=== PATIENT | male | born 1960 | race Caucasian/White ===

== ENCOUNTER 2017-04-25 16:30 | Inpatient (IN) | payer OTHER ==
[~2017-04-25] VITALS: Ht 175.3 cm; Wt 167.5 kg
[~2017-04-25 16:30] MED LIST: AMOXICILLIN500 M2 PO; ATORVASTATIN CA40 MG PO; AUGMENTIN 875 M1 TAB PO; BUPROPION HCL150 MG PO; CEFTIN 250 #201 PAC PO; Diamox PO; FLOMAX(MONOGRA0.4 MG PO; FUROSEMIDE80 M1 PO; FUROSEMIDE80 MG PO; JANUVIA 50MG50 MG PO; K-DUR 20MEQ TA20 MEQ PO; K-DUR20 MEQ PO; KEFLEX500 M1 PO; LASIX40 MG PO; LEVEMIR 10100 UNITS/ SC; LISINOPRIL20 MG PO; NOVOLOG100 U/ML SC; PERCOCET 5-3251 EACH PO; PREDNISONE 20MG20 MG PO; PRINIVIL10 MG PO; PROAIR HFA0.09 MG/Ac INH; SPIRIVA 18 MCG18 MCG INH; VITAMIN D250000 UNIT PO
[2017-04-25 17:01] LABS: ABSOLUTE BASOPHIL COUNT 0.1 /CUMM (0.0-0.2); ABSOLUTE EOSINOPHIL COUNT 0.1 /CUMM (0.0-0.7); ABSOLUTE GRANULOCYTE CT 5.3 /CUMM (1.4-6.5); ABSOLUTE LYMPH COUNT 1.8 /CUMM (1.2-3.4); ABSOLUTE MONOCYTE COUNT 0.7 /CUMM (0.10-0.60); BASOPHIL % 0.8 % (0.0-2.0); EOSINOPHIL % 1.6 % (0-5); GRANULOCYTE % 67.1 % (42.2-75.2); HEMATOCRIT 50.6 % (42-52); MEAN CORPUSCULAR HGB 30.4 PG (27.0-31.0); MEAN CORPUSCULAR HGB CONC 32.3 G/DL (33.0-37.0); MEAN CORPUSCULAR VOLUME 94.3 FL (80.0-94.0); MEAN PLATELET VOLUME 6.7 FL (7.4-10.4); PLATELET COUNT 220 /CUMM (130-400); RBC DISTRIBUTION WIDTH 16.8 % (11.5-14.5); RED BLOOD CELL CT 5.37 /CUMM (4.70-6.10)
--- NOTE | 2017-04-25 17:20 | ED GENERAL ADULT ---
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: patient Exam Limitations: not alert/orientated, poor historian Vital Signs & Intake/Output Vital Signs & Intake/Output Vital Signs Date Time Temp Pulse Resp B/P B/P Pulse O2 O2 Flow FiO2 Mean Ox Delivery Rate 04/25 1839 97.8 74 28 112/59 90 BIPAP 40% 04/25 1736 90 93 04/25 1701 92 Nasal 4.0L Cannula 04/25 1656 22 92 Nasal 4.0L Cannula 04/25 1650 92 Nasal 4.0L Cannula 04/25 1646 98.1 88 22 116/59 85 Room Air Allergies Coded Allergies: NO KNOWN ALLERGIES (05/18/14) Reconcile Medications Furosemide 80 MG TABLET 1 TAB PO TID FLUID OVERLOAD (Reported) Triage Note: RECEIVED 57 YO MALE BOUGHT DIRECTLY TO ROOM # 11 FOR TRIAGE AND EVALUATION. PT PRESENTED TO [facility] DESK WITH AN O2 SAT OF 85%. PT REPORTS WORSENING DIFFICULTY BREATHING STARTED LAST WEEK WITH PRODUCTIVE COUGH. PT WITH PMH OF COPD, + SMOKER, NOT ON O2 AT HOME. O2 SATS 85% ON ROOM AIR UPON ARRIVAL TO ROOM # 11. PT'S LEGS CHRONICALLY EDEMATOUS. PT EVALUATED BY DR MARIN. RESP THERAPIST IN TO EVALUATE PT AND ADMINISTER MED NEB TX ORDERED. Triage Nurses Notes Reviewed? yes Onset: Abrupt Duration: hour(s): Timing: recent history HPI: 04/25/17 8 PM 57-year-old male presents to the emergency department for difficulty breathing and cough. He has a severe history of hypercarbic respiratory failure and COPD. He is on CPAP. Known to the respiratory staff. He now presents with several days of cough and difficulty breathing. He denies chest pain. On presentation his O2 sat was in the 80s. 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 Albuterol and Atrovent nebulizer treatments were given. Respiratory therapy was called and the patient was placed on BiPAP. Past History Travel History Traveled to [place] past 21 day No Medical History Any Pertinent Medical History? 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 No Review of Systems Review of Systems Constitutional: Denies: fever. EENTM: Reports: no symptoms. Respiratory: Reports: cough, short of breath. Cardiovascular: Denies: chest pain. GI: Denies: abdominal pain. Genitourinary: Reports: no symptoms. Musculoskeletal: Reports: no symptoms. Skin: Reports: rash (stasis dermatitis). Neurological/Psychological: Reports: anxiety. Hematologic/Endocrine: Denies: bruising, bleeding. Physical Exam Physical Exam General Appearance: awake, anxious, severe distress Head: atraumatic, normal appearance Eyes: Bilateral: normal appearance, PERRL, EOMI. Ears, Nose, Throat: normal ENT inspection Neck: supple Respiratory: decreased breath sounds Cardiovascular: tachycardia Peripheral Pulses: 4+ radial (R), 4+ radial (L) Gastrointestinal: soft, non-tender Back: decreased range of motion Extremities: pedal edema, swelling Neurologic/Psych: no motor/sensory deficits, awake, oriented x 3 Skin: rash (stasis dermatitis) Core Measures ACS in differential dx? No CVA/TIA Diagnosis: No Sepsis Present: No Sepsis Focused Exam Completed? No Progress Differential Diagnoses I considered the following diagnoses in my evaluation of the patient: Plan of Care: Orders Procedure Date/time Status Nothing by Mouth 04/26 B Active Patient Data 04/25 1954 Active ED Holding Orders 04/25 1942 Active Admit to inpatient 04/25 1942 Active Vital Signs 04/25 1942 Active Code Status 04/25 1942 Active Intake & Output 04/25 1840 Active ARTERIAL BLOOD GAS (GEN) 04/25 1830 Complete Add-on Test (ER Only) 04/25 171 Active BIPAP 04/25 1710 Complete TROPONIN LEVEL 04/25 1653 Complete PROTHROMBIN TIME 04/25 1653 Complete D-DIMER 04/25 1653 Complete COMPREHENSIVE METABOLIC PANEL 04/25 1653 Complete CBC WITHOUT DIFFERENTIAL 04/25 1653 Complete B-TYPE NATRIURETIC PEP (BNP) 04/25 1653 Complete EKG 04/25 163 Active ARTERIAL BLOOD GAS (GEN) 04/25 1630 Complete Current Medications Sig/Teo Start time Last Medication Dose Stop Time Status Admin Ceftriaxone Sodium 1,000 MG ONCE ONE 04/25 2014 UNVr (Rocephin) 04/26 2015 Laboratory Tests 04/25/17 1830: pH 7.36, pCO2 62 *H, pO2 62 L, HCO3 34 H, ABG O2 Sat (Measured) 82.0 L, P-50 (Temp Corrected) N, Carboxyhemoglobin 10.0 *H, O2 Concentration % 40%, Temperature 98.1, Respiration Rate 28, O2 Delivery Method BIPAP, Vent Mode ST, Expiratory Pressure 8, Inspiratory Pressure 24, Phlebotomy Draw Site RIGHT RADIAL 04/25/17 1700: pH 7.34 L, pCO2 63 *H, pO2 66 L, HCO3 33 H, ABG O2 Sat (Measured) 82.0 L, P- 50 (Temp Corrected) N, Carboxyhemoglobin 10.9 *H, O2 Concentration % 4L, Temperature 98.1, O2 Delivery Method NC, Phlebotomy Draw Site RIGHT RADIAL 04/25/17 1654: Anion Gap 7, Estimated GFR > 60, BUN/Creatinine Ratio 24.3, Glucose 166 H, Calcium 8.4, Total Bilirubin 0.6, AST 19, ALT 38, Alkaline Phosphatase 83, Troponin I < 0.01, Nta-G-Ekxdysppssz Pept 158 H, Total Protein 6.7, Albumin 3.4 L, Globulin 3.3, Albumin/Globulin Ratio 1.0 L, PT 11.8, INR 1.08, D-Dimer High Sensitivty < 200, CBC w Diff NO MAN DIFF REQ, RBC 5.37, MCV 94.3 H, MCH 30.4, MCHC 32.3 L, RDW 16.8 H, MPV 6.7 L, Gran % 67.1, Lymphocytes % 22.2, Monocytes % 8.3, Eosinophils % 1.6, Basophils % 0.8, Absolute Granulocytes 5.3, Absolute Lymphocytes 1.8, Absolute Monocytes 0.7 H, Absolute Eosinophils 0.1, Absolute Basophils 0.1 CXR Impression: pulmonary vascular congestion- interpreted by the radiologist Initial ED EKG: NSR, PACs Prior EKG: unchanged Departure Departure Disposition: STILL A PATIENT Condition: Stable Clinical Impression Primary Impression: Hypercapnic respiratory failure Secondary Impressions: Congestive heart failure, COPD (chronic obstructive pulmonary disease) Referrals: Corey PALM,Orion Rankin (PCP/Family) Departure Forms: Customer Survey General Discharge Information Comments 04/25/17 The patient was admitted to the ICU for further care. I spoke with the respiratory therapist, a third blood gas will be obtained to assess response to BiPAP adjustment. IV Lasix was given initially as the chest x-ray was read as pulmonary vascular congestion. He was treated with albuterol and Atrovent, IV steroids, IV antibiotics, BiPAP. Admission Note Spoke With: Percy Camacho MD Documentation of Exam: Documentation of any treatments & extenuating circumstances including Concerns Regarding Discharge (functional status, medication knowledge or non-compliance, living conditions, etc.) that warrant an admission rather than observation: [The patient needs cardiac monitoring and continuous pulse oximetry, serial troponins , nebulizer treatments every 4 hours, IV steroids, consider pulmonary consult, oxygen, BiPAP] Critical Care Note Critical Care Note Critical Care Time: 30-74 min
[2017-04-25 17:37] LABS: PT 11.8 SEC (9.4-12.5)
--- NOTE | 2017-04-25 18:10 | RADIOLOGY REPORT ---
EXAMINATION: XR PORTABLE CHEST CLINICAL INFORMATION: Shortness of breath COMPARISON: 07/03/2015 TECHNIQUE: Portable frontal view of the chest was obtained. FINDINGS: Lung bases are clipped on this study. Recommend repeat filming. There does appear to be vascular congestion. No convincing evidence for overt failure. Extremely limited from body habitus. IMPRESSION: Incomplete exam. Lung bases are clipped. Findings otherwise suggest vascular congestion.
--- NOTE | 2017-04-25 20:42 | History & Physical ---
Clarence Plascencia MD 04/25/172041: General Information and HPI History of Present Illness: 57-year-old man with past medical history of chronic hypercarbic respiratory failure, TAN noncompliant with CPAP, cor pulmonale, COPD, PR, diabetes, hypothyroidism, gastric bypass hypertension, hyperlipidemia, chronic lymphedema seen for evaluation of shortness of breath and cough. Patient was previously admitted to [facility] from 07/03/15-07/08/15 for evaluation of a left lower extremity wound for which she was admitted with left lower extremity cellulitis and sepsis. Upon arrival patient was found to be saturating 85% in triage for which he was placed on supplemental oxygen and given a breathing treatment. He reported several day cough with difficulty breathing to the ED provider. Upon my arrival to the ED patient was somnolent and lethargic and not answering questions as he was on BiPAP. Subjective complaints and review of systems are unobtainable. Collateral information was obtained from patient's girlfriend Dorothy . She reports that patient developed shortness of breath with cough on Monday that had been waxing/waning since that time. This morning his shortness of breath was particularly bad for which she said the patient said he was going to the hospital. He did not endorse any other complaints. Allergies/Medications Allergies: Coded Allergies: NO KNOWN ALLERGIES (05/18/14) Home Med list Furosemide 80 MG TABLET 1 TAB PO TID FLUID OVERLOAD (Reported) Past History Travel History Traveled to [place] past 21 day No Medical History Neurological: NONE EENT: TUBES IN EARS CHILD Cardiovascular: chronic venous insuff, hypertension, myocardial infarction, HYPERLIPIDEMIA HIGH CHOLESTEROL right heart failure diastolic heart failure cor pulmonale Respiratory: COPD, obstructive sleep apnea Gastrointestinal: NONE Hepatic: NONE Musculoskeletal: MULTIPLE BROKEN BONES IN PAST NECK DISCECTOMY Psychiatric: NONE Endocrine: diabetes, hypothyroidism Blood Disorders: NONE Cancer(s): NONE, liver cancer 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 Exam & Diagnostic Data Last 24 Hrs of Vital Signs/I&O Vital Signs Date Time Temp Pulse Resp B/P B/P Pulse O2 O2 Flow FiO2 Mean Ox Delivery Rate 04/25 2213 88 BIPAP 40% 04/25 2213 97.6 78 33 108/00 88 BIPAP 40% 04/25 2156 75 30 123/70 87 BIPAP 40% 04/25 2054 98.3 74 20 122/66 93 BIPAP 40% 04/25 1839 97.8 74 28 112/59 90 BIPAP 40% 04/25 1736 90 93 04/25 1701 92 Nasal 4.0L Cannula 04/25 1656 22 92 Nasal 4.0L Cannula 04/25 1650 92 Nasal 4.0L Cannula 04/25 1646 98.1 88 22 116/59 85 Room Air Physical Exam General Appearance Somnolent, lethargic, minimally responsive Skin No Rashes, No Breakdown, No Significant Lesion Skin Temp/Moisture Exam: Warm/Dry Sepsis Skin Exam (color): Normal for Ethnicity HEENT Atraumatic, PERRLA, EOMI, Mucous Membr. moist/pink Neck Supple, No JVD Cardiovascular Regular Rate, Normal S1, Normal S2, No Murmurs Lungs Clear to Auscultation, Diminished airflow in all lung garcia with scattered rhonchi anteriorly, no wheezing or crackles Abdomen Normal Bowel Sounds, Soft, No Tenderness, No Hepatospenomegaly, No Masses Neurological Somnolent, AAOx0, follows simple commands Extremities No Clubbing, No Cyanosis, No Edema, Normal Pulses, No Tenderness/ Swelling, 4+ bilateral lower extremity swelling with severe scaling, no open wounds Vascular Normal Pulses, Pulses Symmetrical Sepsis Peripheral Pulse Location: Dorsalis Pedis Last 24 Hrs of Labs/Donato: Laboratory Tests 04/25/17 2100: Urine Opiates Screen < 100, Methadone Screen < 40, Barbiturate Screen < 60, Ur Phencyclidine Scrn < 6.00, Amphetamines Screen < 100, U Benzodiazepines Scrn < 85, Urine Cocaine Screen < 50, Urine Cannabis Screen < 5.00, Urine Color YEL, Urine Clarity CLEAR, Urine pH 6.0, Ur Specific [place] 1.020, Urine Protein NEG, Urine Ketones NEG, Urine Nitrite NEG, Urine Bilirubin NEG, Urine Urobilinogen 0.2, Ur Leukocyte Esterase NEG, Ur Microscopic EXAM NOT REQUIRED, Urine Hemoglobin NEG, Urine Glucose NEG 04/25/17 2020: pH 7.36, pCO2 62 *H, pO2 61 L, HCO3 34 H, ABG O2 Sat (Measured) 82.0 L, P-50 (Temp Corrected) N, Carboxyhemoglobin 9.0 *H, O2 Concentration % 40%, Temperature 98.1, Respiration Rate 30, O2 Delivery Method BIPAP, Vent Mode ST, Expiratory Pressure 8, Inspiratory Pressure 26, Phlebotomy Draw Site RIGHT RADIAL 04/25/17 1830: pH 7.36, pCO2 62 *H, pO2 62 L, HCO3 34 H, ABG O2 Sat (Measured) 82.0 L, P-50 (Temp Corrected) N, Carboxyhemoglobin 10.0 *H, O2 Concentration % 40%, Temperature 98.1, Respiration Rate 28, O2 Delivery Method BIPAP, Vent Mode ST, Expiratory Pressure 8, Inspiratory Pressure 24, Phlebotomy Draw Site RIGHT RADIAL 04/25/17 1700: pH 7.34 L, pCO2 63 *H, pO2 66 L, HCO3 33 H, ABG O2 Sat (Measured) 82.0 L, P- 50 (Temp Corrected) N, Carboxyhemoglobin 10.9 *H, O2 Concentration % 4L, Temperature 98.1, O2 Delivery Method NC, Phlebotomy Draw Site RIGHT RADIAL 04/25/17 1654: Anion Gap 7, Estimated GFR > 60, BUN/Creatinine Ratio 24.3, Glucose 166 H, Calcium 8.4, Total Bilirubin 0.6, AST 19, ALT 38, Alkaline Phosphatase 83, Troponin I < 0.01, Zvr-R-Gjhozkojxei Pept 158 H, Total Protein 6.7, Albumin 3.4 L, Globulin 3.3, Albumin/Globulin Ratio 1.0 L, PT 11.8, INR 1.08, D-Dimer High Sensitivty < 200, CBC w Diff NO MAN DIFF REQ, RBC 5.37, MCV 94.3 H, MCH 30.4, MCHC 32.3 L, RDW 16.8 H, MPV 6.7 L, Gran % 67.1, Lymphocytes % 22.2, Monocytes % 8.3, Eosinophils % 1.6, Basophils % 0.8, Absolute Granulocytes 5.3, Absolute Lymphocytes 1.8, Absolute Monocytes 0.7 H, Absolute Eosinophils 0.1, Absolute Basophils 0.1 Microbiology 04/26 2219 UPPER RESP: Surveillance Culture - RECD 04/26 2219 GI: Surveillance Culture - RECD 04/25 2104 LOWER RESP: Respiratory Culture - ORD 04/25 2104 LOWER RESP: Gram Stain - ORD 04/25 2099 URINE ROUT: Urine Culture - RECD Assessment/Plan Assessment: 57-year-old man with multiple medical problems seen for evaluation of worsening shortness of breath and cough. ED course -Vitals: MAXIMUM TEMPERATURE 98.1, HR 74-90, RR 22-28, SBP 112-116, O2 85% on room air -CBC: WBC 8.0, hemoglobin 16.3, hematocrit 50.6, platelet 220 -BMP: Sodium 135, potassium 3.8, chloride 89, CO2 39, urea 17, creatinine 0.7, anion gap 7, glucose 166 -LFT: AST 19 ALT 38, ALP 83, total bilirubin 0.6 -Miscellaneous: Kristopher 3.4, troponin I <0.01, d-dimer <200 are 1.08, BNP 158 -EKG 04/25/17 1651: NSR with poor r-wave progression -Chest x-ray: Incomplete exam, lung bases are clipped, findings otherwise suggest vascular congestion -ABG: PH 7.34, PCO2 63, PO2 66, HC03 33 -Urine toxicology: Negative -Urinalysis: Unremarkable Given patient's hypoxia and hypercarbia with a history of chronic respiratory failure and subjective shortness of breath patient clinically appears to have an acute hypercarbic/hypoxic respiratory failure with a COPD exacerbation. He is maintained on BiPAP and is minimally arousable. He is started on intravenous steroids/antibiotics and scheduled nebulizer treatments. He is to be seen by his drier Dr. Talbot in the morning. Problem List -Acute Hypoxic/Hypercarbic on chronic respiratory failure -COPD exacerbation -TAN noncompliant with CPAP -Cor pulmonale -Myocardial infarction -Eve-qhmjlqe-tvyqayknw Diabetes mellitus -Hypothyroidism -History of gastric bypass -Hypertension -Hyperlipidemia -Chronic lymphedema -Morbid obesity Plan -ICU Admission -TRC -Albuterol/Ipratropium Nebs Q6H -BiPAP: 26/8, 40%FiO2, Rate 30 -Morrell catheter -Ins & Outs -Elevate head of head -Solumedrol 40 mg IV Q6H -Azithromycin 500 mg IV Daily -PO lasix converted to IV, 80 mg PO -> 40 mg IV BID -Sputum culture -Pain control with acetaminophen -NPO for somnolence -DVT PPx with lovenox -FULL CODE As Ranked By This Provider Problem List: 1. COPD (chronic obstructive pulmonary disease) Core Measures/Misc (10/23) Acute Coronary Syndrome ACS Diagnosis: No Congestive Heart Failure Congestive Heart Failure Diagnosis No Cerebrovascular Accident CVA/TIA Diagnosis: No VTE (View Protocol) VTE Risk Factors Age>40 No Mechanical VTE Prophylaxis d/t N/A MechProphylax Ordered No VTE Pharm Prophylaxis d/t NA PharmProphylax ordered Sepsis (View protocol) Sepsis Present: No Doug PALM, [facility] 04/25/17 6758: Attending MD Review Statement Attending Statement Attending MD Statement: examined this patient, discuss w/resident/PA/CUPOLA OPERATOR INSULATION, agreed w/resident/PA/CUPOLA OPERATOR INSULATION, reviewed images, amended to note Attending Assessment/Plan: 57 yo morbidly obese M with h/o chronic respiratory failure, cor pulmonale ( right than left heart dysfunction), diastolic heart failure, chronic hypercarbia , TAN not compliant with CPAP, COPD, continues to smoke 1-2 PPD, HTN, DM, s/p gastric bypass sleeve surgery (2014), chronic lymphedema with previous recurrent cellulitis, presented to the ER for evaluation of worsening dyspnea and productive cough. On ER arrival, patient c/o chest tightness, his O2 sats were 85% on RA and he was placed on oxygen via NC and then transitioned to Bipap. Patient does not provide any history, he was lethargic at the time of evaluation and would only open his eyes to verbal commands. When asked if he has any chest pain or abdominal pain, he said no. History is very limited. As per records, patient was on oxygen at home, unclear if he still uses it. The only medication listed on his claim history is lasix 80 mg TID unknown if he is compliant with this. Vitals: afebrile, HR 70-80's, BP 122/66, sats 95% RA --> 92% on 4L --> 87 90% on Bipap 40%. Exam: Morbidly obese male, lethargic, minimal responsiveness to verbal stimuli, unable to assess orientation, currently on Bipap. Pupils equal and RTL, MMM, Chest b/l diminished air entry, with rhonchi++, mild wheezing, Heart S1S2 regular, Abd soft, distended, obese, LE: b/l lymphedema and chronic venous stasis skin changes. Pulses feeble but palpable. Unable to assess neuro exam. Labs: no leukocytosis, D-dimer <200, Na 135, bicarb 39, glucose 166, trop neg. ProBNP 158. AB.34/63/66/33 --> 7.36/62/62/34. UA and Utox negative. CXR: Pulmonary vascular congestion. EKG: sinus rhythm, PAC's, no acute changes. Echo (2014): EF 70%, moderate LVH, mild prolapse of posterior mitral valve leaflet. Assessment and plan: 1. Acute on chronic hypercarbic and hypoxemic respiratory failure 2. COPD exacerbation from possible acute bronchitis, no evidence of pneumonia 3. Acute on chronic diastolic heart failure 4. Severe cor pulmonale from TAN 5. Significant smoking history with carboxyhemoglobinemia 6. Severe lymphedema - Admit to ICU - Vitals Q1 hourly - Fall, aspiration precautions - Maintain on Bipap, check ABG at midnight and AM - Bipap settings adjusted with minimal to no change in ABG, clinically patient is more arousable and responds to verbal commands. Keep O2 sats ~ 88-90%. Low threshold to intubate. - TRC nebs, sputum culture if he is able to expectorate - IV solumedrol 40 Q6 - IV azithro for 5 days - Pulm consult Dr. Talbot - Strict I/O's, daily weights, morrell placement - IV lasix 40 BID - Serial EKG and troponin - Repeat Echo and obtain Cardio consult (Dr. Browne) - Obtain more collateral information in AM - NPO - Check TSH, free T4, Mag - GI ppx IV protonix DVT ppx Lovenox. Full code. TTS > 55 mins
--- NOTE | 2017-04-25 21:55 | Admission Certification ---
Admission Certification Certification Statement - As attending physician, I certify that at the time of - admission, based on clinical presentation, severity of - symptoms, need for further diagnostic testing and - therapeutic interventions, and risk of adverse outcomes - without in-hospital treatment, in my clinical assessment, - this patient requires an acute hospital stay for a minimum - of two nights or longer. I have also considered psychsocial - factors such as support system, advanced age, financial - issues, cognitive issues, and failed out-patient treatments, - past re-admission history, safety of patient, and lack of - compliance as applicable. Specific rationale supporting this admission is: Acute on chronic hypercarbic and hypoxemic respiratory failure, requiring ICU level of care.
[2017-04-25 22:14] VITALS: BP 108/00
[2017-04-26] VITALS: BP 110/68
[2017-04-26 03:09] LABS: ABSOLUTE BASOPHIL COUNT 0 /CUMM (0.0-0.2); ABSOLUTE EOSINOPHIL COUNT 0 /CUMM (0.0-0.7); ABSOLUTE LYMPH COUNT 0.5 /CUMM (1.2-3.4); PLATELET COUNT 177 /CUMM (130-400)
[2017-04-26 03:52] LABS: ABSOLUTE GRANULOCYTE CT 7.2 /CUMM (1.4-6.5); ABSOLUTE MONOCYTE COUNT 0 /CUMM (0.10-0.60); BASOPHIL % 0 % (0.0-2.0); EOSINOPHIL % 0 % (0-5); GRANULOCYTE % 92.6 % (42.2-75.2); HEMATOCRIT 52.2 % (42-52); MEAN CORPUSCULAR HGB 30.1 PG (27.0-31.0); MEAN CORPUSCULAR VOLUME 94.4 FL (80.0-94.0); MEAN PLATELET VOLUME 7.4 FL (7.4-10.4); RBC DISTRIBUTION WIDTH 15.9 % (11.5-14.5); RED BLOOD CELL CT 5.53 /CUMM (4.70-6.10); WHITE BLOOD CELL COUNT 7.8 /CUMM (4.8-10.8)
--- NOTE | 2017-04-26 07:17 | Cons- CRCU ---
General Information and HPI Consulting Request Date of Consult: 04/26/17 Requested By: Hospitalist Dr Percy Camacho Reason for Consult: Acute on chronic hypoxic hypercarbic respiratory failure Source of Information: patient, friend (Dorothy) Exam Limitations: no limitations History of Present Illness: 57-year-old man with past medical history of chronic hypercarbic respiratory failure, TAN noncompliant with CPAP, cor pulmonale, COPD, [place], diabetes, hypothyroidism, gastric bypass hypertension, hyperlipidemia, chronic lymphedema seen for evaluation of shortness of breath and cough. Patient was previously admitted to [facility] from 07/03/15-07/08/15 for evaluation of a left lower extremity wound for which she was admitted with left lower extremity cellulitis and sepsis. Upon arrival patient was found to be saturating 85% in triage for which he was placed on supplemental oxygen and given a breathing treatment. He reported several day cough with difficulty breathing to the ED provider. Upon my arrival to the ED patient was somnolent and lethargic and not answering questions as he was on BiPAP. Subjective complaints and review of systems are unobtainable. Collateral information was obtained from patient's girlfriend Dorothy . She reports that patient developed shortness of breath with cough on Monday that had been waxing/waning since that time. This morning his shortness of breath was particularly bad for which she said the patient said he was going to the hospital. He did not endorse any other complaints. Allergies/Medications Allergies: Coded Allergies: NO KNOWN ALLERGIES (05/18/14) Home Med List: Furosemide 80 MG TABLET 1 TAB PO TID FLUID OVERLOAD (Reported) Current Medications: Current Medications Sig/Teo Start time Last Medication Dose Route Stop Time Status Admin Acetaminophen 1,000 MG Q6P PRN 04/25 2099 AC IV Albuterol Sulfate 3 ML TID 04/26 1600 AC 04/26 INH 1337 Albuterol Sulfate 3 ML Q6 PRN 04/25 2114 DC INH Azithromycin 500 MG 2100 04/26 2099 AC Dextrose/Water 250 ML IV Azithromycin 500 MG DAILY 04/25 2100 DC Dextrose/Water 250 ML IV Azithromycin 500 MG ONCE ONE 04/25 2044 DC 04/25 Dextrose/Water 250 ML IV 04/25 Ceftriaxone Sodium 1,000 MG ONCE ONE 04/25 2014 CAN IV 04/26 2015 Enoxaparin Sodium 40 MG DAILY 04/26 1000 AC 04/26 SC 0949 Furosemide 40 MG BID 04/26 1000 AC 04/26 IV 0949 Furosemide 40 MG TID 04/25 2200 DC IV Insulin Aspart 0 TIDAC 04/26 1700 AC 04/26 SC 1633 Insulin Human Regular 0 Q6 04/26 1200 DC 04/26 SC 1203 Ipratropium [place] 2.5 ML TID 04/26 1600 AC 04/26 INH 1337 Ipratropium [place] 2.5 ML Q6 04/25 2359 DC INH Methylprednisolone 40 MG DAILY 04/27 1000 AC IV Methylprednisolone 40 MG Q6 04/25 2359 DC 04/26 IV 0526 Methylprednisolone 0 .STK-MED ONE 04/25 2002 DC .ROUTE Ondansetron HCl 4 MG Q6P PRN 04/26 1545 AC IV Review of Systems Review of Systems Constitutional: Reports: no symptoms. EENTM: Reports: no symptoms. Cardiovascular: Reports: no symptoms. Respiratory: Reports: see HPI, cough, short of breath. GI: Reports: no symptoms. Genitourinary: Reports: no symptoms. Musculoskeletal: Reports: no symptoms. Skin: Reports: no symptoms. Neurological/Psychological: Reports: no symptoms. Hematologic/Endocrine: Reports: no symptoms. 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 Home Services at Home: None Smoking Status: Current Everyday Smoker Functional Ability ADLs Independent: dressing, eating, toileting, bathing. Ambulation: independent IADLs Independent: shopping, housework, finances, food prep, telephone, transportation , medication admin. Exam & Diagnostic Data Last 24 Hrs of Vital Signs/I&O Vital Signs Date Time Temp Pulse Resp B/P B/P Pulse O2 O2 Flow FiO2 Mean Ox Delivery Rate 04/26 1659 91 Nasal 6.0L Cannula 04/26 1600 97.3 74 20 104/60 90 Nasal 5.0L Cannula 04/26 1600 91 Nasal 5.0L Cannula 04/26 1404 Nasal 5.0L Cannula 04/26 1200 96 BIPAP 55% 04/26 1148 68 93 04/26 0821 70 92 04/26 0800 97.8 68 30 110/60 93 BIPAP 55% 04/26 0800 91 BIPAP 55% 04/26 0614 67 87 04/26 0400 86 BIPAP 55% 04/26 0211 67 88 04/26 0015 68 90 04/26 0000 89 BIPAP 45% 04/26 0000 97.8 66 30 110/68 89 BIPAP 45% 04/25 2214 88 BIPAP 40% 04/25 2214 97.6 78 33 108/00 88 BIPAP 40% 04/25 2156 75 30 123/70 87 BIPAP 40% 04/25 2054 98.3 74 20 122/66 93 BIPAP 40% Intake & Output 04/26 1600 04/26 0800 04/26 0000 Intake Total 30 24 250 Output Total 650 240 200 Balance -620 -216 50 Intake, IV 30 24 250 Intake, Oral 0 0 Number 0 0 Bowel Movements Output, Urine 650 240 200 Patient 169.218 kg 171.3 kg Weight Weight Bed scale Bed scale Measurement Method Physical Exam General Appearance: alert, awake, morbidly obese, using BiPAP Other Physical Findings: Full examination was performed after the patient was off BiPAP: Skin Rough, DRY SKIN, No Rashes, No Breakdown, No Significant Lesion HEENT Atraumatic, PERRLA, EOMI, Mucous Membr. moist/pink Neck Supple, No JVD Cardiovascular Regular Rate, Normal S1, Normal S2, No Murmurs Lungs Clear to Auscultation, no wheezing or crackles Abdomen Normal Bowel Sounds, Soft, No Tenderness Neurological grossly intact Extremities No Clubbing, No Cyanosis, Normal Pulses, No Tenderness/Swelling, 4+ bilateral lower extremity swelling with severe scaling, no open wounds Vascular Normal Pulses, Pulses Symmetrical Last 48 Hrs of Labs/Donato: Laboratory Tests 03/21/18 1815: Anion Gap 9, Estimated GFR > 60, Glucose 181 H, Calcium 8.4, Phosphorus 3.8, Magnesium 1.9, Total Bilirubin 0.6, AST 18, ALT 35, Albumin 3.5 04/26/17 0625: pH 7.38, pCO2 59 H, pO2 60 L, HCO3 34 H, ABG O2 Sat (Measured) 90.0 L, P-50 (Temp Corrected) N, Carboxyhemoglobin 4.3, O2 Concentration % .55, Respiration Rate 30, O2 Delivery Method BIPAP, Vent Mode ST, Expiratory Pressure 8, Inspiratory Pressure 28, Phlebotomy Draw Site LEFT RADIAL 04/26/17 0530: Ferritin 46.9, Vitamin B12 479, Folate 12.6, TSH 0.949, Free T4 1.12 04/26/17 0500: Troponin I Cancelled 04/26/17 0230: Anion Gap 10, Estimated GFR > 60, Glucose 206 H, Hemoglobin A1c 8.1 H, Calcium 8.3 L, Phosphorus 4.3, Magnesium 2.0, Total Bilirubin 0.6, AST 22, ALT 44, Troponin I < 0.01, Albumin 3.6, CBC w Diff MAN DIFF ORDERED, RBC 5.53, MCV 94.4 H, MCH 30.1, MCHC 32.0 L, RDW 15.9 H, MPV 7.4, Gran % 92.6 H, Lymphocytes % 6.9 L, Monocytes % 0.5 L, Eosinophils % 0, Basophils % 0, Absolute Granulocytes 7.2 H, Segmented Neutrophils 82 H, Band Neutrophils 4, Absolute Lymphocytes 0.5 L, Lymphocytes 10 L, Monocytes 4, Absolute Monocytes 0 L, Absolute Eosinophils 0, Absolute Basophils 0, Platelet Estimate ADEQUATE, Polychromasia 1+, Anisocytosis 1+, Stomatocytes 1+, Elliptocytes FEW 04/26/17 0100: pH 7.34 L, pCO2 67 *H, pO2 58 L, HCO3 35 H, ABG O2 Sat (Measured) 89.0 L, P- 50 (Temp Corrected) N, Carboxyhemoglobin 7.1 *H, O2 Concentration % .50, Respiration Rate 30, O2 Delivery Method BIPAP, Vent Mode ST, Expiratory Pressure 8, Inspiratory Pressure 28, Phlebotomy Draw Site LEFT RADIAL 04/25/17 2100: Urine Opiates Screen < 100, Methadone Screen < 40, Barbiturate Screen < 60, Ur Phencyclidine Scrn < 6.00, Amphetamines Screen < 100, U Benzodiazepines Scrn < 85, Urine Cocaine Screen < 50, Urine Cannabis Screen < 5.00, Urine Color YEL, Urine Clarity CLEAR, Urine pH 6.0, Ur Specific [place] 1.020, Urine Protein NEG, Urine Ketones NEG, Urine Nitrite NEG, Urine Bilirubin NEG, Urine Urobilinogen 0.2, Ur Leukocyte Esterase NEG, Ur Microscopic EXAM NOT REQUIRED, Urine Hemoglobin NEG, Urine Glucose NEG 04/25/17 2020: pH 7.36, pCO2 62 *H, pO2 61 L, HCO3 34 H, ABG O2 Sat (Measured) 82.0 L, P-50 (Temp Corrected) N, Carboxyhemoglobin 9.0 *H, O2 Concentration % 40%, Temperature 98.1, Respiration Rate 30, O2 Delivery Method BIPAP, Vent Mode ST, Expiratory Pressure 8, Inspiratory Pressure 26, Phlebotomy Draw Site RIGHT RADIAL 04/25/17 1830: pH 7.36, pCO2 62 *H, pO2 62 L, HCO3 34 H, ABG O2 Sat (Measured) 82.0 L, P-50 (Temp Corrected) N, Carboxyhemoglobin 10.0 *H, O2 Concentration % 40%, Temperature 98.1, Respiration Rate 28, O2 Delivery Method BIPAP, Vent Mode ST, Expiratory Pressure 8, Inspiratory Pressure 24, Phlebotomy Draw Site RIGHT RADIAL 04/25/17 1700: pH 7.34 L, pCO2 63 *H, pO2 66 L, HCO3 33 H, ABG O2 Sat (Measured) 82.0 L, P- 50 (Temp Corrected) N, Carboxyhemoglobin 10.9 *H, O2 Concentration % 4L, Temperature 98.1, O2 Delivery Method NC, Phlebotomy Draw Site RIGHT [facility] 04/25/17 1654: Anion Gap 7, Estimated GFR > 60, BUN/Creatinine Ratio 24.3, Glucose 166 H, Calcium 8.4, Total Bilirubin 0.6, AST 19, ALT 38, Alkaline Phosphatase 83, Troponin I < 0.01, Ewg-M-Gpulqcudodn Pept 158 H, Total Protein 6.7, Albumin 3.4 L, Globulin 3.3, Albumin/Globulin Ratio 1.0 L, PT 11.8, INR 1.08, D-Dimer High Sensitivty < 200, CBC w Diff NO MAN DIFF REQ, RBC 5.37, MCV 94.3 H, MCH 30.4, MCHC 32.3 L, RDW 16.8 H, MPV 6.7 L, Gran % 67.1, Lymphocytes % 22.2, Monocytes % 8.3, Eosinophils % 1.6, Basophils % 0.8, Absolute Granulocytes 5.3, Absolute Lymphocytes 1.8, Absolute Monocytes 0.7 H, Absolute Eosinophils 0.1, Absolute Basophils 0.1 Assessment/Plan CRCU Impression/Plan: 57-year-old male with past history of COPD, obstructive sleep apnea noncompliant with CPAP, cor pulmonale, WI, hypertension, hyperlipidemia, diabetes, hypothyroidism, gastric bypass surgery, chronic lymphedema presented to the emergency department with shortness of breath and cough. He is being treated in the ICU for the following issues: #Acute on chronic hypoxic hypercarbic respiratory failure, secondary to COPD exacerbation, acute bronchitis Patient's clinical picture, lab values, and a fairly benign chest x-ray is suggestive of acute bronchitis that exacerbated his COPD and landed up in acute respiratory failure as shown by the ABG. He received BiPAP treatments until this morning, and later during the day was saturating well on nasal cannula. Lower extremity Dopplers were negative for DVT. * Will continue management in ICU * Continue azithromycin * Continue steroid, change frequency to daily * Continue TRC/nebs * Continue IV Lasix 40 mg BID * Follow Sputum culture * Shane Talbot MD consulting, will follow recommendations #Diabetes mellitus Patient's previous as be A1c levels consistently so that he wasn't diabetic range although the patient had not accepted the diagnosis yet according to the discussions with the patient himself and his PCP Orion Nicole MD. we had a conversation about the condition, and he agreed to continue diabetes care at least for this admission and would further follow-up with his PCP. * Diabetic diet, insulin sliding scale/low-dose as he is Insulin naive, and regular accuchecks. #Cardiology recs: Followed troponin x2, EKG to rule out ACS, and following diuresis. Echo results pending. #Patient's TFT is normal and I also checked with his PCP and his pharmacy that he does not take any Levothyroxine, nor had any hypothyroidism anytime in the past. #Diet: Initially NPO, was given CC2 diet, after bedside swallow screening by me #DVT ppx:SQ Lovenox #Code status: Full code Consult Acknowledgment - Thank you for your consult request.
[2017-04-26 08:00] VITALS: BP 110/60
--- NOTE | 2017-04-26 09:27 | PN- CRCU ---
Subjective HPI/Critical Care Issues: 57-year-old man with past medical history of chronic hypercarbic respiratory failure, TAN noncompliant with CPAP, cor pulmonale, COPD, [place], diabetes, hypothyroidism, gastric bypass hypertension, hyperlipidemia, chronic lymphedema seen for evaluation of shortness of breath and cough. Patient was previously admitted to [facility] from 07/03/15-07/08/15 for evaluation of a left lower extremity wound for which she was admitted with left lower extremity cellulitis and sepsis. Per history patient developed shortness of breath with cough on Monday that had been waxing/waning since that time. Since then he came in to the ER yesterday and was promptly put on bipap. Since then he has stablilized This am on bipap and was awake and alert and did say that he is slightly better No other history could be obtained due to patients condition Objective Current Medications: Current Medications Sig/Teo Start time Last Medication Dose Route Stop Time Status Admin Acetaminophen 1,000 MG Q6P PRN 04/25 2099 AC IV Albuterol Sulfate 3 ML Q6 PRN 04/25 2114 AC INH Albuterol Sulfate 3 ML ONCE ONE 04/25 1944 DC 04/25 INH 04/25 1945 165 Azithromycin 500 MG DAILY 04/25 2100 AC Dextrose/Water 250 ML IV Azithromycin 500 MG ONCE ONE 04/25 2044 DC 04/25 Dextrose/Water 250 ML IV 04/26 2143 213 Ceftriaxone Sodium 1,000 MG ONCE ONE 04/25 2014 CAN IV 04/26 2015 Enoxaparin Sodium 40 MG DAILY 04/26 1000 AC SC Furosemide 40 MG BID 04/26 1000 AC IV Furosemide 40 MG TID 04/250 DC IV Furosemide 0 .STK-MED ONE 04/25 1933 DC IV Furosemide 40 MG ONCE ONE 04/25 1914 DC 04/25 IV PUSH 04/26 1915 193 Ipratropium [place] 2.5 ML Q6 04/25 2358 AC INH Ipratropium [place] 2.5 ML ONCE ONE 04/25 1944 DC 04/25 INH 04/25 1945 165 Methylprednisolone 40 MG Q6 04/25 235 AC 04/26 IV 0526 Methylprednisolone 0 .STK-MED ONE 04/25 2002 DC .ROUTE Methylprednisolone 125 MG ONCE ONE 04/25 1944 DC 04/25 IV 04/25 Vital Signs & I&O Last 24 Hrs of Vitals and I&O: Vital Signs Date Time Temp Pulse Resp B/P B/P Pulse O2 O2 Flow FiO2 Mean Ox Delivery Rate 04/26 0821 70 92 04/26 0800 97.8 68 30 110/60 93 BIPAP 55% 04/26 0614 67 87 04/26 0400 86 BIPAP 55% 04/26 0211 67 88 04/26 0015 68 90 04/26 0000 89 BIPAP 45% 04/26 0000 97.8 66 30 110/68 89 BIPAP 45% 04/25 2214 88 BIPAP 40% 04/25 2214 97.6 78 33 108/00 88 BIPAP 40% 04/25 2156 75 30 123/70 87 BIPAP 40% 04/25 2054 98.3 74 20 122/66 93 BIPAP 40% 04/25 1839 97.8 74 28 112/59 90 BIPAP 40% 04/25 1736 90 93 04/25 1701 92 Nasal 4.0L Cannula 04/25 1656 22 92 Nasal 4.0L Cannula 04/25 1650 92 Nasal 4.0L Cannula 04/25 1646 98.1 88 22 116/59 85 Room Air Intake & Output 04/26 1600 04/26 0800 04/26 0000 Intake Total 24 250 Output Total 240 200 Balance -216 50 Intake, IV 24 250 Intake, Oral 0 Number 0 Bowel Movements Output, Urine 240 200 Patient 373 lb 378 lb Weight Weight Bed scale Bed scale Measurement Method Laboratory Tests 04/26 04/26 04/26 0625 0530 0500 Blood Gas pH (7.35 - 7.45 PH) 7.38 pCO2 (35 - 45 TORR) 59 H pO2 (80 - 100 TORR) 60 L HCO3 (21 - 28 MEQ/L) 34 H ABG O2 Sat (Measured) (>96.0 %) 90.0 L P-50 (Temp Corrected) N Carboxyhemoglobin (1.5 - 5.0 %) 4.3 O2 Concentration % .55 Respiration Rate (BPM) 30 O2 Delivery Method BIPAP Vent Mode ST Expiratory Pressure (CM H2O P) 8 Inspiratory Pressure (CM H2O P) 28 Chemistry Troponin I Cancelled TSH (0.270 - 4.200 uIU/mL) 0.949 Free T4 (0.64 - 1.79 ng/dL) 1.12 Miscellaneous Phlebotomy Draw Site LEFT RADIAL 04/26 04/26 0230 0100 Blood Gas pH (7.35 - 7.45 PH) 7.34 L pCO2 (35 - 45 TORR) 67 *H pO2 (80 - 100 TORR) 58 L HCO3 (21 - 28 MEQ/L) 35 H ABG O2 Sat (Measured) (>96.0 %) 89.0 L P-50 (Temp Corrected) N Carboxyhemoglobin (1.5 - 5.0 %) 7.1 *H O2 Concentration % .50 Respiration Rate (BPM) 30 O2 Delivery Method BIPAP Vent Mode ST Expiratory Pressure (CM H2O P) 8 Inspiratory Pressure (CM H2O P) 28 Chemistry Sodium (137 - 145 mmol/L) 136 L Potassium (3.5 - 5.1 mmol/L) 5.0 Chloride (98 - 107 mmol/L) 90 L Carbon Dioxide (22 - 30 mmol/L) 36 H Anion Gap (5 - 16) 10 BUN (9 - 20 mg/dL) 18 Creatinine (0.7 - 1.2 mg/dL) 0.7 Estimated GFR (>60 ml/min) > 60 Glucose (65 - 99 mg/dL) 206 H Calcium (8.4 - 10.2 mg/dL) 8.3 L Phosphorus (2.5 - 4.5 mg/dL) 4.3 Magnesium (1.6 - 2.3 mg/dL) 2.0 Total Bilirubin (0.2 - 1.3 mg/dL) 0.6 AST (17 - 59 U/L) 22 ALT (21 - 72 U/L) 44 Troponin I (<0.11 ng/ml) < 0.01 Albumin (3.5 - 5.0 g/dL) 3.6 Hematology CBC w Diff MAN DIFF ORDERED WBC (4.8 - 10.8 /CUMM) 7.8 RBC (4.70 - 6.10 /CUMM) 5.53 Hgb (14.0 - 18.0 G/DL) 16.7 Hct (42 - 52 %) 52.2 H MCV (80.0 - 94.0 FL) 94.4 H MCH (27.0 - 31.0 PG) 30.1 MCHC (33.0 - 37.0 G/DL) 32.0 L RDW (11.5 - 14.5 %) 15.9 H Plt Count (130 - 400 /CUMM) 177 MPV (7.4 - 10.4 FL) 7.4 Gran % (42.2 - 75.2 %) 92.6 H Lymphocytes % (20.5 - 51.1 %) 6.9 L Monocytes % (1.7 - 9.3 %) 0.5 L Eosinophils % (0 - 5 %) 0 Basophils % (0.0 - 2.0 %) 0 Absolute Granulocytes (1.4 - 6.5 /CUMM) 7.2 H Segmented Neutrophils (42.2 - 75.2 %) 82 H Band Neutrophils (0.0 - 5.0 %) 4 Absolute Lymphocytes (1.2 - 3.4 /CUMM) 0.5 L Lymphocytes (20.5 - 51.1 %) 10 L Monocytes (1.7 - 9.3 %) 4 Absolute Monocytes (0.10 - 0.60 /CUMM) 0 L Absolute Eosinophils (0.0 - 0.7 /CUMM) 0 Absolute Basophils (0.0 - 0.2 /CUMM) 0 Platelet Estimate (ADEQUATE) ADEQUATE Polychromasia 1+ Anisocytosis 1+ Stomatocytes 1+ Elliptocytes FEW Miscellaneous Phlebotomy Draw Site LEFT RADIAL 04/25 Blood Gas pH (7.35 - 7.45 PH) 7.36 pCO2 (35 - 45 TORR) 62 *H pO2 (80 - 100 TORR) 61 L HCO3 (21 - 28 MEQ/L) 34 H ABG O2 Sat (Measured) (>96.0 %) 82.0 L P-50 (Temp Corrected) N Carboxyhemoglobin (1.5 - 5.0 %) 9.0 *H O2 Concentration % 40% Temperature (97.0 - 100.0 FARH) 98.1 Respiration Rate (BPM) 30 O2 Delivery Method BIPAP Vent Mode ST Expiratory Pressure (CM H2O P) 8 Inspiratory Pressure (CM H2O P) 26 Miscellaneous Phlebotomy Draw Site RIGHT RADIAL Toxicology Urine Opiates Screen (>2000 NG/ML) < 100 Methadone Screen (>300 NG/ML) < 40 Barbiturate Screen (>200 NG/ML) < 60 Ur Phencyclidine Scrn (>25 NG/ML) < 6.00 Amphetamines Screen (>1000 NG/ML) < 100 U Benzodiazepines Scrn (>200 NG/ML) < 85 Urine Cocaine Screen (>300 NG/ML) < 50 Urine Cannabis Screen (>50 NG/ML) < 5.00 Urines Urine Color (YEL,AMB,STR) YEL Urine Clarity (CLEAR) CLEAR Urine pH (5.0 - 8.0) 6.0 Ur Specific [place] (1.001 - 1.035) 1.020 Urine Protein (NEG,<30 MG/DL) NEG Urine Ketones (NEG) NEG Urine Nitrite (NEG) NEG Urine Bilirubin (NEG) NEG Urine Urobilinogen (0.1 - 1.0 EU/dl) 0.2 Ur Leukocyte Esterase (NEG) NEG Ur Microscopic EXAM NOT REQUIRED Urine Hemoglobin (NEG) NEG Urine Glucose (N MG/DL) NEG 04/25 04/25 1830 1700 Blood Gas pH (7.35 - 7.45 PH) 7.36 7.34 L pCO2 (35 - 45 TORR) 62 *H 63 *H pO2 (80 - 100 TORR) 62 L 66 L HCO3 (21 - 28 MEQ/L) 34 H 33 H ABG O2 Sat (Measured) (>96.0 %) 82.0 L 82.0 L P-50 (Temp Corrected) N N Carboxyhemoglobin (1.5 - 5.0 %) 10.0 *H 10.9 *H O2 Concentration % 40% 4L Temperature (97.0 - 100.0 FARH) 98.1 98.1 Respiration Rate (BPM) 28 O2 Delivery Method BIPAP NC Vent Mode ST Expiratory Pressure (CM H2O P) 8 Inspiratory Pressure (CM H2O P) 24 Miscellaneous Phlebotomy Draw Site RIGHT RADIAL RIGHT RADIAL 04/25 1654 Chemistry Sodium (137 - 145 mmol/L) 135 L Potassium (3.5 - 5.1 mmol/L) 3.8 Chloride (98 - 107 mmol/L) 89 L Carbon Dioxide (22 - 30 mmol/L) 39 H Anion Gap (5 - 16) 7 BUN (9 - 20 mg/dL) 17 Creatinine (0.7 - 1.2 mg/dL) 0.7 Estimated GFR (>60 ml/min) > 60 BUN/Creatinine Ratio (7 - 25 %) 24.3 Glucose (65 - 99 mg/dL) 166 H Calcium (8.4 - 10.2 mg/dL) 8.4 Total Bilirubin (0.2 - 1.3 mg/dL) 0.6 AST (17 - 59 U/L) 19 ALT (21 - 72 U/L) 38 Alkaline Phosphatase (< 127 U/L) 83 Troponin I (<0.11 ng/ml) < 0.01 Erc-D-Jhymmobrump Pept (<125 pg/mL) 158 H Total Protein (6.3 - 8.2 g/dL) 6.7 Albumin (3.5 - 5.0 g/dL) 3.4 L Globulin (1.9 - 4.2 gm/dL) 3.3 Albumin/Globulin Ratio (1.1 - 2.2 %) 1.0 L Coagulation PT (9.4 - 12.5 SEC) 11.8 INR (0.90 - 1.17) 1.08 D-Dimer High Sensitivty (0 - 243 ng/ml) < 200 Hematology CBC w Diff NO MAN DIFF REQ WBC (4.8 - 10.8 /CUMM) 8.0 RBC (4.70 - 6.10 /CUMM) 5.37 Hgb (14.0 - 18.0 G/DL) 16.3 Hct (42 - 52 %) 50.6 MCV (80.0 - 94.0 FL) 94.3 H MCH (27.0 - 31.0 PG) 30.4 MCHC (33.0 - 37.0 G/DL) 32.3 L RDW (11.5 - 14.5 %) 16.8 H Plt Count (130 - 400 /CUMM) 220 MPV (7.4 - 10.4 FL) 6.7 L Gran % (42.2 - 75.2 %) 67.1 Lymphocytes % (20.5 - 51.1 %) 22.2 Monocytes % (1.7 - 9.3 %) 8.3 Eosinophils % (0 - 5 %) 1.6 Basophils % (0.0 - 2.0 %) 0.8 Absolute Granulocytes (1.4 - 6.5 /CUMM) 5.3 Absolute Lymphocytes (1.2 - 3.4 /CUMM) 1.8 Absolute Monocytes (0.10 - 0.60 /CUMM) 0.7 H Absolute Eosinophils (0.0 - 0.7 /CUMM) 0.1 Absolute Basophils (0.0 - 0.2 /CUMM) 0.1 Microbiology Date/Time Procedure - Status Source Growth 04/26 2219 Surveillance Culture - RECD UPPER RESP 04/26 2219 Surveillance Culture - RECD GI 04/25 2104 Respiratory Culture - COLB LOWER RESP 04/25 2104 Gram Stain - COLB LOWER RESP 04/25 2099 Urine Culture - RES URINE ROUT Impression/Plan Impression/Plan Impression/Plan: General Appearance Somnolent, on bipap and A/A/O x 3 Skin No Rashes, No Breakdown, No Significant Lesion Skin Temp/Moisture Exam: Warm/Dry Sepsis Skin Exam (color): Normal for Ethnicity HEENT Atraumatic, PERRLA, EOMI, Mucous Membr. moist/pink Neck Supple, No JVD Cardiovascular Regular Rate, Normal S1, Normal S2, No Murmurs Lungs Clear to Auscultation, Diminished airflow in all lung garcia with scattered rhonchi anteriorly, no wheezing or crackles Abdomen Normal Bowel Sounds, Soft, No Tenderness, No Hepatospenomegaly, No Masses Neurological Somnolent, AAOx0, follows simple commands Extremities No Clubbing, No Cyanosis, No Edema, Normal Pulses, No Tenderness/ Swelling, 4+ bilateral lower extremity swelling with severe scaling, no open wounds Vascular Normal Pulses, Pulses Symmetrical IMPRESSION This is a gentleman with severe morbid obesity with previous gastric sleeve surgery which had initially worked but now has put on sig weight, very severe obstructive sleep apnea with previous cor pulmonale right more than left heart dysfunction in the past, moderate COPD, significant smoking history more than [id number] smoker now smokes more than 1 packs a day, noncompliant with CPAP management, diabetes history, hypertension, hyperlipidemia, history of hypothyroidism, previous admission to this hospital for biventricular heart failure respiratory failure and cor pulmonale, chronic lymphedema of both legs, chronic dermatitis of his leg with lymphedema, previous history of recurrent cellulitis and lymphadenopathy in the groin now comes in with * Acute on chronic Hypercarbic resp failure due to noncompliance with cpap * Acute corpulmonale with rt heart failure * 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 packs a day smoker) * Sig copd with Acute bronchitis * Morbid obesity * Severe TAN and not compliant with cpap * DM and hypothryoid on meds at home * Chronic lymphedema of both lower ext REC/PLAN Cont BIpap Keep HOB up NPO for now Cont lasix Check labs this pm and keep Potassium more than 4.5 Reduce steroids to 40 mg qd Cont nebs atc Cont abx FSG and sliding scale Get home meds and resume levoxyl if he was on any Sputum culture On and off Bipap this am and needs bipap at hs Lower ext dopplers Check A1c, b12, folate, ferritin level Keep sat at 90 percent Cont lovenox Echo to assess LVF and PA pressures Pt is critically ill tts 50 mins
--- NOTE | 2017-04-26 09:38 | Cons- Cardiology ---
General Information and HPI Consulting Request Date of Consult: 04/26/17 Requested By: Doug PALM,Percy Reason for Consult: rESPIRATORY FAILURE Source of Information: old records Exam Limitations: clinical condition History of Present Illness: the patient is a 57-year-old male who is admitted to the ICU for evaluation of worsening shortness of breath and cough. His past mental history is remarkable for chronic hypercapnic respiratory failure, sleep apnea, noncompliance with CPAP, COPD, cor pulmonale, reported coronary disease and prior [place], hypothyroidism, hypertension, hyperlipidemia, etc. He also has a history of left lower extremity cellulitis. on arrival to the emergency room, the patient's oxygen saturation was 85%. He is now in the ICU, on BiPAP. No obvious cardiac symptoms have been noted at this moment. Allergies/Medications Allergies: Coded Allergies: NO KNOWN ALLERGIES (05/18/14) Home Med List: Furosemide 80 MG TABLET 1 TAB PO TID FLUID OVERLOAD (Reported) Current Medications: Current Medications Sig/Teo Start time Last Medication Dose Route Stop Time Status Admin Acetaminophen 1,000 MG Q6P PRN 04/25 2099 AC IV Albuterol Sulfate 3 ML Q6 PRN 04/25 2114 AC INH Albuterol Sulfate 3 ML ONCE ONE 04/25 1944 DC 04/25 INH 04/25 1945 165 Azithromycin 500 MG 2100 04/26 2099 AC Dextrose/Water 250 ML IV Azithromycin 500 MG DAILY 04/25 2100 DC Dextrose/Water 250 ML IV Azithromycin 500 MG ONCE ONE 04/25 2044 DC 04/25 Dextrose/Water 250 ML IV 04/25 2144 2134 Ceftriaxone Sodium 1,000 MG ONCE ONE 04/25 2014 CAN IV 04/26 2015 Enoxaparin Sodium 40 MG DAILY 04/26 1000 AC SC Furosemide 40 MG BID 04/26 1000 AC IV Furosemide 40 MG TID 04/250 DC IV Furosemide 0 .STK-MED ONE 04/25 1934 DC IV Furosemide 40 MG ONCE ONE 04/25 1914 DC 04/25 IV PUSH 04/26 1915 193 Ipratropium [place] 2.5 ML Q6 04/25 2359 AC INH Ipratropium [place] 2.5 ML ONCE ONE 04/25 1945 DC 04/25 INH 04/25 194 1650 Methylprednisolone 40 MG Q6 04/25 235 AC 04/26 IV 0526 Methylprednisolone 0 .STK-MED ONE 04/25 2002 DC .ROUTE Methylprednisolone 125 MG ONCE ONE 04/25 1944 DC 04/25 IV 04/25 Past History Travel History Traveled to [place] past 21 day No Medical History Blood Transfusion Hx: No Neurological: NONE EENT: TUBES IN EARS CHILD Cardiovascular: chronic venous insuff, hypertension, myocardial infarction, HYPERLIPIDEMIA HIGH CHOLESTEROL right heart failure diastolic heart failure cor pulmonale Respiratory: COPD, obstructive sleep apnea Gastrointestinal: NONE Hepatic: NONE Renal: NONE Musculoskeletal: MULTIPLE BROKEN BONES IN PAST NECK DISCECTOMY Psychiatric: NONE Endocrine: diabetes, hypothyroidism Blood Disorders: NONE Cancer(s): liver cancer LABORATORY TECH/Reproductive: TESTICLE INFECTION Other Medical Hx: morbid obesity Lymphedema both lower extremities Surgical History Surgical History: STATUS POST BARIATRIC SURGERY Family History Relations & Conditions If Any: FATHER Coronary artery disease FH: diabetes mellitus FATHER FHx: diabetes mellitus FHx: heart disease MOTHER FH: breast cancer FH: lung cancer Psychosocial History Where Do You Live? Home Services at Home: None Smoking Status: Current Everyday Smoker Exam & Diagnostic Data Vital Signs and I&O Vital Signs Date Time Temp Pulse Resp B/P B/P Pulse O2 O2 Flow FiO2 Mean Ox Delivery Rate 04/26 0821 70 92 04/26 0800 97.8 68 30 110/60 93 BIPAP 55% 04/26 0800 91 BIPAP 55% 04/26 0614 67 87 04/26 0400 86 BIPAP 55% 04/26 0211 67 88 04/26 0015 68 90 04/26 0000 89 BIPAP 45% 04/26 0000 97.8 66 30 110/68 89 BIPAP 45% 04/25 2213 88 BIPAP 40% 04/25 2213 97.6 78 33 108/00 88 BIPAP 40% 04/25 2156 75 30 123/70 87 BIPAP 40% 04/25 2053 98.3 74 20 122/66 93 BIPAP 40% 04/25 1839 97.8 74 28 112/59 90 BIPAP 40% 04/25 1736 90 93 04/25 1701 92 Nasal 4.0L Cannula 04/25 1656 22 92 Nasal 4.0L Cannula 04/25 1650 92 Nasal 4.0L Cannula 04/25 1646 98.1 88 22 116/59 85 Room Air Intake & Output 04/26 1600 04/26 0800 04/26 0000 04/25 1600 04/25 0800 04/25 0000 Intake Total 24 250 Output Total 240 200 Balance -216 50 Intake, IV 24 250 Intake, Oral 0 Number 0 Bowel Movements Output, Urine 240 200 Patient 373 lb 378 lb Weight Weight Bed scale Bed scale Measurement Method Physical Exam: General Appearance Somnolent, lethargic, minimally responsive, obese Skin normal HEENT Atraumatic, PERRLA, EOMI, Mucous Membr. moist/pink Neck Supple, No JVP elevation appreciated, carotids normal bilaterally Cardiovascular Regular Rate, distant S1, S2, no audible murmurs Lungs markedly decreased airflow bilaterally. Abdomen Normal Bowel Sounds, Soft, No Tenderness, No Hepatospenomegaly, No Masses Neurological Somnolent, AAOx0, follows simple commands Extremities No Clubbing, No Cyanosis, No Edema, Normal Pulses, No Tenderness/ Swelling, 4+ bilateral lower extremity swelling with severe scaling, no open wounds Vascular diminished distal lower extremity pulses bilaterally Labs/Donato Results: Laboratory Tests 04/26 04/26 04/26 0625 0530 0500 Blood Gas pH (7.35 - 7.45 PH) 7.38 pCO2 (35 - 45 TORR) 59 H pO2 (80 - 100 TORR) 60 L HCO3 (21 - 28 MEQ/L) 34 H ABG O2 Sat (Measured) (>96.0 %) 90.0 L P-50 (Temp Corrected) N Carboxyhemoglobin (1.5 - 5.0 %) 4.3 O2 Concentration % .55 Respiration Rate (BPM) 30 O2 Delivery Method BIPAP Vent Mode ST Expiratory Pressure (CM H2O P) 8 Inspiratory Pressure (CM H2O P) 28 Chemistry Troponin I Cancelled TSH (0.270 - 4.200 uIU/mL) 0.949 Free T4 (0.64 - 1.79 ng/dL) 1.12 Miscellaneous Phlebotomy Draw Site LEFT RADIAL 04/26 04/26 0230 0100 Blood Gas pH (7.35 - 7.45 PH) 7.34 L pCO2 (35 - 45 TORR) 67 *H pO2 (80 - 100 TORR) 58 L HCO3 (21 - 28 MEQ/L) 35 H ABG O2 Sat (Measured) (>96.0 %) 89.0 L P-50 (Temp Corrected) N Carboxyhemoglobin (1.5 - 5.0 %) 7.1 *H O2 Concentration % .50 Respiration Rate (BPM) 30 O2 Delivery Method BIPAP Vent Mode ST Expiratory Pressure (CM H2O P) 8 Inspiratory Pressure (CM H2O P) 28 Chemistry Sodium (137 - 145 mmol/L) 136 L Potassium (3.5 - 5.1 mmol/L) 5.0 Chloride (98 - 107 mmol/L) 90 L Carbon Dioxide (22 - 30 mmol/L) 36 H Anion Gap (5 - 16) 10 BUN (9 - 20 mg/dL) 18 Creatinine (0.7 - 1.2 mg/dL) 0.7 Estimated GFR (>60 ml/min) > 60 Glucose (65 - 99 mg/dL) 206 H Calcium (8.4 - 10.2 mg/dL) 8.3 L Phosphorus (2.5 - 4.5 mg/dL) 4.3 Magnesium (1.6 - 2.3 mg/dL) 2.0 Total Bilirubin (0.2 - 1.3 mg/dL) 0.6 AST (17 - 59 U/L) 22 ALT (21 - 72 U/L) 44 Troponin I (<0.11 ng/ml) < 0.01 Albumin (3.5 - 5.0 g/dL) 3.6 Hematology CBC w Diff MAN DIFF ORDERED WBC (4.8 - 10.8 /CUMM) 7.8 RBC (4.70 - 6.10 /CUMM) 5.53 Hgb (14.0 - 18.0 G/DL) 16.7 Hct (42 - 52 %) 52.2 H MCV (80.0 - 94.0 FL) 94.4 H MCH (27.0 - 31.0 PG) 30.1 MCHC (33.0 - 37.0 G/DL) 32.0 L RDW (11.5 - 14.5 %) 15.9 H Plt Count (130 - 400 /CUMM) 177 MPV (7.4 - 10.4 FL) 7.4 Gran % (42.2 - 75.2 %) 92.6 H Lymphocytes % (20.5 - 51.1 %) 6.9 L Monocytes % (1.7 - 9.3 %) 0.5 L Eosinophils % (0 - 5 %) 0 Basophils % (0.0 - 2.0 %) 0 Absolute Granulocytes (1.4 - 6.5 /CUMM) 7.2 H Segmented Neutrophils (42.2 - 75.2 %) 82 H Band Neutrophils (0.0 - 5.0 %) 4 Absolute Lymphocytes (1.2 - 3.4 /CUMM) 0.5 L Lymphocytes (20.5 - 51.1 %) 10 L Monocytes (1.7 - 9.3 %) 4 Absolute Monocytes (0.10 - 0.60 /CUMM) 0 L Absolute Eosinophils (0.0 - 0.7 /CUMM) 0 Absolute Basophils (0.0 - 0.2 /CUMM) 0 Platelet Estimate (ADEQUATE) ADEQUATE Polychromasia 1+ Anisocytosis 1+ Stomatocytes 1+ Elliptocytes FEW Miscellaneous Phlebotomy Draw Site LEFT RADIAL 04/25 2020 Blood Gas pH (7.35 - 7.45 PH) 7.36 pCO2 (35 - 45 TORR) 62 *H pO2 (80 - 100 TORR) 61 L HCO3 (21 - 28 MEQ/L) 34 H ABG O2 Sat (Measured) (>96.0 %) 82.0 L P-50 (Temp Corrected) N Carboxyhemoglobin (1.5 - 5.0 %) 9.0 *H O2 Concentration % 40% Temperature (97.0 - 100.0 FARH) 98.1 Respiration Rate (BPM) 30 O2 Delivery Method BIPAP Vent Mode ST Expiratory Pressure (CM H2O P) 8 Inspiratory Pressure (CM H2O P) 26 Miscellaneous Phlebotomy Draw Site RIGHT RADIAL Toxicology Urine Opiates Screen (>2000 NG/ML) < 100 Methadone Screen (>300 NG/ML) < 40 Barbiturate Screen (>200 NG/ML) < 60 Ur Phencyclidine Scrn (>25 NG/ML) < 6.00 Amphetamines Screen (>1000 NG/ML) < 100 U Benzodiazepines Scrn (>200 NG/ML) < 85 Urine Cocaine Screen (>300 NG/ML) < 50 Urine Cannabis Screen (>50 NG/ML) < 5.00 Urines Urine Color (YEL,AMB,STR) YEL Urine Clarity (CLEAR) CLEAR Urine pH (5.0 - 8.0) 6.0 Ur Specific [place] (1.001 - 1.035) 1.020 Urine Protein (NEG,<30 MG/DL) NEG Urine Ketones (NEG) NEG Urine Nitrite (NEG) NEG Urine Bilirubin (NEG) NEG Urine Urobilinogen (0.1 - 1.0 EU/dl) 0.2 Ur Leukocyte Esterase (NEG) NEG Ur Microscopic EXAM NOT REQUIRED Urine Hemoglobin (NEG) NEG Urine Glucose (N MG/DL) NEG 04/25 04/25 1830 1700 Blood Gas pH (7.35 - 7.45 PH) 7.36 7.34 L pCO2 (35 - 45 TORR) 62 *H 63 *H pO2 (80 - 100 TORR) 62 L 66 L HCO3 (21 - 28 MEQ/L) 34 H 33 H ABG O2 Sat (Measured) (>96.0 %) 82.0 L 82.0 L P-50 (Temp Corrected) N N Carboxyhemoglobin (1.5 - 5.0 %) 10.0 *H 10.9 *H O2 Concentration % 40% 4L Temperature (97.0 - 100.0 FARH) 98.1 98.1 Respiration Rate (BPM) 28 O2 Delivery Method BIPAP NC Vent Mode ST Expiratory Pressure (CM H2O P) 8 Inspiratory Pressure (CM H2O P) 24 Miscellaneous Phlebotomy Draw Site RIGHT RADIAL RIGHT RADIAL 04/25 1654 Chemistry Sodium (137 - 145 mmol/L) 135 L Potassium (3.5 - 5.1 mmol/L) 3.8 Chloride (98 - 107 mmol/L) 89 L Carbon Dioxide (22 - 30 mmol/L) 39 H Anion Gap (5 - 16) 7 BUN (9 - 20 mg/dL) 17 Creatinine (0.7 - 1.2 mg/dL) 0.7 Estimated GFR (>60 ml/min) > 60 BUN/Creatinine Ratio (7 - 25 %) 24.3 Glucose (65 - 99 mg/dL) 166 H Calcium (8.4 - 10.2 mg/dL) 8.4 Total Bilirubin (0.2 - 1.3 mg/dL) 0.6 AST (17 - 59 U/L) 19 ALT (21 - 72 U/L) 38 Alkaline Phosphatase (< 127 U/L) 83 Troponin I (<0.11 ng/ml) < 0.01 [id number] Pept (<125 pg/mL) 158 H Total Protein (6.3 - 8.2 g/dL) 6.7 Albumin (3.5 - 5.0 g/dL) 3.4 L Globulin (1.9 - 4.2 gm/dL) 3.3 Albumin/Globulin Ratio (1.1 - 2.2 %) 1.0 L Coagulation PT (9.4 - 12.5 SEC) 11.8 INR (0.90 - 1.17) 1.08 D-Dimer High Sensitivty (0 - 243 ng/ml) < 200 Hematology CBC w Diff NO MAN DIFF REQ WBC (4.8 - 10.8 /CUMM) 8.0 RBC (4.70 - 6.10 /CUMM) 5.37 Hgb (14.0 - 18.0 G/DL) 16.3 Hct (42 - 52 %) 50.6 MCV (80.0 - 94.0 FL) 94.3 H MCH (27.0 - 31.0 PG) 30.4 MCHC (33.0 - 37.0 G/DL) 32.3 L RDW (11.5 - 14.5 %) 16.8 H Plt Count (130 - 400 /CUMM) 220 MPV (7.4 - 10.4 FL) 6.7 L Gran % (42.2 - 75.2 %) 67.1 Lymphocytes % (20.5 - 51.1 %) 22.2 Monocytes % (1.7 - 9.3 %) 8.3 Eosinophils % (0 - 5 %) 1.6 Basophils % (0.0 - 2.0 %) 0.8 Absolute Granulocytes (1.4 - 6.5 /CUMM) 5.3 Absolute Lymphocytes (1.2 - 3.4 /CUMM) 1.8 Absolute Monocytes (0.10 - 0.60 /CUMM) 0.7 H Absolute Eosinophils (0.0 - 0.7 /CUMM) 0.1 Absolute Basophils (0.0 - 0.2 /CUMM) 0.1 Assessment/Plan Assessment/Plan Assessment: 1. Acute on chronic hypoxic/hypercapnic respiratory failure 2. COPD exacerbation 3. Reported history of cor pulmonale 4. History of prior myocardial infarction 5. Obstructive sleep apnea, noncompliant with CPAP 6. Hypothyroidism 7. Hypertension 8. Hyperlipidemia 9. Diabetes 10. chronic lower extremity edema/lymphedema 11. Obesity Recommendations: -Admission to ICU -Maintained on campus monitor -Check troponins 2 -ECG today and again tomorrow -Continue aggressive respiratory therapy as per pulmonary -Echocardiogram pending -continue IV antibiotics pending cultures -Continue IV Lasix with strict monitoring of intake, outputs, daily weights. -Full laboratory evaluation pending -Final plans after the above and after echocardiogram reviewed Consult Acknowledgment - Thank you for your consult request.
--- NOTE | 2017-04-26 13:10 | ULTRASOUND REPORT ---
EXAMINATION: US TRIPLEX OF LOWER EXTREMITIES, BILATERAL CLINICAL INFORMATION: Hypoxic respiratory failure COMPARISON: 05/17/2014 TECHNIQUE: Color-flow triplex imaging with spectral analysis and compression Doppler were performed on the lower extremities. FINDINGS: Respiratory variation, normal compression and augmented flow are noted throughout the lower extremities. The visualized common femoral vein, superficial femoral vein, profunda femoral vein, popliteal vein and midcalf peroneal and posterior tibial venous segments show no evidence of deep venous thrombosis. There is no Finch's cyst. IMPRESSION: Normal triplex scan without evidence of deep venous thrombosis involving the lower extremities.
--- NOTE | 2017-04-26 14:50 | RADIOLOGY REPORT ---
EXAMINATION: XR PORTABLE CHEST CLINICAL INFORMATION: Repeat radiograph. Acute on chronic hypoxic respiratory failure. Now on BiPAP. COMPARISON: 04/25/2017 TECHNIQUE: AP portable upright view of the chest FINDINGS: Cardiac silhouette is within normal limits. Pulmonary vasculature is also normal appearance, improved from prior. No focal consolidation, pneumothorax, or pleural effusion. Slight blunting of the lateral costophrenic sulci is likely due to pleural parenchymal scarring. There is degenerative spondylosis in the thoracic spine. Degenerative arthritis is present in the AC joint. IMPRESSION: No acute pulmonary findings
--- NOTE | 2017-04-26 15:37 | ECHOCARDIOGRAM REPORT ---
SHERRILL FREEMAN Age: 57 : 1960 Gender: M Exam Date: 04/26/2017 09:19 Exam Location: [facility] Ht (in): 68 Wt (lb): 377 BSA: 2.97 BP: 137 / 81 Ordering Physician: Percy Camacho MD Referring Physician: Percy Camacho MD Technologist: Khoi Reilly PETRA Room Number: Indications: HEART FAILURE Rhythm: Sinus Technical Quality: Fair, Technically difficult study FINDINGS Left Ventricle Normal size left ventricle. Left ventricular wall thickness increased. Normal left ventricular ejection fraction estimated at 60-65%. Right Ventricle Right ventricle not well visualized. Right Atrium Right atrium not well visualized. Left Atrium Left atrial size at the upper limits of normal. Mitral Valve Mitral valve thickened. Aortic Valve Diffuse thickening (sclerosis) of the aortic valve cusps without reduced excursion. No aortic stenosis. No aortic regurgitation. Tricuspid Valve Tricuspid valve not well visualized, grossly normal. Pulmonic Valve Pulmonic valve not well visualized. Pericardium Minimal pericardial effusion (normal variant). Great Vessels Normal size aortic root and proximal ascending aorta. CONCLUSIONS 1. This was a technically difficult and limited examination due to the patient's body habitus and clinical status. 2. Aortic sclerosis is present with no valvular stenosis or insufficiency 3. Mitral leaflet thickening is present with no evidence of valvular stenosis or prolapse. 4. A physiologic pericardial effusion is present which is hemodynamically insignificant 5. The left ventricular chamber size is normal mild to moderate concentric hypertrophy and a normal ejection fraction . Accurate wall motion assessment was not possible due to the quality of the images obtained. Mild diastolic dysfunction is present. 6. The right heart structures were not well assessed. The RV systolic pressure could not be assessed on this examination. 7. Dilatation of the IVC is present. Joya Del Rio M.D. (Electronically Signed) Final Date: 26 April 2017 15:36 MEASUREMENTS (Male / Female) Normal Values 2D ECHO LV Diastolic Diameter PLAX 5.3 cm 4.2 - 5.9 / 3.9 - 5.3 cm LV Systolic Diameter PLAX 3.2 cm 2.1 - 4.0 cm LV Fractional Shortening PLAX 39.6 % 25 - 46 % LV Ejection Fraction 2D Teich 69.7 % IVS Diastolic Thickness 1.6 cm LVPW Diastolic Thickness 1.4 cm LV Relative Wall Thickness 0.6 RV Internal Dim ED PLAX 2.7 cm 1.9 - 3.8 cm LVOT Diameter 2.0 cm LA Systolic Diameter LX 3.8 cm 3.0 - 4.0 / 2.7 - 3.8 cm Ascending Aorta Diameter 3.1 cm DOPPLER AV Peak Velocity 157.0 cm/s AV Peak Gradient 9.9 mmHg AV Mean Velocity 107.0 cm/s AV Mean Gradient 5.0 mmHg AV Velocity Time Integral 38.0 cm LVOT Peak Velocity 105.0 cm/s LVOT Peak Gradient 4.4 mmHg LVOT Mean Velocity 69.1 cm/s LVOT Mean Gradient 2.0 mmHg LVOT Velocity Time Integral 26.9 cm LVOT Stroke Volume 84.5 cm AV Area Cont Eq vti 2.2 cm AV Area Cont Eq pk 2.1 cm MV Peak Velocity 121.0 cm/s MV Peak Gradient 5.9 mmHg MV Mean Velocity 72.1 cm/s MV Mean Gradient 2.0 mmHg Mitral E Point Velocity 98.2 cm/s Mitral A Point Velocity 115.0 cm/s Mitral E to A Ratio 0.9 MV PHT Velocity 125.0 cm/s MV Deceleration [place] 298.0 cm/s MV Pressure Half Time 125.8 ms MV Area PHT 1.7 cm MV Deceleration Time 401.0 ms PV Peak Velocity 99.3 cm/s PV Peak Gradient 3.9 mmHg PV Mean Velocity 69.8 cm/s PV Mean Gradient 2.0 mmHg PV Velocity Time Integral 20.8 cm LV E' Lateral Velocity 8.3 cm/s Mitral E to LV E' Lateral Ratio 11.8 LV E' Septal Velocity 5.6 cm/s Mitral E to LV E' Septal Ratio 17.7
[2017-04-26 16:00] VITALS: BP 104/60; BP 114/70
[2017-04-26 22:00] VITALS: BP 102/60
[2017-04-27] VITALS: BP 100/70
[2017-04-27 05:20] LABS: ABSOLUTE BASOPHIL COUNT 0 /CUMM (0.0-0.2); ABSOLUTE EOSINOPHIL COUNT 0 /CUMM (0.0-0.7); ABSOLUTE GRANULOCYTE CT 8.8 /CUMM (1.4-6.5); ABSOLUTE LYMPH COUNT 1.6 /CUMM (1.2-3.4); ABSOLUTE MONOCYTE COUNT 0.9 /CUMM (0.10-0.60); BASOPHIL % 0.3 % (0.0-2.0); EOSINOPHIL % 0.3 % (0-5); GRANULOCYTE % 77.6 % (42.2-75.2); HEMATOCRIT 50.5 % (42-52); MEAN CORPUSCULAR HGB 29.9 PG (27.0-31.0); MEAN CORPUSCULAR HGB CONC 31.9 G/DL (33.0-37.0); MEAN CORPUSCULAR VOLUME 93.8 FL (80.0-94.0); MEAN PLATELET VOLUME 7.4 FL (7.4-10.4); PLATELET COUNT 208 /CUMM (130-400); RBC DISTRIBUTION WIDTH 16.5 % (11.5-14.5); RED BLOOD CELL CT 5.38 /CUMM (4.70-6.10); WHITE BLOOD CELL COUNT 11.3 /CUMM (4.8-10.8)
--- NOTE | 2017-04-27 07:34 | PN- Resident CRCU ---
Subjective HPI/CRCU Issues: Patient in the ICU for management of acute on chronic hypoxic hypercarbic respiratory failure, now improving. I followed up and examined the patient today. He was on BiPAP this morning, and later switched to nasal cannula, not in distress, doesn't have any complaints, and did not have any fever or chills last night. He is still coughing which is better than yesterday. VSS. Objective Vital Signs & I&O Last 8 Hrs of Vitals and I&O: Vital Signs Date Time Temp Pulse Resp B/P B/P Pulse O2 O2 Flow FiO2 Mean Ox Delivery Rate 04/27 0800 Nasal 6.0L Cannula 04/27 0800 97.4 64 20 102/68 90 Nasal 6.0L Cannula 04/27 0759 69 89 04/27 0537 67 90 04/27 0400 92 BIPAP 55% 04/27 0319 62 91 04/27 0050 63 89 04/27 0000 96.9 66 24 100/70 92 BIPAP 55% 04/26 2244 77 95 04/26 2200 97.6 91 24 102/60 90 Nasal 6.0L Cannula 04/26 2000 Nasal 6.0L Cannula 04/26 1659 91 Nasal 6.0L Cannula 04/26 1600 97.3 74 20 104/60 90 Nasal 5.0L Cannula 04/26 1600 91 Nasal 5.0L Cannula 04/26 1404 Nasal 5.0L Cannula Exam General Appearance: no apparent distress, alert, awake, comfortable, morbidly obese, on NC Other Physical Findings: Skin Rough, DRY SKIN, No Rashes, No Breakdown, No Significant Lesion HEENT Atraumatic, PERRLA, EOMI, Mucous Membr. moist/pink Neck Supple, No JVD Cardiovascular Regular Rate, Normal S1, Normal S2, No Murmurs Lungs b/l wheezing heard, no crackles Abdomen Normal Bowel Sounds, Soft, No Tenderness Neurological grossly intact Extremities No Clubbing, No Cyanosis, Normal Pulses, No Tenderness/Swelling, 4+ bilateral lower extremity swelling with severe scaling, no open wounds Vascular Normal Pulses, Pulses Symmetrical Current Medications: Current Medications Sig/Teo Start time Last Medication Dose Route Stop Time Status Admin Acetaminophen 1,000 MG Q6P PRN 04/25 2100 AC IV Albuterol Sulfate 3 ML TID 04/26 1600 AC 04/27 INH 1323 Albuterol Sulfate 3 ML Q6 PRN 04/25 2115 DC INH Azithromycin 500 MG DAILY 04/27 1115 AC 04/27 PO 1314 Azithromycin 500 MG 2100 04/26 2100 DC 04/26 Dextrose/Water 250 ML IV 2054 Enoxaparin Sodium 40 MG DAILY 04/26 1000 AC 04/27 SC 0934 Furosemide 60 MG BID 04/27 2200 AC IV Furosemide 40 MG BID 04/26 1000 DC 04/27 IV 0934 Insulin Aspart 0 TIDAC 04/26 1700 AC 04/26 SC 1633 Insulin Human Regular 0 Q6 04/26 1200 DC 04/26 SC 1203 Ipratropium [place] 2.5 ML TID 04/26 1600 AC 04/27 INH 1323 Ipratropium [place] 2.5 ML Q6 04/25 2359 DC INH Metformin HCl 500 MG 0800,1700 04/27 1700 AC PO Methylprednisolone 40 MG DAILY 04/27 1000 DC 04/27 IV 0934 Ondansetron HCl 4 MG Q6P PRN 04/26 1545 AC IV Potassium Chloride 40 MEQ BID 04/27 2200 AC PO Potassium Chloride 20 MEQ BID 04/26 2200 DC 04/27 PO 0934 Prednisone 30 MG DAILY 04/28 1000 AC PO Sitagliptin Phosphate 100 MG DAILY 04/27 1112 AC 04/27 PO 1315 Tiotropium [place] 1 PUF DAILY 04/27 1115 AC 04/27 INH 1315 Impression/Plan Impression/Problem List Impression: 57-year-old male with past history of COPD, obstructive sleep apnea noncompliant with CPAP, cor pulmonale, [place], hypertension, hyperlipidemia, diabetes, hypothyroidism, gastric bypass surgery, chronic lymphedema presented to the emergency department with shortness of breath and cough. He is being treated in the ICU for the following issues: #Acute on chronic hypoxic hypercarbic respiratory failure, secondary to COPD exacerbation, acute bronchitis Patient's clinical picture, lab values, and a fairly benign chest x-ray is suggestive of acute bronchitis that exacerbated his COPD and landed up in acute respiratory failure as shown by the ABG. He received BiPAP treatments yesterday and this morning, and is now saturating well on nasal cannula. Lower extremity Dopplers were negative for DVT. * Will continue transfer patient to telemetry floor for continous O2 monitoring * Continue azithromycin, switched to PO today D3 total * Continue steroid, changed to PO to wean in five days * Continue TRC/nebs * Increased IV Lasix 60 mg BID * Follow Sputum culture * Shane Talbot MD consulting, and following his recommendations #Diabetes mellitus Patient's previous HbA1c levels were consistently high but although the patient had not accepted the diagnosis yet, according to the discussions with the patient himself and his PCP Orion Nicole MD. We had a conversation about the condition yesterday at length, and he agreed to continue diabetes care and would further follow-up with his PCP. * Diabetic diet, insulin sliding scale/low-dose as he is Insulin naive, and regular accuchecks. * januvia and Metformin started today. #Cardiology recs: Followed troponin x2, EKG to rule out ACS, and continuing diuresis. Echo results were limited by body habitus, but showed LV 60-65%, with physiologic pericardial effusion, and mild diastolic dysfunction was noted among other findings. #Patient's TFT is normal and I also checked with his PCP and his pharmacy yesterday to confirm that he does not take any Levothyroxine, nor had any hypothyroidism anytime in the past. #Diet: Initially NPO, started CC2 diet yesterday afternoon after bedside swallow screening done by me #DVT ppx:SQ Lovenox #Code status: Full code Problem List: 1. COPD (chronic obstructive pulmonary disease) 2. Hypercapnic respiratory failure 3. Diabetes mellitus Pain Ratin Tomorrow's Labs & Rationales: CBC, BEP Plan DVT/Prophylaxis: pharmacological
[2017-04-27 08:00] VITALS: BP 102/68
--- NOTE | 2017-04-27 09:36 | PN- CRCU ---
Subjective HPI/Critical Care Issues: DOing better today Sitting and eating in bed Does say that he has to urinate all night as he takes bedtime lasix and does not use cpap No other complaints Objective Current Medications: Current Medications Sig/Teo Start time Last Medication Dose Route Stop Time Status Admin Acetaminophen 1,000 MG Q6P PRN 04/25 2100 AC IV Albuterol Sulfate 3 ML TID 04/26 1600 AC 04/27 INH 0755 Albuterol Sulfate 3 ML Q6 PRN 04/25 2115 DC INH Azithromycin 500 MG 2100 04/26 2100 AC 04/26 Dextrose/Water 250 ML IV 2054 Azithromycin 500 MG DAILY 04/25 2100 DC Dextrose/Water 250 ML IV Enoxaparin Sodium 40 MG DAILY 04/26 1000 AC 04/26 SC 0949 Furosemide 40 MG BID 04/26 1000 AC 04/26 IV 2101 Insulin Aspart 0 TIDAC 04/26 1700 AC 04/26 SC 1633 Insulin Human Regular 0 Q6 04/26 1200 DC 04/26 SC 1203 Ipratropium [place] 2.5 ML TID 04/26 1600 AC 04/27 INH 0755 Ipratropium [place] 2.5 ML Q6 04/25 2359 DC INH Methylprednisolone 40 MG DAILY 04/27 1000 AC IV Methylprednisolone 40 MG Q6 04/25 2359 DC 04/26 IV 0526 Ondansetron HCl 4 MG Q6P PRN 04/26 1545 AC IV Potassium Chloride 20 MEQ BID 04/26 2199 AC 04/26 PO 2101 Vital Signs & I&O Last 24 Hrs of Vitals and I&O: Vital Signs Date Time Temp Pulse Resp B/P B/P Pulse O2 O2 Flow FiO2 Mean Ox Delivery Rate 04/27 0800 Nasal 6.0L Cannula 04/27 0800 97.4 64 20 102/68 90 Nasal 6.0L Cannula 04/27 0759 69 89 04/27 0537 67 90 04/27 0400 92 BIPAP 55% 04/27 0319 62 91 04/27 0050 63 89 04/27 0000 96.9 66 24 100/70 92 BIPAP 55% 04/26 2244 77 95 04/26 2199 97.6 91 24 102/60 90 Nasal 6.0L Cannula 04/27 1999 Nasal 6.0L Cannula 04/26 1659 91 Nasal 6.0L Cannula 04/26 1600 97.3 74 20 104/60 90 Nasal 5.0L Cannula 04/26 1600 91 Nasal 5.0L Cannula 04/26 1404 Nasal 5.0L Cannula 04/26 1200 96 BIPAP 55% 04/26 1148 68 93 Intake & Output 04/27 0800 04/27 0000 Intake Total 100 630 Output Total 530 1050 Balance -430 -420 Intake, Oral 100 630 Output, Urine 530 1050 Patient 376 lb 378 lb Weight Laboratory Tests 04/27 04/26 04/26 0445 1815 0625 Blood Gas pH (7.35 - 7.45 PH) 7.38 pCO2 (35 - 45 TORR) 59 H pO2 (80 - 100 TORR) 60 L HCO3 (21 - 28 MEQ/L) 34 H ABG O2 Sat (Measured) (>96.0 %) 90.0 L P-50 (Temp Corrected) N Carboxyhemoglobin (1.5 - 5.0 %) 4.3 O2 Concentration % .55 Respiration Rate (BPM) 30 O2 Delivery Method BIPAP Vent Mode ST Expiratory Pressure (CM H2O P) 8 Inspiratory Pressure (CM H2O P) 28 Chemistry Sodium (137 - 145 mmol/L) 137 135 L Potassium (3.5 - 5.1 mmol/L) 4.1 4.2 Chloride (98 - 107 mmol/L) 90 L 90 L Carbon Dioxide (22 - 30 mmol/L) 39 H 37 H Anion Gap (5 - 16) 8 9 BUN (9 - 20 mg/dL) 29 H 25 H Creatinine (0.7 - 1.2 mg/dL) 0.9 1.0 Estimated GFR (>60 ml/min) > 60 > 60 Glucose (65 - 99 mg/dL) 162 H 181 H Calcium (8.4 - 10.2 mg/dL) 8.3 L 8.4 Phosphorus (2.5 - 4.5 mg/dL) 4.3 3.8 Magnesium (1.6 - 2.3 mg/dL) 2.1 1.9 Total Bilirubin (0.2 - 1.3 mg/dL) 0.8 0.6 AST (17 - 59 U/L) 17 18 ALT (21 - 72 U/L) 33 35 Albumin (3.5 - 5.0 g/dL) 3.4 L 3.5 Hematology CBC w Diff NO MAN DIFF REQ WBC (4.8 - 10.8 /CUMM) 11.3 H RBC (4.70 - 6.10 /CUMM) 5.38 Hgb (14.0 - 18.0 G/DL) 16.1 Hct (42 - 52 %) 50.5 MCV (80.0 - 94.0 FL) 93.8 MCH (27.0 - 31.0 PG) 29.9 MCHC (33.0 - 37.0 G/DL) 31.9 L RDW (11.5 - 14.5 %) 16.5 H Plt Count (130 - 400 /CUMM) 208 MPV (7.4 - 10.4 FL) 7.4 Gran % (42.2 - 75.2 %) 77.6 H Lymphocytes % (20.5 - 51.1 %) 13.8 L Monocytes % (1.7 - 9.3 %) 8.0 Eosinophils % (0 - 5 %) 0.3 Basophils % (0.0 - 2.0 %) 0.3 Absolute Granulocytes (1.4 - 6.5 /CUMM) 8.8 H Absolute Lymphocytes (1.2 - 3.4 /CUMM) 1.6 Absolute Monocytes (0.10 - 0.60 /CUMM) 0.9 H Absolute Eosinophils (0.0 - 0.7 /CUMM) 0 Absolute Basophils (0.0 - 0.2 /CUMM) 0 Miscellaneous Phlebotomy Draw Site LEFT RADIAL 04/26 04/26 04/26 0530 0500 0230 Chemistry Sodium (137 - 145 mmol/L) 136 L Potassium (3.5 - 5.1 mmol/L) 5.0 Chloride (98 - 107 mmol/L) 90 L Carbon Dioxide (22 - 30 mmol/L) 36 H Anion Gap (5 - 16) 10 BUN (9 - 20 mg/dL) 18 Creatinine (0.7 - 1.2 mg/dL) 0.7 Estimated GFR (>60 ml/min) > 60 Glucose (65 - 99 mg/dL) 206 H Hemoglobin A1c (4.2 - 5.8 %) 8.1 H Calcium (8.4 - 10.2 mg/dL) 8.3 L Phosphorus (2.5 - 4.5 mg/dL) 4.3 Magnesium (1.6 - 2.3 mg/dL) 2.0 Ferritin (17.9 - 464 ng/mL) 46.9 Total Bilirubin (0.2 - 1.3 mg/dL) 0.6 AST (17 - 59 U/L) 22 ALT (21 - 72 U/L) 44 Troponin I (<0.11 ng/ml) Cancelled < 0.01 Albumin (3.5 - 5.0 g/dL) 3.6 Vitamin B12 (239 - 931 pg/mL) 479 Folate (2.76 - 20.0 ng/mL) 12.6 TSH (0.270 - 4.200 uIU/mL) 0.949 Free T4 (0.64 - 1.79 ng/dL) 1.12 Hematology CBC w Diff MAN DIFF ORDERED WBC (4.8 - 10.8 /CUMM) 7.8 RBC (4.70 - 6.10 /CUMM) 5.53 Hgb (14.0 - 18.0 G/DL) 16.7 Hct (42 - 52 %) 52.2 H MCV (80.0 - 94.0 FL) 94.4 H MCH (27.0 - 31.0 PG) 30.1 MCHC (33.0 - 37.0 G/DL) 32.0 L RDW (11.5 - 14.5 %) 15.9 H Plt Count (130 - 400 /CUMM) 177 MPV (7.4 - 10.4 FL) 7.4 Gran % (42.2 - 75.2 %) 92.6 H Lymphocytes % (20.5 - 51.1 %) 6.9 L Monocytes % (1.7 - 9.3 %) 0.5 L Eosinophils % (0 - 5 %) 0 Basophils % (0.0 - 2.0 %) 0 Absolute Granulocytes (1.4 - 6.5 /CUMM) 7.2 H Segmented Neutrophils (42.2 - 75.2 %) 82 H Band Neutrophils (0.0 - 5.0 %) 4 Absolute Lymphocytes (1.2 - 3.4 /CUMM) 0.5 L Lymphocytes (20.5 - 51.1 %) 10 L Monocytes (1.7 - 9.3 %) 4 Absolute Monocytes (0.10 - 0.60 /CUMM) 0 L Absolute Eosinophils (0.0 - 0.7 /CUMM) 0 Absolute Basophils (0.0 - 0.2 /CUMM) 0 Platelet Estimate (ADEQUATE) ADEQUATE Polychromasia 1+ Anisocytosis 1+ Stomatocytes 1+ Elliptocytes FEW 04/26 04/25 0100 2100 Blood Gas pH (7.35 - 7.45 PH) 7.34 L pCO2 (35 - 45 TORR) 67 *H pO2 (80 - 100 TORR) 58 L HCO3 (21 - 28 MEQ/L) 35 H ABG O2 Sat (Measured) (>96.0 %) 89.0 L P-50 (Temp Corrected) N Carboxyhemoglobin (1.5 - 5.0 %) 7.1 *H O2 Concentration % .50 Respiration Rate (BPM) 30 O2 Delivery Method BIPAP Vent Mode ST Expiratory Pressure (CM H2O P) 8 Inspiratory Pressure (CM H2O P) 28 Miscellaneous Phlebotomy Draw Site LEFT RADIAL Toxicology Urine Opiates Screen (>2000 NG/ML) < 100 Methadone Screen (>300 NG/ML) < 40 Barbiturate Screen (>200 NG/ML) < 60 Ur Phencyclidine Scrn (>25 NG/ML) < 6.00 Amphetamines Screen (>1000 NG/ML) < 100 U Benzodiazepines Scrn (>200 NG/ML) < 85 Urine Cocaine Screen (>300 NG/ML) < 50 Urine Cannabis Screen (>50 NG/ML) < 5.00 Urines Urine Color (YEL,AMB,STR) YEL Urine Clarity (CLEAR) CLEAR Urine pH (5.0 - 8.0) 6.0 Ur Specific [place] (1.001 - 1.035) 1.020 Urine Protein (NEG,<30 MG/DL) NEG Urine Ketones (NEG) NEG Urine Nitrite (NEG) NEG Urine Bilirubin (NEG) NEG Urine Urobilinogen (0.1 - 1.0 EU/dl) 0.2 Ur Leukocyte Esterase (NEG) NEG Ur Microscopic EXAM NOT REQUIRED Urine Hemoglobin (NEG) NEG Urine Glucose (N MG/DL) NEG 04/25 04/25 04/25 2020 1830 1700 Blood Gas pH (7.35 - 7.45 PH) 7.36 7.36 7.34 L pCO2 (35 - 45 TORR) 62 *H 62 *H 63 *H pO2 (80 - 100 TORR) 61 L 62 L 66 L HCO3 (21 - 28 MEQ/L) 34 H 34 H 33 H ABG O2 Sat (Measured) (>96.0 %) 82.0 L 82.0 L 82.0 L P-50 (Temp Corrected) N N N Carboxyhemoglobin (1.5 - 5.0 %) 9.0 *H 10.0 *H 10.9 *H O2 Concentration % 40% 40% 4L Temperature (97.0 - 100.0 FARH) 98.1 98.1 98.1 Respiration Rate (BPM) 30 28 O2 Delivery Method BIPAP BIPAP NC Vent Mode ST ST Expiratory Pressure (CM H2O P) 8 8 Inspiratory Pressure (CM H2O P) 26 24 Miscellaneous Phlebotomy Draw Site RIGHT RADIAL RIGHT RADIAL RIGHT RADIAL 04/25 1654 Chemistry Sodium (137 - 145 mmol/L) 135 L Potassium (3.5 - 5.1 mmol/L) 3.8 Chloride (98 - 107 mmol/L) 89 L Carbon Dioxide (22 - 30 mmol/L) 39 H Anion Gap (5 - 16) 7 BUN (9 - 20 mg/dL) 17 Creatinine (0.7 - 1.2 mg/dL) 0.7 Estimated GFR (>60 ml/min) > 60 BUN/Creatinine Ratio (7 - 25 %) 24.3 Glucose (65 - 99 mg/dL) 166 H Calcium (8.4 - 10.2 mg/dL) 8.4 Total Bilirubin (0.2 - 1.3 mg/dL) 0.6 AST (17 - 59 U/L) 19 ALT (21 - 72 U/L) 38 Alkaline Phosphatase (< 127 U/L) 83 Troponin I (<0.11 ng/ml) < 0.01 Anf-F-Hospmfhtznn Pept (<125 pg/mL) 158 H Total Protein (6.3 - 8.2 g/dL) 6.7 Albumin (3.5 - 5.0 g/dL) 3.4 L Globulin (1.9 - 4.2 gm/dL) 3.3 Albumin/Globulin Ratio (1.1 - 2.2 %) 1.0 L Coagulation PT (9.4 - 12.5 SEC) 11.8 INR (0.90 - 1.17) 1.08 D-Dimer High Sensitivty (0 - 243 ng/ml) < 200 Hematology CBC w Diff NO MAN DIFF REQ WBC (4.8 - 10.8 /CUMM) 8.0 RBC (4.70 - 6.10 /CUMM) 5.37 Hgb (14.0 - 18.0 G/DL) 16.3 Hct (42 - 52 %) 50.6 MCV (80.0 - 94.0 FL) 94.3 H MCH (27.0 - 31.0 PG) 30.4 MCHC (33.0 - 37.0 G/DL) 32.3 L RDW (11.5 - 14.5 %) 16.8 H Plt Count (130 - 400 /CUMM) 220 MPV (7.4 - 10.4 FL) 6.7 L Gran % (42.2 - 75.2 %) 67.1 Lymphocytes % (20.5 - 51.1 %) 22.2 Monocytes % (1.7 - 9.3 %) 8.3 Eosinophils % (0 - 5 %) 1.6 Basophils % (0.0 - 2.0 %) 0.8 Absolute Granulocytes (1.4 - 6.5 /CUMM) 5.3 Absolute Lymphocytes (1.2 - 3.4 /CUMM) 1.8 Absolute Monocytes (0.10 - 0.60 /CUMM) 0.7 H Absolute Eosinophils (0.0 - 0.7 /CUMM) 0.1 Absolute Basophils (0.0 - 0.2 /CUMM) 0.1 Microbiology Date/Time Procedure - Status Source Growth 04/26 2219 Surveillance Culture - RECD UPPER RESP 04/26 2219 Surveillance Culture - RECD GI 04/25 2104 Respiratory Culture - CAN LOWER RESP Cancelled: SPECIMEN NOT RECEIVED IN LABORATORY 04/25 2104 Gram Stain - CAN LOWER RESP Cancelled: SPECIMEN NOT RECEIVED IN LABORATORY 04/25 2099 Urine Culture - RES URINE ROUT Impression/Plan Impression/Plan Impression/Plan: General Appearance Somnolent, on bipap and A/A/O x 3 Skin No Rashes, No Breakdown, No Significant Lesion Skin Temp/Moisture Exam: Warm/Dry Sepsis Skin Exam (color): Normal for Ethnicity HEENT Atraumatic, PERRLA, EOMI, Mucous Membr. moist/pink Neck Supple, No JVD Cardiovascular Regular Rate, Normal S1, Normal S2, No Murmurs Lungs Clear to Auscultation, Diminished airflow in all lung garcia with scattered rhonchi anteriorly, no wheezing or crackles Abdomen Normal Bowel Sounds, Soft, No Tenderness, No Hepatospenomegaly, No Masses Neurological Somnolent, AAOx0, follows simple commands Extremities No Clubbing, No Cyanosis, No Edema, Normal Pulses, No Tenderness/ Swelling, 4+ bilateral lower extremity swelling with severe scaling, no open wounds Vascular Normal Pulses, Pulses Symmetrical IMPRESSION This is a gentleman with severe morbid obesity with previous gastric sleeve surgery which had initially worked but now has put on sig weight, very severe obstructive sleep apnea with previous cor pulmonale right more than left heart dysfunction in the past, moderate COPD, significant smoking history more than [id number] smoker now smokes more than 1 packs a day, noncompliant with CPAP management, diabetes history, hypertension, hyperlipidemia, history of hypothyroidism, previous admission to this hospital for biventricular heart failure respiratory failure and cor pulmonale, chronic lymphedema of both legs, chronic dermatitis of his leg with lymphedema, previous history of recurrent cellulitis and lymphadenopathy in the groin now comes in with * Improving Acute on chronic Hypercarbic resp failure due to noncompliance with cpap * Improving Acute corpulmonale with rt heart failure * 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 packs a day smoker) * Sig copd with Acute bronchitis * Morbid obesity * Severe TAN and not compliant with cpap * DM and hypothryoid on meds at home * Chronic lymphedema of both lower ext REC/PLAN Cont Positive pressure vent at hs, change to cpap tonight and observe, cpap of 12 if chase Keep HOB up Cont lasix increase to 60 mg bid iv Potassium 40 meq po twice today and check potassium in am Change to po prednisone 30 mg in am and wean in 5 days Cont nebs atc start spiriva one puff daily Cont abx, change to po azithro FSG and sliding scale Get home meds Start metformin 500 bid Start januvia 100 daily Keep sat at 90 percent Cont lovenox Ok to the floor late today Pt counselled about his cpap use and wt loss and he understands risks and benefits of rx
[2017-04-27 15:48] VITALS: BP 102/66
--- NOTE | 2017-04-27 19:01 | PN- Cardiology ---
Subjective Subjective: Shortness of breath is improving. No chest pain. No palpitations. No diaphoresis. No lightheadedness or dizziness. No nausea or vomiting. Objective Vital Signs and I&Os Vital Signs Date Time Temp Pulse Resp B/P B/P Pulse O2 O2 Flow FiO2 Mean Ox Delivery Rate 04/27 1600 Nasal 6.0L Cannula 04/27 1548 98.4 20 20 102/66 94 Nasal 4.0L Cannula 04/27 1331 90 Nasal 6.0L Cannula 04/27 0800 Nasal 6.0L Cannula 04/27 0800 97.4 64 20 102/68 90 Nasal 6.0L Cannula 04/27 0759 69 89 04/27 0537 67 90 04/27 0400 92 BIPAP 55% 04/27 0319 62 91 04/27 0050 63 89 04/27 0000 96.9 66 24 100/70 92 BIPAP 55% 04/26 2244 77 95 04/26 2200 97.6 91 24 102/60 90 Nasal 6.0L Cannula 04/26 2000 Nasal 6.0L Cannula Intake & Output 04/27 1600 04/27 0800 04/27 0000 04/26 1600 04/26 0800 04/26 0000 Intake Total 1005 100 630 30 24 250 Output Total 9201 513 8051 650 240 200 Balance -395 -430 -420 -620 -216 50 Intake, IV 45 30 24 250 Intake, Oral 960 100 630 0 0 Number 2 0 0 Bowel Movements Output, Urine 1227 328 2496 650 240 200 Patient 376 lb 378 lb 373 lb 378 lb Weight Weight Bed scale Bed scale Measurement Method Physical Exam: Gen: NAD HEENT: normal Lungs: clear to auscultation, normal resp. effort Heart: RRR, S1, S2, no murmurs Abdomen: Soft, nontender, no masses Extremities: No clubbing, cyanosis, or edema. Neuro: Alert and oriented x 3, cranial nerves intact Current Medications: Current Medications Sig/Toe Start time Last Medication Dose Route Stop Time Status Admin Acetaminophen 1,000 MG Q6P PRN 04/25 2099 AC IV Albuterol Sulfate 3 ML TID 04/26 1600 AC 04/27 INH 1323 Azithromycin 500 MG DAILY 04/27 1115 AC 04/27 PO 1314 Azithromycin 500 MG 2100 04/26 2100 DC 04/26 Dextrose/Water 250 ML IV 2053 Enoxaparin Sodium 40 MG DAILY 04/26 1000 AC 04/27 SC 0934 Furosemide 60 MG BID 04/27 2200 AC IV Furosemide 40 MG BID 04/26 1000 DC 04/27 IV 0934 Insulin Aspart 0 TIDAC 04/26 1700 AC 04/26 SC 1633 Ipratropium [place] 2.5 ML TID 04/26 1600 AC 04/27 INH 1323 Metformin HCl 500 MG 0800,1700 04/27 1700 AC 04/27 PO 1751 Methylprednisolone 40 MG DAILY 04/27 1000 DC 04/27 IV 0934 Ondansetron HCl 4 MG Q6P PRN 04/26 1545 AC IV Potassium Chloride 40 MEQ BID 04/27 2199 AC PO Potassium Chloride 20 MEQ BID 04/26 2200 DC 04/27 PO 0934 Prednisone 30 MG DAILY 04/28 1000 AC PO Sitagliptin Phosphate 100 MG DAILY 04/27 1112 AC 04/27 PO 1315 Tiotropium [place] 1 PUF DAILY 04/27 1115 AC 04/27 INH 1315 Results Last 48 Hrs of Labs/Mics: Laboratory Tests 04/27/17 0445: Anion Gap 8, Estimated GFR > 60, Glucose 162 H, Calcium 8.3 L, Phosphorus 4.3, Magnesium 2.1, Total Bilirubin 0.8, AST 17, ALT 33, Albumin 3.4 L, CBC w Diff NO MAN DIFF REQ, RBC 5.38, MCV 93.8, MCH 29.9, MCHC 31.9 L, RDW 16.5 H, MPV 7.4, Gran % 77.6 H, Lymphocytes % 13.8 L, Monocytes % 8.0, Eosinophils % 0.3, Basophils % 0.3, Absolute Granulocytes 8.8 H, Absolute Lymphocytes 1.6, Absolute Monocytes 0.9 H, Absolute Eosinophils 0, Absolute Basophils 0 04/26/17 1815: Anion Gap 9, Estimated GFR > 60, Glucose 181 H, Calcium 8.4, Phosphorus 3.8, Magnesium 1.9, Total Bilirubin 0.6, AST 18, ALT 35, Albumin 3.5 04/26/17 0625: pH 7.38, pCO2 59 H, pO2 60 L, HCO3 34 H, ABG O2 Sat (Measured) 90.0 L, P-50 (Temp Corrected) N, Carboxyhemoglobin 4.3, O2 Concentration % .55, Respiration Rate 30, O2 Delivery Method BIPAP, Vent Mode ST, Expiratory Pressure 8, Inspiratory Pressure 28, Phlebotomy Draw Site LEFT RADIAL 04/26/17 0530: Ferritin 46.9, Vitamin B12 479, Folate 12.6, TSH 0.949, Free T4 1.12 04/26/17 0500: Troponin I Cancelled 04/26/17 0230: Anion Gap 10, Estimated GFR > 60, Glucose 206 H, Hemoglobin A1c 8.1 H, Calcium 8.3 L, Phosphorus 4.3, Magnesium 2.0, Total Bilirubin 0.6, AST 22, ALT 44, Troponin I < 0.01, Albumin 3.6, CBC w Diff MAN DIFF ORDERED, RBC 5.53, MCV 94.4 H, MCH 30.1, MCHC 32.0 L, RDW 15.9 H, MPV 7.4, Gran % 92.6 H, Lymphocytes % 6.9 L, Monocytes % 0.5 L, Eosinophils % 0, Basophils % 0, Absolute Granulocytes 7.2 H, Segmented Neutrophils 82 H, Band Neutrophils 4, Absolute Lymphocytes 0.5 L, Lymphocytes 10 L, Monocytes 4, Absolute Monocytes 0 L, Absolute Eosinophils 0, Absolute Basophils 0, Platelet Estimate ADEQUATE, Polychromasia 1+, Anisocytosis 1+, Stomatocytes 1+, Elliptocytes FEW 04/26/17 0100: pH 7.34 L, pCO2 67 *H, pO2 58 L, HCO3 35 H, ABG O2 Sat (Measured) 89.0 L, P- 50 (Temp Corrected) N, Carboxyhemoglobin 7.1 *H, O2 Concentration % .50, Respiration Rate 30, O2 Delivery Method BIPAP, Vent Mode ST, Expiratory Pressure 8, Inspiratory Pressure 28, Phlebotomy Draw Site LEFT RADIAL 04/25/17 2100: Urine Opiates Screen < 100, Methadone Screen < 40, Barbiturate Screen < 60, Ur Phencyclidine Scrn < 6.00, Amphetamines Screen < 100, U Benzodiazepines Scrn < 85, Urine Cocaine Screen < 50, Urine Cannabis Screen < 5.00, Urine Color YEL, Urine Clarity CLEAR, Urine pH 6.0, Ur Specific [place] 1.020, Urine Protein NEG, Urine Ketones NEG, Urine Nitrite NEG, Urine Bilirubin NEG, Urine Urobilinogen 0.2, Ur Leukocyte Esterase NEG, Ur Microscopic EXAM NOT REQUIRED, Urine Hemoglobin NEG, Urine Glucose NEG 04/25/17 2020: pH 7.36, pCO2 62 *H, pO2 61 L, HCO3 34 H, ABG O2 Sat (Measured) 82.0 L, P-50 (Temp Corrected) N, Carboxyhemoglobin 9.0 *H, O2 Concentration % 40%, Temperature 98.1, Respiration Rate 30, O2 Delivery Method BIPAP, Vent Mode ST, Expiratory Pressure 8, Inspiratory Pressure 26, Phlebotomy Draw Site RIGHT RADIAL Microbiology 04/26 2219 UPPER RESP: Surveillance Culture - COMP 04/26 2219 GI: Surveillance Culture - COMP 04/25 2099 URINE ROUT: Urine Culture - COMP Assessment/Plan Assessment/Plan Assessment: 1. Acute on chronic hypoxic/hypercapnic respiratory failure 2. COPD exacerbation 3. Reported history of cor pulmonale 4. History of prior myocardial infarction 5. Obstructive sleep apnea, noncompliant with CPAP 6. Hypothyroidism 7. Hypertension 8. Hyperlipidemia 9. Diabetes 10. chronic lower extremity edema/lymphedema 11. Obesity Plan: * Continue IV Lasix * Monitor input and output * Check basic metabolic profile daily Continue telemetry? Yes
[2017-04-27 22:14] VITALS: BP 126/78
[2017-04-28 05:52] VITALS: BP 104/68
[2017-04-28 08:06] LABS: ABSOLUTE BASOPHIL COUNT 0 /CUMM (0.0-0.2); ABSOLUTE EOSINOPHIL COUNT 0 /CUMM (0.0-0.7); ABSOLUTE GRANULOCYTE CT 6.6 /CUMM (1.4-6.5); ABSOLUTE LYMPH COUNT 2.2 /CUMM (1.2-3.4); ABSOLUTE MONOCYTE COUNT 0.9 /CUMM (0.10-0.60); BASOPHIL % 0.3 % (0.0-2.0); EOSINOPHIL % 0.5 % (0-5); GRANULOCYTE % 67.6 % (42.2-75.2); HEMATOCRIT 50.4 % (42-52); MEAN CORPUSCULAR HGB 30.3 PG (27.0-31.0); MEAN CORPUSCULAR HGB CONC 31.8 G/DL (33.0-37.0); MEAN CORPUSCULAR VOLUME 95.1 FL (80.0-94.0); MEAN PLATELET VOLUME 7.3 FL (7.4-10.4); PLATELET COUNT 196 /CUMM (130-400); RBC DISTRIBUTION WIDTH 16.6 % (11.5-14.5); WHITE BLOOD CELL COUNT 9.8 /CUMM (4.8-10.8)
--- NOTE | 2017-04-28 08:58 | PN- Housestaff ---
Jamari PALM,[facility] 04/28/17 0857: Subjective Follow-up For: Acute respiratory failure secondary to COPD Diabetes Tele-Events Since Last Visit: Sinus rhythm 6577 QRS 0.060.08 [place] 0.20.24 Subjective: No acute events overnight. Patient states shortness of breath is improved. States he slept CPAP without any issues. Review of Systems Constitutional: Reports: see HPI. Objective Last 24 Hrs of Vital Signs/I&O Vital Signs Date Time Temp Pulse Resp B/P B/P Pulse O2 O2 Flow FiO2 Mean Ox Delivery Rate 04/28 1506 98.1 86 20 93 04/28 0839 94 Nasal 6.0L Cannula 04/28 0804 91 Nasal 6.0L Cannula 04/28 0552 98.7 67 20 104/68 96 04/28 0348 60 89 04/28 0040 66 92 04/28 0000 CPAP 04/27 2214 98.9 69 18 126/78 95 04/27 1935 91 Nasal 6.0L Cannula Intake & Output 04/28 1600 04/28 0800 04/28 0000 Intake Total 872 457 2795 Output Total 1447 396 9430 Balance -1380 -840 -434 Intake, IV 20 16 Intake, Oral 777 866 7249 Number 1 Bowel Movements Output, Urine 0012 373 2802 Patient 377 lb Weight Physical Exam General Appearance: Alert, Oriented X3, Cooperative, No Acute Distress, currently undergoing nebulized treatment Cardiovascular: Regular Rate, Normal S1, Normal S2 Lungs: Clear to Auscultation, decreased breath sounds diffusely Abdomen: Normal Bowel Sounds, Soft, No Tenderness Extremities: 1+ lower extremity edema bilaterally. Bilateral chronic venostasis changes. Bilateral frontal lower extremity dry skin. Vascular: 2+ radial pulses Current Medications: Current Medications Sig/Teo Start time Last Medication Dose Route Stop Time Status Admin Acetaminophen 1,000 MG Q6P PRN 04/25 2100 AC IV Albuterol Sulfate 3 ML TID 04/26 1600 AC 04/28 INH 1400 Azithromycin 500 MG DAILY 04/27 1115 AC 04/28 PO 04/29 1001 0855 Enoxaparin Sodium 40 MG DAILY 04/26 1000 AC 04/28 SC 0905 Furosemide 60 MG BID 04/27 2200 AC 04/28 IV 0854 Insulin Aspart 0 TIDAC 04/26 1700 DC 04/26 SC 1633 Ipratropium [place] 2.5 ML TID 03/21 1600 DC 04/27 INH 1323 Metformin HCl 1,000 MG 0800,1700 04/28 1700 AC PO Metformin HCl 500 MG 0800,1700 04/27 1700 DC 04/28 PO 0856 Ondansetron HCl 4 MG Q6P PRN 04/26 1545 AC IV Patient Medication 1 ED ONE ONE 04/28 1530 DC Teaching ED 04/28 1531 Potassium Chloride 40 MEQ BID 04/27 2200 AC 04/28 PO 0855 Prednisone 5 MG DAILY 05/05 1000 CAN PO 05/06 1001 Prednisone 10 MG DAILY 05/03 1000 CAN PO 05/04 1001 Prednisone 10 MG DAILY 05/02 1000 AC PO 05/03 1001 Prednisone 20 MG DAILY 05/01 1000 CAN PO 05/02 1001 Prednisone 20 MG DAILY 04/30 1000 AC PO 05/01 1001 Prednisone 30 MG DAILY 04/29 1000 CAN PO 05/07 0959 Prednisone 30 MG DAILY 04/29 1000 CAN PO 04/30 1001 Prednisone 30 MG DAILY 04/29 1000 CAN PO 05/04 0959 Prednisone 30 MG DAILY 04/29 1000 AC PO 04/29 1001 Prednisone 30 MG DAILY 04/28 1000 DC 04/28 PO 0855 Sitagliptin Phosphate 100 MG DAILY 04/27 1112 AC 04/28 PO 0855 Tiotropium [place] 1 PUF DAILY 04/27 1115 AC 04/28 INH 0858 Last 24 Hrs of Lab/Donato Results Last 24 Hrs of Labs/Mics: Laboratory Tests 04/28/17 0610: Anion Gap 8, Estimated GFR > 60, BUN/Creatinine Ratio 33.3 H, CBC w Diff NO MAN DIFF REQ, RBC 5.30, MCV 95.1 H, MCH 30.3, MCHC 31.8 L, RDW 16.6 H, MPV 7.3 L , Gran % 67.6, Lymphocytes % 22.8, Monocytes % 8.8, Eosinophils % 0.5, Basophils % 0.3, Absolute Granulocytes 6.6 H, Absolute Lymphocytes 2.2, Absolute Monocytes 0.9 H, Absolute Eosinophils 0, Absolute Basophils 0 Assessment/Plan Assessment: 57-year-old male with past history of COPD, obstructive sleep apnea noncompliant with CPAP, cor pulmonale, MS, hypertension, hyperlipidemia, diabetes, hypothyroidism, gastric bypass surgery, chronic lymphedema presenting for acute on chronic hypercarbic respiratory failure secondary to COPD initially admitted to the ICU and new onset diabetes. #Acute on chronic hypoxic hypercarbic respiratory failure, secondary to COPD exacerbation, acute bronchitis Patient's clinical picture, lab values, and a fairly benign chest x-ray is suggestive of acute bronchitis that exacerbated his COPD and landed up in acute respiratory failure as shown by the ABG. He received BiPAP treatments originally ICU, and is now saturating well on nasal cannula. Lower extremity Dopplers were negative for DVT. * Continue azithromycin, switched to PO today D4 total * Continue by mouth steroid taper * Continue TRC/nebs and BiPAP * Continue IV Lasix 60 mg BID * Follow Sputum culture * Patient will be discharged with nicotine gum * Follow pulmonology and cardiology recommendations #Diabetes mellitus Patient's previous HbA1c levels were consistently high but although the patient had not accepted the diagnosis yet, according to the discussions with the patient himself and his PCP Orion Nicole MD. We had a conversation about the condition yesterday at length, and he agreed to continue diabetes care and would further follow-up with his PCP. * Hemoglobin A1c 8.3, albumin 3.4 * Diabetic diet, Encourage protein supplementation * Continue januvia and Metformin per endocrinology recommendations. * Continue to follow endocrinology recommendations #Cardiology recs: Followed troponin x2 <.01, EKG to rule out ACS, and continuing diuresis. Echo results were limited by body habitus, but showed LV 60-65%, with physiologic pericardial effusion, and mild diastolic dysfunction was noted among other findings. * Continue follow cardiology recommendations as stated above #Patient's TFT is normal and I also checked with his PCP and his pharmacy yesterday to confirm that he does not take any Levothyroxine, nor had any hypothyroidism anytime in the past. #DVT ppx:SQ Lovenox #Code status: Full code Problem List: 1. Diabetes mellitus 2. COPD (chronic obstructive pulmonary disease) Pain Ratin Pain Location: none Pain Goal: Pain 4 or less Pain Plan: Pain pathway Tomorrow's Labs & Rationales: bep daily Brianda De Leon 04/28/17 1557: Attending MD Review Statement Attending Statement Attending MD Statement: examined this patient, discuss w/resident/PA/MACHINE LEATHER TRIMMER, agreed w/resident/PA/MACHINE LEATHER TRIMMER, discussed with family, reviewed EMR data (avail), discussed with nursing, discussed with case mgmt Attending Assessment/Plan: Will get endocrine consult and pt was encouraged to cont on dm meds after discharge and was also told to be compliant with his CPAP. Pt if stable over the weekend can be dced if pulm is ok with it. He is ok to try nicotine lozenges as Nicotine replacement therapy. Will give prescription for that at time of discharge.
--- NOTE | 2017-04-28 11:22 | PN- Cardiology ---
Carlos PALM,Aaron 04/28/17 1122: Subjective Subjective: Seen and examined while seated comfortably on a recliner. He endorses no complaints of cp/palpitation or dizziness. He still has sob but he reports symptomatic improvement. Objective Vital Signs and I&Os Vital Signs Date Time Temp Pulse Resp B/P B/P Pulse O2 O2 Flow FiO2 Mean Ox Delivery Rate 04/28 1506 98.1 86 20 93 04/28 0839 94 Nasal 6.0L Cannula 04/28 0804 91 Nasal 6.0L Cannula 04/28 0552 98.7 67 20 104/68 96 04/28 0348 60 89 04/28 0040 66 92 04/28 0000 CPAP 04/27 2214 98.9 69 18 126/78 95 04/27 1935 91 Nasal 6.0L Cannula Intake & Output 04/28 1600 04/28 0800 04/28 0000 04/27 1600 04/27 0800 04/27 0000 Intake Total 898 206 8913 1005 100 630 Output Total 2970 452 5810 7161 938 2744 Balance -1380 -840 -434 -395 -430 -420 Intake, IV 20 16 45 Intake, Oral 698 904 6698 960 100 630 Number 1 2 Bowel Movements Output, Urine 2018 709 4972 4007 195 2912 Patient 171.089 kg 170.579 kg 171.458 kg Weight Physical Exam: Gen: NAD HEENT: normal Lungs: clear to auscultation, normal resp. effort Heart: RRR, S1, S2, no murmurs Abdomen: Soft, nontender, no masses Extremities: No clubbing, cyanosis, or edema. Neuro: Alert and oriented x 3, cranial nerves intact Current Medications: Current Medications Sig/Teo Start time Last Medication Dose Route Stop Time Status Admin Acetaminophen 1,000 MG Q6P PRN 04/25 2100 AC IV Albuterol Sulfate 3 ML TID 04/26 1600 AC 04/28 INH 1400 Azithromycin 500 MG DAILY 04/27 1115 AC 04/28 PO 04/29 1001 0855 Enoxaparin Sodium 40 MG DAILY 04/26 1000 AC 04/28 SC 0905 Furosemide 60 MG BID 04/27 2200 AC 04/28 IV 0854 Insulin Aspart 0 TIDAC 04/26 1700 DC 04/26 SC 1633 Ipratropium [place] 2.5 ML TID 04/26 1600 DC 04/27 INH 1323 Metformin HCl 1,000 MG 0800,1700 04/28 1700 AC PO Metformin HCl 500 MG 0800,1700 04/27 1700 DC 04/28 PO 0856 Ondansetron HCl 4 MG Q6P PRN 04/26 1545 AC IV Patient Medication 1 ED ONE ONE 04/28 1530 DC Teaching ED 04/28 1531 Potassium Chloride 40 MEQ BID 04/27 2200 AC 04/28 PO 0855 Prednisone 5 MG DAILY 05/05 1000 AC PO 05/06 1001 Prednisone 10 MG DAILY 05/03 1000 AC PO 05/04 1001 Prednisone 20 MG DAILY 05/01 1000 AC PO 05/02 1001 Prednisone 30 MG DAILY 04/29 1000 CAN PO 05/07 0959 Prednisone 30 MG DAILY 04/29 1000 AC PO 04/30 1001 Prednisone 30 MG DAILY 04/28 1000 DC 04/28 PO 0855 Sitagliptin Phosphate 100 MG DAILY 04/27 1112 AC 04/28 PO 0855 Tiotropium [place] 1 PUF DAILY 04/27 1115 AC 04/28 INH 0858 Results Last 48 Hrs of Labs/Mics: Laboratory Tests 04/28/17 0610: Anion Gap 8, Estimated GFR > 60, BUN/Creatinine Ratio 33.3 H, CBC w Diff NO MAN DIFF REQ, RBC 5.30, MCV 95.1 H, MCH 30.3, MCHC 31.8 L, RDW 16.6 H, MPV 7.3 L , Gran % 67.6, Lymphocytes % 22.8, Monocytes % 8.8, Eosinophils % 0.5, Basophils % 0.3, Absolute Granulocytes 6.6 H, Absolute Lymphocytes 2.2, Absolute Monocytes 0.9 H, Absolute Eosinophils 0, Absolute Basophils 0 04/27/17 0445: Anion Gap 8, Estimated GFR > 60, Glucose 162 H, Calcium 8.3 L, Phosphorus 4.3, Magnesium 2.1, Total Bilirubin 0.8, AST 17, ALT 33, Albumin 3.4 L, CBC w Diff NO MAN DIFF REQ, RBC 5.38, MCV 93.8, MCH 29.9, MCHC 31.9 L, RDW 16.5 H, MPV 7.4, Gran % 77.6 H, Lymphocytes % 13.8 L, Monocytes % 8.0, Eosinophils % 0.3, Basophils % 0.3, Absolute Granulocytes 8.8 H, Absolute Lymphocytes 1.6, Absolute Monocytes 0.9 H, Absolute Eosinophils 0, Absolute Basophils 0 04/26/17 1815: Anion Gap 9, Estimated GFR > 60, Glucose 181 H, Calcium 8.4, Phosphorus 3.8, Magnesium 1.9, Total Bilirubin 0.6, AST 18, ALT 35, Albumin 3.5 Assessment/Plan Assessment/Plan Assessment: 1. Acute on chronic hypoxic/hypercapnic respiratory failure 2. COPD exacerbation 3. Reported history of cor pulmonale 4. History of prior myocardial infarction 5. Obstructive sleep apnea, noncompliant with CPAP 6. Hypothyroidism 7. Hypertension 8. Hyperlipidemia 9. Diabetes 10. chronic lower extremity edema/lymphedema 11. Obesity Plan: * Patient might benefit from complex physical therapy with treatment aimed at improving lymphedema with manual lymphatic drainage, massage, and exercise. * Will defer to Pulmonology and medical team regarding diuretic use and dosing since patient does not have clinical signs of acute decompensated CHF, his edema is mostly lymphatic and nonpitting. * Monitor input and output while on diuretic theray * Discussed plan with cardiology attending, formal attending addendum/note to follow Continue telemetry? Yes Problem List: 1. Lymphedema Quang PALM,Zaid Lynne 04/28/17 2846: Assessment/Plan Assessment/Plan Attending addemdum: THe patient was seen and examined by me and discussed with the medical team and the patient/ I would continue the plan as outllined above. I believe that the patient has a significant component of lymphedema and would likely benefit from appropriate PT as outpatient.
--- NOTE | 2017-04-28 13:11 | Cons- Endocrinology ---
General Information and HPI Consulting Request Date of Consult: 04/28/17 Requested By: medical team Reason for Consult: management of uncontrolled DM type 2 Source of Information: patient, old records Exam Limitations: no limitations History of Present Illness: 57 y/o male morbid obese, was diagnosed with DM type 2 3-4 years ago and required insulin and oral medications. He lost approximately 150 pounds and then he didn't need to take any medication for diabetes. However, he has gradually gained 80 pounds back. He was admitted for COPD excerbation and respiratory failure. His HbA1c was 8.1%. Currently he is on prednisone 30 mg daily, metformin 500 mg twice aday, januvia 100 mg daily and Novolog coverage when his glucose level is > 150. His FSGs were 135, 148, 166, 159, 142 and 150. Allergies/Medications Allergies: Coded Allergies: NO KNOWN ALLERGIES (05/18/14) Home Med List: Furosemide 80 MG TABLET 1 TAB PO TID FLUID OVERLOAD (Reported) Review of Systems Review of Systems Constitutional: Reports: see HPI. Cardiovascular: Reports: peripheral edema. Denies: chest pain. Respiratory: Reports: short of breath. GI: Denies: abdominal pain, diarrhea. Genitourinary: Denies: dysuria. 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 Home Services at Home: None Smoking Status: Current Everyday Smoker Functional Ability ADLs Independent: dressing, eating, toileting, bathing. Ambulation: independent IADLs Independent: shopping, housework, finances, food prep, telephone, transportation , medication admin. Exam & Diagnostic Data Last 24 Hrs of Vital Signs/I&O Vital Signs Date Time Temp Pulse Resp B/P B/P Pulse O2 O2 Flow FiO2 Mean Ox Delivery Rate 04/28 0839 94 Nasal 6.0L Cannula 04/28 0804 91 Nasal 6.0L Cannula 04/28 0552 98.7 67 20 104/68 96 04/28 0348 60 89 04/28 0040 66 92 04/28 0000 CPAP 04/27 2214 98.9 69 18 126/78 95 04/27 1935 91 Nasal 6.0L Cannula 04/27 1600 Nasal 6.0L Cannula 04/27 1548 98.4 20 20 102/66 94 Nasal 4.0L Cannula 04/27 1331 90 Nasal 6.0L Cannula Intake & Output 04/28 1600 04/28 0800 04/28 0000 Intake Total 110 1016 Output Total 950 1450 Balance -840 -434 Intake, IV 16 Intake, Oral 110 1000 Number 1 Bowel Movements Output, Urine 950 1450 Patient 377 lb Weight Physical Exam General Appearance: no apparent distress Respiratory: wheezing (scattered) Cardiovascular: regular rate/rhythm Extremities: swelling (with chronic skin changes) Labs/Donato Results: Laboratory Tests 04/28 04/27 0610 0445 Chemistry Sodium (137 - 145 mmol/L) 139 137 Potassium (3.5 - 5.1 mmol/L) 4.0 4.1 Chloride (98 - 107 mmol/L) 91 L 90 L Carbon Dioxide (22 - 30 mmol/L) 40 H 39 H Anion Gap (5 - 16) 8 8 BUN (9 - 20 mg/dL) 30 H 29 H Creatinine (0.7 - 1.2 mg/dL) 0.9 0.9 Estimated GFR (>60 ml/min) > 60 > 60 BUN/Creatinine Ratio (7 - 25 %) 33.3 H Glucose (65 - 99 mg/dL) 162 H Calcium (8.4 - 10.2 mg/dL) 8.3 L Phosphorus (2.5 - 4.5 mg/dL) 4.3 Magnesium (1.6 - 2.3 mg/dL) 2.1 Total Bilirubin (0.2 - 1.3 mg/dL) 0.8 AST (17 - 59 U/L) 17 ALT (21 - 72 U/L) 33 Albumin (3.5 - 5.0 g/dL) 3.4 L Hematology CBC w Diff NO MAN DIFF REQ NO MAN DIFF REQ WBC (4.8 - 10.8 /CUMM) 9.8 11.3 H RBC (4.70 - 6.10 /CUMM) 5.30 5.38 Hgb (14.0 - 18.0 G/DL) 16.0 16.1 Hct (42 - 52 %) 50.4 50.5 MCV (80.0 - 94.0 FL) 95.1 H 93.8 MCH (27.0 - 31.0 PG) 30.3 29.9 MCHC (33.0 - 37.0 G/DL) 31.8 L 31.9 L RDW (11.5 - 14.5 %) 16.6 H 16.5 H Plt Count (130 - 400 /CUMM) 196 208 MPV (7.4 - 10.4 FL) 7.3 L 7.4 Gran % (42.2 - 75.2 %) 67.6 77.6 H Lymphocytes % (20.5 - 51.1 %) 22.8 13.8 L Monocytes % (1.7 - 9.3 %) 8.8 8.0 Eosinophils % (0 - 5 %) 0.5 0.3 Basophils % (0.0 - 2.0 %) 0.3 0.3 Absolute Granulocytes (1.4 - 6.5 /CUMM) 6.6 H 8.8 H Absolute Lymphocytes (1.2 - 3.4 /CUMM) 2.2 1.6 Absolute Monocytes (0.10 - 0.60 /CUMM) 0.9 H 0.9 H Absolute Eosinophils (0.0 - 0.7 /CUMM) 0 0 Absolute Basophils (0.0 - 0.2 /CUMM) 0 0 03/21 1815 Chemistry Sodium (137 - 145 mmol/L) 135 L Potassium (3.5 - 5.1 mmol/L) 4.2 Chloride (98 - 107 mmol/L) 90 L Carbon Dioxide (22 - 30 mmol/L) 37 H Anion Gap (5 - 16) 9 BUN (9 - 20 mg/dL) 25 H Creatinine (0.7 - 1.2 mg/dL) 1.0 Estimated GFR (>60 ml/min) > 60 Glucose (65 - 99 mg/dL) 181 H Calcium (8.4 - 10.2 mg/dL) 8.4 Phosphorus (2.5 - 4.5 mg/dL) 3.8 Magnesium (1.6 - 2.3 mg/dL) 1.9 Total Bilirubin (0.2 - 1.3 mg/dL) 0.6 AST (17 - 59 U/L) 18 ALT (21 - 72 U/L) 35 Albumin (3.5 - 5.0 g/dL) 3.5 Assessment/Plan Assessment/Plan 57 y/o male morbid obese, was diagnosed with DM type 2 3-4 years ago and required insulin and oral medications. He lost approximately 150 pounds and then he didn't need to take any medication for diabetes. However, he has gradually gained 80 pounds back. He was admitted for COPD excerbation and respiratory failure. His HbA1c was 8.1%. Currently he is on prednisone 30 mg daily, metformin 500 mg twice aday, januvia 100 mg daily and Novolog coverage when his glucose level is > 150. His glucose level has been stable. Plan: increase metformin to 1000 mg twice a day; continue Januvia 100 mg daily; hold off on Novolog; continue monitor FSGs; consider changing Januvia to GLP-1 analog as outpatient to control both diabetes and weight. will follow. Consult Acknowledgment - Thank you for your consult request.
[2017-04-28] MEDS ORDERED: JANUVIA100 M1 PO (17:11)
[2017-04-28] MEDS ORDERED: PREDNISONE10 M2 PO ×2 (17:11→17:25)
[2017-04-28] MEDS ORDERED: METFORMIN HCL1000 M1 PO (17:11)
[2017-04-28] MEDS ORDERED: SYMBICORT 16010.2 GM INH (17:19)
[2017-04-28] MEDS ORDERED: KLOR-CON M2020 ME1 PO (17:19)
[2017-04-28] MEDS ORDERED: SPIRIVA18 MCG INH (17:19)
--- NOTE | 2017-04-28 17:32 | Patient Discharge Instructions ---
Discharge Instructions General Discharge Information Special Instructions: Please follow up with your PCP. Please follow up with your weight analyst. Please follow up with your new pulmnologist Dr. Talbot. Please follow up with Dr. West your new rn supplemental. Please continue your medications as perscribed. Please follow up with the COPD/CHF wellness clinic here at [phone]. Acute Coronary Syndrome Inclusion Criteria At DC or during hospital stay patient has or had the following: ACS DIAGNOSIS No Discharge Core Measures Meds if any: Prescribed or Continued at Discharge Meds if any: NOT Prescribed or Continued at Discharge Congestive Heart Failure Inclusion Criteria At DC or during hospital stay patient has or had the following: CHF DIAGNOSIS No Discharge Core Measures Meds if any: Prescribed or Continued at Discharge Meds if any: NOT Prescribed or Continued at Discharge Cerebrovascular accident Inclusion Criteria At DC or during hospital stay patient has or had the following: CVA/TIA Diagnosis No Discharge Core Measures Meds if any: Prescribed or Continued at Discharge Meds if any: NOT Prescribed or Continued at Discharge Venous thromboembolism Inclusion Criteria VTE Diagnosis No VTE Type NONE VTE Confirmed by (Test) NONE Discharge Core Measures - Per Current guidelines, there needs to be overlap - treatment for the first 5 days of Warfarin therapy. - If discharged on Warfarin prior to 5 days of - overlap therapy, the patient will need to be - assessed for post discharge needs including - *Post discharge parental anticoagulation - *Warfarin and/or parental anticoagulation education - *Follow up date to check INR post discharge At least 5 days overlap therapy as Inpatient No Meds if any: Prescribed or Continued at Discharge Note: Overlap Therapy is Warfarin and Anticoagulant Meds if any: NOT Prescribed or Continued at Discharge
[2017-04-28] MEDS ORDERED: NICOTINE LOZENGE2 M1 PO (17:45)
--- NOTE | 2017-04-28 19:09 | PN- Pulmonary ---
Subjective HPI/Critical Care Issues: Doing well stable improved Objective Current Medications: Current Medications Sig/Teo Start time Last Medication Dose Route Stop Time Status Admin Acetaminophen 1,000 MG Q6P PRN 04/25 2100 AC IV Albuterol Sulfate 3 ML TID 04/26 1600 AC 04/28 INH 1400 Azithromycin 500 MG DAILY 04/27 1115 AC 04/28 PO 04/29 1001 0855 Enoxaparin Sodium 40 MG DAILY 04/26 1000 AC 04/28 SC 0905 Furosemide 60 MG BID 04/27 2200 AC 04/28 IV 0854 Insulin Aspart 0 TIDAC 04/26 1700 DC 04/26 SC 1633 Ipratropium [place] 2.5 ML TID 04/26 1600 DC 04/27 INH 1323 Metformin HCl 1,000 MG 0800,1700 04/28 1700 AC PO Metformin HCl 500 MG 0800,1700 04/27 1700 DC 04/28 PO 0856 Ondansetron HCl 4 MG Q6P PRN 04/26 1545 AC IV Patient Medication 1 ED ONE ONE 04/28 1530 DE Teaching ED 04/28 1531 Potassium Chloride 40 MEQ BID 04/27 2200 AC 04/28 PO 0855 Prednisone 5 MG DAILY 05/05 1000 CAN PO 05/06 1001 Prednisone 10 MG DAILY 05/03 1000 CAN PO 05/04 1001 Prednisone 10 MG DAILY 05/02 1000 AC PO 05/03 1001 Prednisone 20 MG DAILY 05/01 1000 CAN PO 05/02 1001 Prednisone 20 MG DAILY 04/30 1000 AC PO 05/01 1001 Prednisone 30 MG DAILY 04/29 1000 CAN PO 05/07 0959 Prednisone 30 MG DAILY 04/29 1000 CAN PO 04/30 1001 Prednisone 30 MG DAILY 04/29 1000 CAN PO 05/04 0959 Prednisone 30 MG DAILY 04/29 1000 AC PO 04/29 1001 Prednisone 30 MG DAILY 04/28 1000 DC 04/28 PO 0855 Sitagliptin Phosphate 100 MG DAILY 04/27 1112 AC 04/28 PO 0855 Tiotropium [place] 1 PUF DAILY 04/27 1115 AC 04/28 INH 0858 Vital Signs & I&O Last 24 Hrs of Vitals and I&O: Vital Signs Date Time Temp Pulse Resp B/P B/P Pulse O2 O2 Flow FiO2 Mean Ox Delivery Rate 04/28 1506 98.1 86 20 93 04/28 0839 94 Nasal 6.0L Cannula 04/28 0804 91 Nasal 6.0L Cannula 04/28 0552 98.7 67 20 104/68 96 04/28 0348 60 89 04/28 0040 66 92 04/28 0000 CPAP 04/274 98.9 69 18 126/78 95 04/27 1935 91 Nasal 6.0L Cannula Intake & Output 04/28 1600 04/28 0800 04/28 0000 Intake Total 125 789 3442 Output Total 2692 394 7119 Balance -1380 -840 -434 Intake, IV 20 16 Intake, Oral 835 712 0447 Number 1 Bowel Movements Output, Urine 8186 472 0941 Patient 377 lb Weight Laboratory Tests 04/28 04/27 0610 0445 Chemistry Sodium (137 - 145 mmol/L) 139 137 Potassium (3.5 - 5.1 mmol/L) 4.0 4.1 Chloride (98 - 107 mmol/L) 91 L 90 L Carbon Dioxide (22 - 30 mmol/L) 40 H 39 H Anion Gap (5 - 16) 8 8 BUN (9 - 20 mg/dL) 30 H 29 H Creatinine (0.7 - 1.2 mg/dL) 0.9 0.9 Estimated GFR (>60 ml/min) > 60 > 60 BUN/Creatinine Ratio (7 - 25 %) 33.3 H Glucose (65 - 99 mg/dL) 162 H Calcium (8.4 - 10.2 mg/dL) 8.3 L Phosphorus (2.5 - 4.5 mg/dL) 4.3 Magnesium (1.6 - 2.3 mg/dL) 2.1 Total Bilirubin (0.2 - 1.3 mg/dL) 0.8 AST (17 - 59 U/L) 17 ALT (21 - 72 U/L) 33 Albumin (3.5 - 5.0 g/dL) 3.4 L Hematology CBC w Diff NO MAN DIFF REQ NO MAN DIFF REQ WBC (4.8 - 10.8 /CUMM) 9.8 11.3 H RBC (4.70 - 6.10 /CUMM) 5.30 5.38 Hgb (14.0 - 18.0 G/DL) 16.0 16.1 Hct (42 - 52 %) 50.4 50.5 MCV (80.0 - 94.0 FL) 95.1 H 93.8 MCH (27.0 - 31.0 PG) 30.3 29.9 MCHC (33.0 - 37.0 G/DL) 31.8 L 31.9 L RDW (11.5 - 14.5 %) 16.6 H 16.5 H Plt Count (130 - 400 /CUMM) 196 208 MPV (7.4 - 10.4 FL) 7.3 L 7.4 Gran % (42.2 - 75.2 %) 67.6 77.6 H Lymphocytes % (20.5 - 51.1 %) 22.8 13.8 L Monocytes % (1.7 - 9.3 %) 8.8 8.0 Eosinophils % (0 - 5 %) 0.5 0.3 Basophils % (0.0 - 2.0 %) 0.3 0.3 Absolute Granulocytes (1.4 - 6.5 /CUMM) 6.6 H 8.8 H Absolute Lymphocytes (1.2 - 3.4 /CUMM) 2.2 1.6 Absolute Monocytes (0.10 - 0.60 /CUMM) 0.9 H 0.9 H Absolute Eosinophils (0.0 - 0.7 /CUMM) 0 0 Absolute Basophils (0.0 - 0.2 /CUMM) 0 0 Microbiology Date/Time Procedure - Status Source Growth 04/26 2219 Surveillance Culture - COMP UPPER RESP 04/26 2219 Surveillance Culture - COMP GI 04/25 2104 Respiratory Culture - CAN LOWER RESP Cancelled: SPECIMEN NOT RECEIVED IN LABORATORY 04/25 2104 Gram Stain - CAN LOWER RESP Cancelled: SPECIMEN NOT RECEIVED IN LABORATORY 04/25 2100 Urine Culture - COMP URINE ROUT Impression/Plan Impression/Plan Impression/Plan: General Appearancepoff cpap A/A/O x 3 Skin No Rashes, No Breakdown, No Significant Lesion Skin Temp/Moisture Exam: Warm/Dry Sepsis Skin Exam (color): Normal for Ethnicity HEENT Atraumatic, PERRLA, EOMI, Mucous Membr. moist/pink Neck Supple, No JVD Cardiovascular Regular Rate, Normal S1, Normal S2, No Murmurs Lungs Clear to Auscultation, Diminished airflow in all lung garcia with scattered rhonchi anteriorly, no wheezing or crackles Abdomen Normal Bowel Sounds, Soft, No Tenderness, No Hepatospenomegaly, No Masses Neurological Somnolent, AAOx0, follows simple commands Extremities No Clubbing, No Cyanosis, No Edema, Normal Pulses, No Tenderness/ Swelling, 4+ bilateral lower extremity swelling with severe scaling, no open wounds Vascular Normal Pulses, Pulses Symmetrical IMPRESSION This is a gentleman with severe morbid obesity with previous gastric sleeve surgery which had initially worked but now has put on sig weight, very severe obstructive sleep apnea with previous cor pulmonale right more than left heart dysfunction in the past, moderate COPD, significant smoking history more than [id number] smoker now smokes more than 1 packs a day, noncompliant with CPAP management, diabetes history, hypertension, hyperlipidemia, history of hypothyroidism, previous admission to this hospital for biventricular heart failure respiratory failure and cor pulmonale, chronic lymphedema of both legs, chronic dermatitis of his leg with lymphedema, previous history of recurrent cellulitis and lymphadenopathy in the groin now comes in with * Improving Acute on chronic Hypercarbic resp failure due to noncompliance with cpap * Improving Acute corpulmonale with rt heart failure * 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 packs a day smoker) * Sig copd with Acute bronchitis * Morbid obesity * Severe TAN and not compliant with cpap * DM and hypothryoid on meds at home * Chronic lymphedema of both lower ext REC/PLAN CPAP at 12 Keep HOB up Cont lasix per cardop Keep potassium above 4 Change to po prednisone 30 mg in am and wean in 5 days Cont nebs atc start spiriva one puff daily start symbicort Wean oxygen and keep sat at 92 Pt needs home oxygen Titrate oxygen down if able Cont lovenox Ok to the floor late today Pt counselled about his cpap use and wt loss and he understands risks and benefits of rx PT needs to use cpap at hs and to continue oxygen aswell
[2017-04-28 22:25] VITALS: BP 116/64
[2017-04-29 07:15] VITALS: BP 122/60
--- NOTE | 2017-04-29 08:26 | PN- Housestaff ---
Subjective Follow-up For: Acute respiratory failure secondary to COPD Diabetes Tele-Events Since Last Visit: Normal sinus rhythm, 6872 Subjective: Patient was seen and examined at bedside, no overnight events, denies any complaints Review of Systems Constitutional: Reports: see HPI. Objective Last 24 Hrs of Vital Signs/I&O Vital Signs Date Time Temp Pulse Resp B/P B/P Pulse O2 O2 Flow FiO2 Mean Ox Delivery Rate 04/29 0937 94 Nasal 5.0L Cannula 04/29 0800 Nasal 6.0L Cannula 04/29 0715 98.2 74 24 122/60 94 BIPAP 04/29 0233 63 94 04/29 0013 69 92 04/29 0000 BIPAP 04/28 2250 90 95 04/28 2249 92 Nasal 6.0L Cannula 04/28 2225 98.4 79 18 116/64 97 04/28 1600 Nasal 2.0L Cannula 04/28 1506 98.1 86 20 93 Intake & Output 04/29 1600 04/29 0800 04/29 0000 Intake Total 360 120 Output Total 1950 700 Balance -1590 -580 Intake, Oral 360 120 Output, Urine 1950 700 Patient 381 lb Weight Physical Exam General Appearance: Alert, Oriented X3, Cooperative, No Acute Distress HEENT: Atraumatic, PERRLA, EOMI, Mucous Membr. moist/pink Cardiovascular: Normal S1, Normal S2, No Murmurs Lungs: Clear to Auscultation Abdomen: Normal Bowel Sounds, Soft, No Tenderness Neurological: Normal Speech, Strength at 5/5 X4 Ext, Normal Tone, Sensation Intact Extremities: No Clubbing, No Cyanosis, No Edema Current Medications: Current Medications Sig/Teo Start time Last Medication Dose Route Stop Time Status Admin Acetaminophen 1,000 MG Q6P PRN 04/25 2100 AC IV Acetazolamide 250 MG ONCE ONE 04/29 1130 UNVr PO 04/29 1131 Albuterol Sulfate 3 ML TID 04/26 1600 AC 04/29 INH 0936 Azithromycin 500 MG DAILY 04/27 1115 DC 04/29 PO 04/29 1001 0855 Budesonide/ 2 PUF BID 04/28 2199 AC 04/29 Formoterol Fumarate INH 0855 Enoxaparin Sodium 40 MG DAILY 04/26 1000 AC 04/29 SC 0902 Furosemide 60 MG BID 04/27 2199 AC 04/29 IV 0855 Insulin Aspart 0 TIDAC 04/26 1700 DC 04/26 SC 1633 Loperamide HCl 2 MG ONE ONE 04/28 2130 DC 04/28 PO 04/28 2131 2232 Metformin HCl 1,000 MG 0800,1700 04/28 1700 AC 04/29 PO 0736 Metformin HCl 500 MG 0800,1700 04/27 1700 DC 04/28 PO 0856 Ondansetron HCl 4 MG Q6P PRN 04/26 1545 AC IV Patient Medication 1 ED ONE ONE 04/28 1530 DC Teaching ED 04/28 1531 Potassium Chloride 40 MEQ ONCE ONE 04/29 1145 UNVr PO 04/29 1146 Potassium Chloride 40 MEQ BID 04/27 2200 AC 04/29 PO 0855 Prednisone 5 MG DAILY 05/05 1000 CAN PO 05/06 1001 Prednisone 10 MG DAILY 05/03 1000 CAN PO 05/04 1001 Prednisone 10 MG DAILY 05/02 1000 AC PO 05/03 1001 Prednisone 20 MG DAILY 05/01 1000 CAN PO 05/02 1001 Prednisone 20 MG DAILY 04/30 1000 AC PO 05/01 1001 Prednisone 30 MG DAILY 04/29 1000 CAN PO 05/07 0959 Prednisone 30 MG DAILY 04/29 1000 CAN PO 04/30 1001 Prednisone 30 MG DAILY 04/29 1000 CAN PO 05/04 0959 Prednisone 30 MG DAILY 04/29 1000 DC 04/29 PO 04/29 1001 0855 Prednisone 30 MG DAILY 04/28 1000 DC 04/28 PO 0855 Sitagliptin Phosphate 100 MG DAILY 04/27 1112 AC 04/29 PO 0854 Tiotropium [place] 1 PUF DAILY 04/27 1115 AC 04/29 INH 0902 Last 24 Hrs of Lab/Donato Results Last 24 Hrs of Labs/Mics: Laboratory Tests 04/29/17 0708: Anion Gap 10, Estimated GFR > 60, BUN/Creatinine Ratio 26.7 H Assessment/Plan Assessment: 57-year-old male with past history of COPD, obstructive sleep apnea noncompliant with CPAP, cor pulmonale, [place], hypertension, hyperlipidemia, diabetes, hypothyroidism, gastric bypass surgery, chronic lymphedema presenting for acute on chronic hypercarbic respiratory failure secondary to COPD initially admitted to the ICU and new onset diabetes. #Acute on chronic hypoxic hypercarbic respiratory failure, secondary to COPD exacerbation, acute bronchitis Patient's clinical picture, lab values, and a fairly benign chest x-ray is suggestive of acute bronchitis that exacerbated his COPD and landed up in acute respiratory failure as shown by the ABG. He received BiPAP treatments originally ICU, and is now saturating well on nasal cannula. Lower extremity Dopplers were negative for DVT. * Continue azithromycin, switched to PO today D4 total * Continue by mouth steroid taper * Continue TRC/nebs and BiPAP * Continue IV Lasix 60 mg BID * P.o. Diamox 250 once * We will taper oxygen if saturation allows. * Replete potassium * Follow Sputum culture * Patient will be discharged with nicotine gum * Follow pulmonology and cardiology recommendations #Diabetes mellitus FSG 103,87 Patient's previous HbA1c levels were consistently high but although the patient had not accepted the diagnosis yet, according to the discussions with the patient himself and his PCP Orion Nicole MD. We had a conversation about the condition yesterday at length, and he agreed to continue diabetes care and would further follow-up with his PCP. * Hemoglobin A1c 8.3, albumin 3.4 * Diabetic diet, Encourage protein supplementation * Continue januvia and Metformin per endocrinology recommendations. * Continue to follow endocrinology recommendations #Cardiology recs: Followed troponin x2 <.01, EKG to rule out ACS, and continuing diuresis. Echo results were limited by body habitus, but showed LV 60-65%, with physiologic pericardial effusion, and mild diastolic dysfunction was noted among other findings. * Continue follow cardiology recommendations as stated above #Patient's TFT is normal and I also checked with his PCP and his pharmacy yesterday to confirm that he does not take any Levothyroxine, nor had any hypothyroidism anytime in the past. #DVT ppx:SQ Lovenox #Code status: Full code Problem List: 1. Diabetes mellitus 2. COPD (chronic obstructive pulmonary disease) Pain Ratin Pain Location: N/A Pain Goal: Remain pain free Pain Plan: PATHWAY Tomorrow's Labs & Rationales: BEP
--- NOTE | 2017-04-29 09:59 | PN- Pulmonary ---
Subjective HPI/Critical Care Issues: Patient is awake alert and feels her shortness of breath is improved. He is utilizing nocturnal BiPAP Objective Current Medications: Current Medications Sig/Teo Start time Last Medication Dose Route Stop Time Status Admin Acetaminophen 1,000 MG Q6P PRN 04/25 2100 AC IV Albuterol Sulfate 3 ML TID 04/26 1600 AC 04/29 INH 0936 Azithromycin 500 MG DAILY 04/27 1115 AC 04/29 PO 04/29 1001 0855 Budesonide/ 2 PUF BID 04/28 2200 AC 04/29 Formoterol Fumarate INH 0855 Enoxaparin Sodium 40 MG DAILY 04/26 1000 AC 04/29 SC 0902 Furosemide 60 MG BID 04/27 2200 AC 04/29 IV 0855 Insulin Aspart 0 TIDAC 04/26 1700 DC 04/26 SC 1633 Loperamide HCl 2 MG ONE ONE 04/28 2130 DC 04/28 PO 04/28 2131 2232 Metformin HCl 1,000 MG 0800,1700 04/28 1700 AC 04/29 PO 0736 Metformin HCl 500 MG 0800,1700 04/27 1700 DC 04/28 PO 0856 Ondansetron HCl 4 MG Q6P PRN 04/26 1545 AC IV Patient Medication 1 ED ONE ONE 04/28 1530 DC Teaching ED 04/28 1531 Potassium Chloride 40 MEQ BID 04/27 2200 AC 04/29 PO 0855 Prednisone 5 MG DAILY 05/05 1000 CAN PO 05/06 1001 Prednisone 10 MG DAILY 05/03 1000 CAN PO 05/04 1001 Prednisone 10 MG DAILY 05/02 1000 AC PO 05/03 1001 Prednisone 20 MG DAILY 05/01 1000 CAN PO 05/02 1001 Prednisone 20 MG DAILY 04/30 1000 AC PO 05/01 1001 Prednisone 30 MG DAILY 04/29 1000 CAN PO 05/07 0959 Prednisone 30 MG DAILY 04/29 1000 CAN PO 04/30 1001 Prednisone 30 MG DAILY 04/29 1000 CAN PO 05/04 0959 Prednisone 30 MG DAILY 04/29 1000 AC 04/29 PO 04/29 1001 0855 Prednisone 30 MG DAILY 04/28 1000 DC 04/28 PO 0855 Sitagliptin Phosphate 100 MG DAILY 04/27 1112 AC 04/29 PO 0854 Tiotropium [place] 1 PUF DAILY 04/27 1115 AC 04/29 INH 0902 Vital Signs & I&O Last 24 Hrs of Vitals and I&O: Vital Signs Date Time Temp Pulse Resp B/P B/P Pulse O2 O2 Flow FiO2 Mean Ox Delivery Rate 04/29 0937 94 Nasal 5.0L Cannula 04/29 0800 Nasal 6.0L Cannula 04/29 0715 98.2 74 24 122/60 94 BIPAP 04/29 0233 63 94 04/29 0013 69 92 04/29 0000 BIPAP 04/28 2250 90 95 04/28 2249 92 Nasal 6.0L Cannula 04/28 2225 98.4 79 18 116/64 97 04/28 1600 Nasal 2.0L Cannula 04/28 1506 98.1 86 20 93 Intake & Output 04/29 1600 04/29 0800 04/29 0000 Intake Total 360 120 Output Total 1950 700 Balance -1590 -580 Intake, Oral 360 120 Output, Urine 1950 700 Patient 381 lb Weight Saturation 5 L 94% exam of his chest shows diminished breath sounds are no wheezes cardiac exam shows a regular S1 and S2 extremities have chronic venous stasis changes with marked hyperpigmentation Impression/Plan Impression/Plan Impression/Plan: 57-year-old morbid obesity chronic hypercapnic respiratory failure and right ventricular failure is slowly improving. Note bicarbonate has increased to 40 Recommendations: Continue negative fluid balance. Obtain potassium of at least 4. Diamox 250 mg by mouth 1 dose monitor electrolytes daily Taper FiO2 his saturations allow
--- NOTE | 2017-04-29 12:51 | PN- Att Addend ---
Attending Addendum Attending Brief Note Patient seen and examined. Plan of care discussed with the medical team and the patient. Available lab work and radiology test reports were reviewed. Patient denies any difficulty breathing. He denies any chest pain or fever. Is able to ambulate within the room without getting short of breath. Exam: General: Patient awake alert oriented without any distress; patient is obese CVS: S1 plus S2 without any murmur or gallops Chest: scattered crepitation without any wheeze. There is no respiratory distress. Abdomen: Soft non-tender, bowel sound present, no guarding or rebound PODODERMATOLOGIST: Awake alert oriented without any focal neuro deficit and follows commands appropriately Extremities: No edema; no clubbing or cyanosis noted Current Medications Sig/Teo Start time Last Medication Dose Route Stop Time Status Admin Acetaminophen 1,000 MG Q6P PRN 04/25 2100 AC IV Acetazolamide 250 MG ONCE ONE 04/29 1130 DC 04/29 PO 04/29 1131 1215 Albuterol Sulfate 3 ML TID 04/26 1600 AC 04/29 INH 0936 Azithromycin 500 MG DAILY 04/27 1115 DC 04/29 PO 04/29 1001 0855 Budesonide/ 2 PUF BID 04/28 2200 AC 04/29 Formoterol Fumarate INH 0855 Enoxaparin Sodium 40 MG DAILY 04/26 1000 AC 04/29 SC 0902 Furosemide 60 MG BID 04/27 2200 AC 04/29 IV 0855 Insulin Aspart 0 TIDAC 04/26 1700 DC 04/26 SC 1633 Loperamide HCl 2 MG ONE ONE 04/28 2130 DC 04/28 PO 04/28 2131 2232 Metformin HCl 1,000 MG 0800,0 04/28 1700 AC 04/29 PO 0736 Metformin HCl 500 MG 0800,1700 04/27 1700 DC 04/28 PO 0856 Ondansetron HCl 4 MG Q6P PRN 04/26 1545 AC IV Patient Medication 1 ED ONE ONE 04/28 1530 DC Teaching ED 04/28 1531 Potassium Chloride 40 MEQ ONCE ONE 04/29 1145 DC 04/29 PO 04/29 1146 1215 Potassium Chloride 40 MEQ BID 04/27 2200 AC 04/29 PO 0855 Prednisone 5 MG DAILY 05/05 1000 CAN PO 05/06 1001 Prednisone 10 MG DAILY 05/03 1000 CAN PO 05/04 1001 Prednisone 10 MG DAILY 05/02 1000 AC PO 05/03 1001 Prednisone 20 MG DAILY 05/01 1000 CAN PO 05/02 1001 Prednisone 20 MG DAILY 04/30 1000 AC PO 05/01 1001 Prednisone 30 MG DAILY 04/29 1000 CAN PO 05/07 0959 Prednisone 30 MG DAILY 04/29 1000 CAN PO 04/30 1001 Prednisone 30 MG DAILY 04/29 1000 CAN PO 05/04 0959 Prednisone 30 MG DAILY 04/29 1000 DC 04/29 PO 04/29 1001 0855 Prednisone 30 MG DAILY 04/28 1000 DC 04/28 PO 0855 Sitagliptin Phosphate 100 MG DAILY 04/27 1112 AC 04/29 PO 0854 Tiotropium [place] 1 PUF DAILY 04/27 1115 AC 04/29 INH 0902 Laboratory Tests 04/29/17 0708: Anion Gap 10, Estimated GFR > 60, BUN/Creatinine Ratio 26.7 H 04/28/17 0610: Anion Gap 8, Estimated GFR > 60, BUN/Creatinine Ratio 33.3 H, CBC w Diff NO MAN DIFF REQ, RBC 5.30, MCV 95.1 H, MCH 30.3, MCHC 31.8 L, RDW 16.6 H, MPV 7.3 L , Gran % 67.6, Lymphocytes % 22.8, Monocytes % 8.8, Eosinophils % 0.5, Basophils % 0.3, Absolute Granulocytes 6.6 H, Absolute Lymphocytes 2.2, Absolute Monocytes 0.9 H, Absolute Eosinophils 0, Absolute Basophils 0 04/27/17 0445: Anion Gap 8, Estimated GFR > 60, Glucose 162 H, Calcium 8.3 L, Phosphorus 4.3, Magnesium 2.1, Total Bilirubin 0.8, AST 17, ALT 33, Albumin 3.4 L, CBC w Diff NO MAN DIFF REQ, RBC 5.38, MCV 93.8, MCH 29.9, MCHC 31.9 L, RDW 16.5 H, MPV 7.4, Gran % 77.6 H, Lymphocytes % 13.8 L, Monocytes % 8.0, Eosinophils % 0.3, Basophils % 0.3, Absolute Granulocytes 8.8 H, Absolute Lymphocytes 1.6, Absolute Monocytes 0.9 H, Absolute Eosinophils 0, Absolute Basophils 0 04/26/17 1815: Anion Gap 9, Estimated GFR > 60, Glucose 181 H, Calcium 8.4, Phosphorus 3.8, Magnesium 1.9, Total Bilirubin 0.6, AST 18, ALT 35, Albumin 3.5 Vital Signs Date Time Temp Pulse Resp B/P B/P Pulse O2 O2 Flow FiO2 Mean Ox Delivery Rate 04/29 0937 94 Nasal 5.0L Cannula 04/29 0800 Nasal 6.0L Cannula 04/29 0715 98.2 74 24 122/60 94 BIPAP 04/29 0233 63 94 04/29 0013 69 92 04/29 0000 BIPAP 04/28 2250 90 95 04/28 2249 92 Nasal 6.0L Cannula 04/28 2225 98.4 79 18 116/64 97 04/28 1600 Nasal 2.0L Cannula 04/28 1506 98.1 86 20 93 Intake & Output 04/29 1600 04/29 0800 04/29 0000 Intake Total 360 120 Output Total 1950 700 Balance -1590 -580 Intake, Oral 360 120 Output, Urine 1950 700 Patient 381 lb Weight Assessment * COPD exacerbation; acute and chronic hypercarbic history failure due to noncompliance with CPAP * obstructive sleep apnea noncompliant with CPAP, * cor pulmonale, * [place], hypertension, * hyperlipidemia, * diabetes, * hypothyroidism, * gastric bypass surgery, * chronic lymphedema Plan * Continue prednisone taper * Change IV Lasix to oral; patient previously on 80 mg 3 times a day of Lasix by mouth; we'll check a cardiology whether this dose will be adjusted * Continue taper oxygen
--- NOTE | 2017-04-29 13:09 | PN- Diabetes ---
Assessment/Plan Diabetes Assessment: 57 y/o male morbid obese, was diagnosed with DM type 2 3-4 years ago and required insulin and oral medications. He lost approximately 150 pounds and then he didn't need to take any medication for diabetes. However, he has gradually gained 80 pounds back. He was admitted for COPD excerbation and respiratory failure. His HbA1c was 8.1%. Currently he is on prednisone 30 mg daily. Predisone will be decreased to 20 mg daily tomorrow. metformin was increased to 1000 mg twice a day. in addition, he is on januvia 100 mg daily. Novolog coverage was discontinued. His FSGs were 126 , 87 and 103. Plan: continue metfromin 1000 mg twice a day; continue Januvia 100 mg daily; continue monitor FSGs; consider changing Januvia to GLP-1 analog as outpatient to control both diabetes and weight. will follow. Plan: detail see above. Subjective Subjective: He feels okay. Objective Last 24 Hrs of Vital Signs/I&O Vital Signs Date Time Temp Pulse Resp B/P B/P Pulse O2 O2 Flow FiO2 Mean Ox Delivery Rate 04/29 0937 94 Nasal 5.0L Cannula 04/29 0800 Nasal 6.0L Cannula 04/29 0715 98.2 74 24 122/60 94 BIPAP 04/29 0233 63 94 04/29 0013 69 92 04/29 0000 BIPAP 04/28 2250 90 95 04/28 2249 92 Nasal 6.0L Cannula 04/28 2225 98.4 79 18 116/64 97 04/28 1600 Nasal 2.0L Cannula 04/28 1506 98.1 86 20 93 Intake & Output 04/29 1600 04/29 0800 04/29 0000 Intake Total 360 120 Output Total 1950 700 Balance -1590 -580 Intake, Oral 360 120 Output, Urine 1950 700 Patient 381 lb Weight Findings Pertinent Lab/Donato Results: Laboratory Tests 04/29 0708 Chemistry Sodium (137 - 145 mmol/L) 140 Potassium (3.5 - 5.1 mmol/L) 3.7 Chloride (98 - 107 mmol/L) 90 L Carbon Dioxide (22 - 30 mmol/L) 40 H Anion Gap (5 - 16) 10 BUN (9 - 20 mg/dL) 24 H Creatinine (0.7 - 1.2 mg/dL) 0.9 Estimated GFR (>60 ml/min) > 60 BUN/Creatinine Ratio (7 - 25 %) 26.7 H
[2017-04-29 15:00] VITALS: BP 112/54
[2017-04-29 23:12] VITALS: BP 120/84
[2017-04-30 07:12] VITALS: BP 120/70
--- NOTE | 2017-04-30 09:04 | PN- Pulmonary ---
Subjective HPI/Critical Care Issues: Patient feels shortness of breath is improved he continues to be oxygen dependent require nocturnal BiPAP Objective Current Medications: Current Medications Sig/Teo Start time Last Medication Dose Route Stop Time Status Admin Acetaminophen 1,000 MG Q6P PRN 04/25 2100 AC IV Acetazolamide 250 MG ONCE ONE 04/29 1130 DC 04/29 PO 04/29 1131 1215 Albuterol Sulfate 3 ML TID 04/26 1600 AC 04/30 INH 0852 Azithromycin 500 MG DAILY 04/27 1115 DC 04/29 PO 04/29 1001 0855 Budesonide/ 2 PUF BID 04/28 2200 AC 04/29 Formoterol Fumarate INH 2205 Enoxaparin Sodium 40 MG DAILY 04/26 1000 AC 04/29 SC 0902 Furosemide 80 MG TID 04/29 1600 AC 04/30 PO 0722 Furosemide 60 MG BID 04/27 2200 DC 04/29 IV 0855 Metformin HCl 1,000 MG 0800,1700 04/28 1700 AC 04/30 PO 0722 Ondansetron HCl 4 MG Q6P PRN 04/26 1545 AC IV Potassium Chloride 40 MEQ ONCE ONE 04/29 1145 DC 04/29 PO 04/29 1146 1215 Potassium Chloride 40 MEQ BID 04/27 2200 AC 04/29 PO 2204 Prednisone 10 MG DAILY 05/02 1000 AC PO 05/03 1001 Prednisone 20 MG DAILY 04/30 1000 AC PO 05/01 1001 Prednisone 30 MG DAILY 04/29 1000 DC 04/29 PO 04/29 1001 0855 Sitagliptin Phosphate 100 MG DAILY 04/27 1112 AC 04/29 PO 0854 Tiotropium [place] 1 PUF DAILY 04/27 1115 AC 04/29 INH 0902 Vital Signs & I&O Last 24 Hrs of Vitals and I&O: Vital Signs Date Time Temp Pulse Resp B/P B/P Pulse O2 O2 Flow FiO2 Mean Ox Delivery Rate 04/30 0856 98 Nasal 5.0L Cannula 04/30 0800 Nasal 6.0L Cannula 04/30 0712 97.9 63 20 120/70 98 BIPAP 04/30 0033 62 94 04/30 0000 95 CPAP 04/29 2312 97.8 72 16 120/84 96 04/29 2301 78 94 04/29 2115 91 Nasal 5.0L Cannula 04/29 1500 98.4 81 18 112/54 92 BIPAP 04/29 0937 94 Nasal 5.0L Cannula Intake & Output 04/30 1600 04/30 0800 04/30 0000 Intake Total 200 760 Output Total 1250 2800 Balance -105 -0 Intake, Oral 200 760 Number 1 Bowel Movements Output, Urine 1250 2800 Patient 378 lb Weight Oxygen saturation 5 L 98% exam of his chest shows diminished breath sounds are no wheezes cardiac exam shows a normal S1 and S2 without murmurs his extremities show chronic venous stasis changes but decreased edema Impression/Plan Impression/Plan Impression/Plan: 57-year-old gentleman with presumed COPD severe sleep apnea minute with right sided congestive heart failure and acute on chronic hypercapnic respiratory failure. He is improved though has a combination of post hypercapnic and contraction metabolic alkalosis Recommendations: Continue negative fluid balance. Obtain potassium of at least 4. Diamox 250 mg IV 1 dose after potassium has been repleted. Taper FiO2
--- NOTE | 2017-04-30 09:13 | PN- Housestaff ---
Subjective Follow-up For: Acute respiratory failure secondary to COPD Diabetes Tele-Events Since Last Visit: NSR 6438 PAC/PVC Subjective: No acute events overnight. States shortness of breath improved. Tolerated BiPAP without any issues. Review of Systems Constitutional: Reports: see HPI. Objective Last 24 Hrs of Vital Signs/I&O Vital Signs Date Time Temp Pulse Resp B/P B/P Pulse O2 O2 Flow FiO2 Mean Ox Delivery Rate 04/30 0856 92 Nasal 5.0L Cannula 04/30 0800 Nasal 6.0L Cannula 04/30 0712 97.9 63 20 120/70 98 BIPAP 04/30 0033 62 94 04/30 0000 95 CPAP 04/29 2312 97.8 72 16 120/84 96 04/29 2301 78 94 04/29 2115 91 Nasal 5.0L Cannula Intake & Output 04/30 1600 04/30 0800 04/30 0000 Intake Total 730 200 760 Output Total 1100 1250 2800 Balance -370 -1050 -2040 Intake, IV 10 Intake, Oral 720 200 760 Number 1 1 Bowel Movements Output, Urine 1100 1250 2800 Patient 378 lb Weight Physical Exam General Appearance: Alert, Oriented X3, Cooperative, No Acute Distress HEENT: PERRLA Cardiovascular: PAC Lungs: diffuse crackles Abdomen: Normal Bowel Sounds, distended abd Extremities: 1+ lower extremity edema Vascular: 2+ radial pulses Current Medications: Current Medications Sig/Teo Start time Last Medication Dose Route Stop Time Status Admin Acetaminophen 1,000 MG Q6P PRN 04/25 2100 AC IV Acetazolamide 250 MG ONCE ONE 04/30 1045 DC 04/30 PO 04/30 1046 1148 Albuterol Sulfate 3 ML TID 04/26 1600 AC 04/30 INH 1403 Budesonide/ 2 PUF BID 04/28 2200 AC 04/30 Formoterol Fumarate INH 1004 Enoxaparin Sodium 40 MG DAILY 04/26 1000 AC 04/30 SC 1003 Furosemide 80 MG 0700,1300,1900 04/30 1300 AC 04/30 PO 1301 Furosemide 80 MG TID 04/29 1600 DC 04/30 PO 0722 Loperamide HCl 2 MG Q6P PRN 04/30 1400 AC 04/30 PO 1351 Metformin HCl 1,000 MG 0800,1700 04/28 1700 AC 04/30 PO 0722 Ondansetron HCl 4 MG Q6P PRN 04/26 1545 AC IV Potassium Chloride 40 MEQ ONCE ONE 04/30 1045 DC 04/30 PO 04/30 1046 1148 Potassium Chloride 40 MEQ BID 04/27 2200 AC 04/30 PO 1003 Prednisone 10 MG DAILY 05/02 1000 AC PO 05/03 1001 Prednisone 20 MG DAILY 04/30 1000 AC 04/30 PO 05/01 1001 1003 Sitagliptin Phosphate 100 MG DAILY 04/27 1112 AC 04/30 PO 1003 Tiotropium [place] 1 PUF DAILY 04/27 1115 AC 04/30 INH 1006 Last 24 Hrs of Lab/Donato Results Last 24 Hrs of Labs/Mics: Laboratory Tests 04/30/17 0635: Anion Gap 6, Estimated GFR > 60, BUN/Creatinine Ratio 22.0 Microbiology 04/29 1900 STOOL: Clostridium difficile Toxin A & B - COMP Assessment/Plan Assessment: Assessment: 57-year-old male with past history of COPD, obstructive sleep apnea noncompliant with CPAP, cor pulmonale, [place], hypertension, hyperlipidemia, diabetes, hypothyroidism, gastric bypass surgery, chronic lymphedema presenting for acute on chronic hypercarbic respiratory failure secondary to COPD initially admitted to the ICU and new onset diabetes. #Acute on chronic hypoxic hypercarbic respiratory failure, secondary to COPD exacerbation, acute bronchitis Patient's clinical picture, lab values, and a fairly benign chest x-ray is suggestive of acute bronchitis that exacerbated his COPD and landed up in acute respiratory failure as shown by the ABG. He received BiPAP treatments originally ICU, and is now saturating well on nasal cannula. Lower extremity Dopplers were negative for DVT. * Completed 5 day course of azithromycin * Continue by mouth steroid taper * Continue TRC/nebs and BiPAP * Continue by mouth Lasix * Follow Sputum culture * Patient will be discharged with nicotine gum * Follow pulmonology and cardiology recommendations #Diabetes mellitus Patient's previous HbA1c levels were consistently high but although the patient had not accepted the diagnosis yet, according to the discussions with the patient himself and his PCP Orion Nicole MD. We had a conversation about the condition yesterday at length, and he agreed to continue diabetes care and would further follow-up with his PCP. * Hemoglobin A1c 8.3, albumin 3.4 * Diabetic diet, Encourage protein supplementation * Continue januvia and Metformin per endocrinology recommendations. * Continue to follow endocrinology recommendations * Discharge with GLP-1 analog #Cardiology recs: Followed troponin x2 <.01, EKG to rule out ACS, and continuing diuresis. Echo results were limited by body habitus, but showed LV 60-65%, with physiologic pericardial effusion, and mild diastolic dysfunction was noted among other findings. * Continue follow cardiology recommendations as stated above #DVT ppx:SQ Lovenox #Code status: Full code Problem List: 1. Diabetes mellitus Pain Ratin Pain Location: none Pain Goal: Pain 4 or less Pain Plan: pain pathway Tomorrow's Labs & Rationales: cbc bep
--- NOTE | 2017-04-30 12:17 | PN- Att Addend ---
Attending Addendum Attending Brief Note Patient seen and examined. Plan of care discussed with the medical team and the patient. Available lab work and radiology test reports were reviewed. Patient denies any difficulty breathing. He denies any chest pain or fever. Is able to ambulate within the room without getting short of breath. There has been no significant change since yesterday. Exam: General: Patient awake alert oriented without any distress; patient is obese CVS: S1 plus S2 without any murmur or gallops Chest: scattered crepitation without any wheeze. There is no respiratory distress. Abdomen: Soft non-tender, bowel sound present, no guarding or rebound CLINICAL REVIEW NURSE: Awake alert oriented without any focal neuro deficit and follows commands appropriately Extremities: 4+ bilateral edema discoloration of both lower extremities; no clubbing or cyanosis noted Assessment * COPD exacerbation; acute and chronic hypercarbic history failure due to noncompliance with CPAP- patient to requiring 5-6 L oxygen * obstructive sleep apnea noncompliant with CPAP, * cor pulmonale, * [place], hypertension, * hyperlipidemia, * diabetes, * hypothyroidism, * gastric bypass surgery, * chronic lymphedema Plan * Continue prednisone taper * Continue Lasix 80 mg 3 times a day by mouth; we'll check a cardiology whether this dose will be adjusted * Elevate legs while resting * Continue taper oxygen Current Medications Sig/Teo Start time Last Medication Dose Route Stop Time Status Admin Acetaminophen 1,000 MG Q6P PRN 04/25 2100 AC IV Acetazolamide 250 MG ONCE ONE 04/30 1045 DC 04/30 PO 04/30 1046 1148 Albuterol Sulfate 3 ML TID 04/26 1600 AC 04/30 INH 0852 Budesonide/ 2 PUF BID 04/28 2200 AC 04/30 Formoterol Fumarate INH 1004 Enoxaparin Sodium 40 MG DAILY 04/26 1000 AC 04/30 SC 1003 Furosemide 80 MG 0700,1300,1900 04/30 1300 AC PO Furosemide 80 MG TID 04/29 1600 DC 04/30 PO 0722 Furosemide 60 MG BID 04/27 2200 DC 04/29 IV 0855 Metformin HCl 1,000 MG 0800,1700 04/28 1700 AC 04/30 PO 0722 Ondansetron HCl 4 MG Q6P PRN 04/26 1545 AC IV Potassium Chloride 40 MEQ ONCE ONE 04/30 1045 DC 04/30 PO 04/30 1046 1148 Potassium Chloride 40 MEQ BID 04/27 2200 AC 04/30 PO 1003 Prednisone 10 MG DAILY 05/02 1000 AC PO 05/03 1001 Prednisone 20 MG DAILY 04/30 1000 AC 04/30 PO 05/01 1001 1003 Sitagliptin Phosphate 100 MG DAILY 04/27 1112 AC 04/30 PO 1003 Tiotropium [place] 1 PUF DAILY 04/27 1115 AC 04/30 INH 1006 Laboratory Tests 04/30/17 0635: Anion Gap 6, Estimated GFR > 60, BUN/Creatinine Ratio 22.0 04/29/17 0708: Anion Gap 10, Estimated GFR > 60, BUN/Creatinine Ratio 26.7 H 04/28/17 0610: Anion Gap 8, Estimated GFR > 60, BUN/Creatinine Ratio 33.3 H, CBC w Diff NO MAN DIFF REQ, RBC 5.30, MCV 95.1 H, MCH 30.3, MCHC 31.8 L, RDW 16.6 H, MPV 7.3 L , Gran % 67.6, Lymphocytes % 22.8, Monocytes % 8.8, Eosinophils % 0.5, Basophils % 0.3, Absolute Granulocytes 6.6 H, Absolute Lymphocytes 2.2, Absolute Monocytes 0.9 H, Absolute Eosinophils 0, Absolute Basophils 0 Microbiology 04/29 1900 STOOL: Clostridium difficile Toxin A & B - RECD Vital Signs Date Time Temp Pulse Resp B/P B/P Pulse O2 O2 Flow FiO2 Mean Ox Delivery Rate 04/30 0856 92 Nasal 5.0L Cannula 04/30 0800 Nasal 6.0L Cannula 04/30 0712 97.9 63 20 120/70 98 BIPAP 04/30 0033 62 94 04/30 0000 95 CPAP 04/29 2312 97.8 72 16 120/84 96 04/29 2301 78 94 04/29 2115 91 Nasal 5.0L Cannula 04/29 1500 98.4 81 18 112/54 92 BIPAP Intake & Output 04/30 1600 04/30 0800 04/30 0000 Intake Total 200 760 Output Total 1250 2800 Balance -1050 -2040 Intake, Oral 200 760 Number 1 Bowel Movements Output, Urine 1250 2800 Patient 378 lb Weight
--- NOTE | 2017-04-30 12:26 | PN- Diabetes ---
Assessment/Plan Diabetes Assessment: 57 y/o male morbid obese, was diagnosed with DM type 2 3-4 years ago and required insulin and oral medications. He lost approximately 150 pounds and then he didn't need to take any medication for diabetes. However, he has gradually gained 80 pounds back. He was admitted for COPD excerbation and respiratory failure. His HbA1c was 8.1%. He was on prednisone 30 mg daily. Predisone will be decreased to 20 mg daily today. metformin was increased to 1000 mg twice a day. in addition, he is on januvia 100 mg daily. Novolog coverage was discontinued. His FSGs were 87, 103, 138, 169, 131 and 115. Plan: continue metfromin 1000 mg twice a day; continue Januvia 100 mg daily; continue monitor FSGs; consider changing Januvia to GLP-1 analog as outpatient to control both diabetes and weight. f/u in office after discharge. Plan: see above Subjective Subjective: He feels okay. Objective Last 24 Hrs of Vital Signs/I&O Vital Signs Date Time Temp Pulse Resp B/P B/P Pulse O2 O2 Flow FiO2 Mean Ox Delivery Rate 04/30 0856 92 Nasal 5.0L Cannula 04/30 0800 Nasal 6.0L Cannula 04/30 0712 97.9 63 20 120/70 98 BIPAP 04/30 0033 62 94 04/30 0000 95 CPAP 04/29 2312 97.8 72 16 120/84 96 04/29 2301 78 94 04/29 2115 91 Nasal 5.0L Cannula 04/29 1500 98.4 81 18 112/54 92 BIPAP Intake & Output 04/30 1600 04/30 0800 04/30 0000 Intake Total 200 760 Output Total 1250 2800 Balance -1050 -2040 Intake, Oral 200 760 Number 1 Bowel Movements Output, Urine 1250 2800 Patient 378 lb Weight Findings Pertinent Lab/Donato Results: Laboratory Tests 04/30 0635 Chemistry Sodium (137 - 145 mmol/L) 138 Potassium (3.5 - 5.1 mmol/L) 3.5 Chloride (98 - 107 mmol/L) 92 L Carbon Dioxide (22 - 30 mmol/L) 40 H Anion Gap (5 - 16) 6 BUN (9 - 20 mg/dL) 22 H Creatinine (0.7 - 1.2 mg/dL) 1.0 Estimated GFR (>60 ml/min) > 60 BUN/Creatinine Ratio (7 - 25 %) 22.0
[2017-04-30 15:05] VITALS: BP 118/68
[2017-04-30 22:31] VITALS: BP 104/58
[2017-05-01 06:00] VITALS: BP 100/64
--- NOTE | 2017-05-01 07:32 | PN- Housestaff ---
Jamari PALM,[facility] 05/01/17 0732: Subjective Follow-up For: Acute respiratory failure secondary to COPD CHF Diabetes Tele-Events Since Last Visit: NSR PAC HR 6884 Subjective: No acute events overnight. Patient used CPAP without any issues. States no oxygen at home at baseline. Continues to be on 4 L. Breathing better. Continues to have diarrhea with negative C. difficile. Review of Systems Constitutional: Reports: see HPI. Objective Last 24 Hrs of Vital Signs/I&O Vital Signs Date Time Temp Pulse Resp B/P B/P Pulse O2 O2 Flow FiO2 Mean Ox Delivery Rate 05/01 1535 98.7 88 18 104/64 92 05/01 0841 93 Nasal 4.0L Cannula 05/01 0800 93 Nasal 4.0L Cannula 05/01 0600 98.9 76 18 100/64 92 05/01 0006 66 94 05/01 0000 95 CPAP 04/30 2231 97.0 76 18 104/58 95 04/30 2223 74 92 04/30 2050 96 Nasal 5.0L Cannula Intake & Output 05/01 1600 05/01 0800 05/01 0000 Intake Total 780 1122 Output Total 325 1750 Balance 780 -325 -628 Intake, Oral 780 1122 Output, Urine 325 1750 Patient 370 lb Weight Physical Exam General Appearance: Alert, Oriented X3, Cooperative, No Acute Distress Cardiovascular: Regular Rate, Normal S1, Normal S2 Lungs: basilar crackles, diffuse decreased improvement Abdomen: tense distended abdomen Extremities: 2+ lower extremity edema, b/l lower extremity dry skin and chronic venous stasis changes Vascular: 2+ radial pulses Assessment/Plan Assessment: 57-year-old male with past history of COPD, obstructive sleep apnea noncompliant with CPAP, cor pulmonale, [place], hypertension, hyperlipidemia, diabetes, hypothyroidism, gastric bypass surgery, chronic lymphedema presenting for acute on chronic hypercarbic respiratory failure secondary to COPD initially admitted to the ICU and new onset diabetes. #Acute on chronic hypoxic hypercarbic respiratory failure 2/2 COPD, CHF, acute bronchitis Patient's clinical picture, lab values, and a fairly benign chest x-ray is suggestive of acute bronchitis that exacerbated his COPD and landed up in acute respiratory failure as shown by the ABG. He received BiPAP treatments originally ICU, and is now saturating well on nasal cannula. Lower extremity Dopplers were negative for DVT. * Completed 5 day course of azithromycin * Monitor potassium, keep above 4 * Continue by mouth steroid taper, cont spiriva, symbicort * Continue TRC/nebs at night bipap * Continue by mouth Lasix 80TID, patient refused 100 BID dosing * Follow Sputum culture if possible * Patient will be discharged with nicotine gum * Follow pulmonology and cardiology recommendations #Mild leukocytosis -Patient afebrile,cont to monitor. Most likely secondary to steroids. #Diabetes mellitus Patient's previous HbA1c levels were consistently high but although the patient had not accepted the diagnosis yet, according to the discussions with the patient himself and his PCP Orion Nicole MD. We had a conversation about the condition yesterday at length, and he agreed to continue diabetes care and would further follow-up with his PCP. * Hemoglobin A1c 8.3, albumin 3.4 * Diabetic diet, Encourage protein supplementation * Continue januvia and Metformin per endocrinology recommendations. * Continue to follow endocrinology recommendations * Discharge with GLP-1 analog #Cardiology recs: Followed troponin x2 <.01, EKG to rule out ACS, and continuing diuresis. Echo results were limited by body habitus, but showed LV 60-65%, with physiologic pericardial effusion, and mild diastolic dysfunction was noted among other findings. * Continue follow cardiology recommendations #DVT ppx:SQ Lovenox #Code status: Full code Problem List: 1. Diabetes mellitus 2. Congestive heart failure 3. COPD (chronic obstructive pulmonary disease) 4. Hypercapnic respiratory failure Pain Ratin Pain Location: none Pain Goal: Pain 4 or less Pain Plan: pain pathway Tomorrow's Labs & Rationales: rolando Nolasco MD,[facility] 05/01/17 1330: Attending MD Review Statement Attending Statement Attending MD Statement: examined this patient, discuss w/resident/PA/VOUCHER CLERK, agreed w/resident/PA/VOUCHER CLERK, reviewed EMR data (avail), discussed with nursing, discussed with case mgmt Attending Assessment/Plan: This is a very complex 57-year-old male with multiple medical problems including diabetes, gastric bypass, COPD, obstructive sleep apnea. He is here with acute hypoxic respiratory failure and we are also treating congestive heart failure. Currently he is on Lasix and we are giving 80 mg 3 times a day, we are going to give him the equivalent dose twice a day. He is on a prednisone taper- he has 2 more days left to finish that. He is on metformin for DM and potassium replacement. His O2 requirement is 4 L and given the significant polycythemia and hypoxia he clearly needs oxygen and he also needs CPAP. Patient is not compliant and is ?difficult for him to use this at home. I am reluctant to discharge him home without oxygen being setup and obstructive sleep apnea CPAP treatment being set up given his significant comorbidities.
[2017-05-01 07:55] LABS: ABSOLUTE BASOPHIL COUNT 0 /CUMM (0.0-0.2); ABSOLUTE EOSINOPHIL COUNT 0.2 /CUMM (0.0-0.7); ABSOLUTE GRANULOCYTE CT 8.5 /CUMM (1.4-6.5); ABSOLUTE LYMPH COUNT 1.9 /CUMM (1.2-3.4); ABSOLUTE MONOCYTE COUNT 0.8 /CUMM (0.10-0.60); BASOPHIL % 0.3 % (0.0-2.0); GRANULOCYTE % 74.1 % (42.2-75.2); HEMATOCRIT 50.8 % (42-52); MEAN CORPUSCULAR HGB 30.1 PG (27.0-31.0); MEAN CORPUSCULAR VOLUME 94.2 FL (80.0-94.0); MEAN PLATELET VOLUME 7.5 FL (7.4-10.4); PLATELET COUNT 180 /CUMM (130-400); RBC DISTRIBUTION WIDTH 16.3 % (11.5-14.5); RED BLOOD CELL CT 5.39 /CUMM (4.70-6.10); WHITE BLOOD CELL COUNT 11.4 /CUMM (4.8-10.8)
--- NOTE | 2017-05-01 09:24 | PN- Pulmonary ---
Subjective HPI/Critical Care Issues: Continued on cpap at hs On 4 litres Objective Current Medications: Current Medications Sig/Teo Start time Last Medication Dose Route Stop Time Status Admin Acetaminophen 1,000 MG Q6P PRN 04/25 2100 AC IV Acetazolamide 250 MG ONCE ONE 04/30 1045 DC 04/30 PO 04/30 1046 1148 Albuterol Sulfate 3 ML TID 04/26 1600 AC 05/01 INH 0832 Budesonide/ 2 PUF BID 04/28 2200 AC 04/30 Formoterol Fumarate INH 2115 Enoxaparin Sodium 40 MG DAILY 04/26 1000 AC 04/30 SC 1003 Furosemide 80 MG 0700,1300,1900 04/30 1300 AC 05/01 PO 0709 Furosemide 80 MG TID 04/29 1600 DC 04/30 PO 0722 Loperamide HCl 2 MG Q6P PRN 04/30 1400 AC 04/30 PO 1938 Metformin HCl 1,000 MG 0800,1700 04/28 1700 AC 05/01 PO 0709 Ondansetron HCl 4 MG Q6P PRN 04/26 1545 AC IV Potassium Chloride 40 MEQ ONCE ONE 04/30 1045 DC 04/30 PO 04/30 1046 1148 Potassium Chloride 40 MEQ BID 04/27 2200 AC 04/30 PO 1937 Prednisone 10 MG DAILY 05/02 1000 AC PO 05/03 1001 Prednisone 20 MG DAILY 04/30 1000 AC 04/30 PO 05/01 1001 1003 Sitagliptin Phosphate 100 MG DAILY 04/27 1112 AC 04/30 PO 1003 Tiotropium [place] 1 PUF DAILY 04/27 1115 AC 04/30 INH 1006 Vital Signs & I&O Last 24 Hrs of Vitals and I&O: Vital Signs Date Time Temp Pulse Resp B/P B/P Pulse O2 O2 Flow FiO2 Mean Ox Delivery Rate 05/01 0841 93 Nasal 4.0L Cannula 05/01 0600 98.9 76 18 100/64 92 05/01 0006 66 94 05/01 0000 95 CPAP 04/30 2230 97.0 76 18 104/58 95 04/30 2223 74 92 04/300 96 Nasal 5.0L Cannula 04/30 1505 97.9 80 18 118/68 96 Nasal 5.0L Cannula Intake & Output 05/01 1600 05/01 0800 05/01 0000 Intake Total 1122 Output Total 325 1750 Balance -325 -628 Intake, Oral 1122 Output, Urine 325 1750 Patient 370 lb Weight Laboratory Tests 05/01 04/30 0623 0635 Chemistry Sodium (137 - 145 mmol/L) 139 138 Potassium (3.5 - 5.1 mmol/L) 4.2 3.5 Chloride (98 - 107 mmol/L) 92 L 92 L Carbon Dioxide (22 - 30 mmol/L) 37 H 40 H Anion Gap (5 - 16) 10 6 BUN (9 - 20 mg/dL) 24 H 22 H Creatinine (0.7 - 1.2 mg/dL) 0.9 1.0 Estimated GFR (>60 ml/min) > 60 > 60 BUN/Creatinine Ratio (7 - 25 %) 26.7 H 22.0 Hematology CBC w Diff NO MAN DIFF REQ WBC (4.8 - 10.8 /CUMM) 11.4 H RBC (4.70 - 6.10 /CUMM) 5.39 Hgb (14.0 - 18.0 G/DL) 16.2 Hct (42 - 52 %) 50.8 MCV (80.0 - 94.0 FL) 94.2 H MCH (27.0 - 31.0 PG) 30.1 MCHC (33.0 - 37.0 G/DL) 32.0 L RDW (11.5 - 14.5 %) 16.3 H Plt Count (130 - 400 /CUMM) 180 MPV (7.4 - 10.4 FL) 7.5 Gran % (42.2 - 75.2 %) 74.1 Lymphocytes % (20.5 - 51.1 %) 16.3 L Monocytes % (1.7 - 9.3 %) 7.3 Eosinophils % (0 - 5 %) 2.0 Basophils % (0.0 - 2.0 %) 0.3 Absolute Granulocytes (1.4 - 6.5 /CUMM) 8.5 H Absolute Lymphocytes (1.2 - 3.4 /CUMM) 1.9 Absolute Monocytes (0.10 - 0.60 /CUMM) 0.8 H Absolute Eosinophils (0.0 - 0.7 /CUMM) 0.2 Absolute Basophils (0.0 - 0.2 /CUMM) 0 Microbiology Date/Time Procedure - Status Source Growth 04/29 1899 Clostridium difficile Toxin A & B - COMP STOOL Impression/Plan Impression/Plan Impression/Plan: General Appearancepoff cpap A/A/O x 3 Skin No Rashes, No Breakdown, No Significant Lesion Skin Temp/Moisture Exam: Warm/Dry Sepsis Skin Exam (color): Normal for Ethnicity HEENT Atraumatic, PERRLA, EOMI, Mucous Membr. moist/pink Neck Supple, No JVD Cardiovascular Regular Rate, Normal S1, Normal S2, No Murmurs Lungs Clear to Auscultation, Diminished airflow in all lung garcia with scattered rhonchi anteriorly, no wheezing or crackles Abdomen Normal Bowel Sounds, Soft, No Tenderness, No Hepatospenomegaly, No Masses Neurological Somnolent, AAOx0, follows simple commands Extremities No Clubbing, No Cyanosis, No Edema, Normal Pulses, No Tenderness/ Swelling, 4+ bilateral lower extremity swelling with severe scaling, no open wounds Vascular Normal Pulses, Pulses Symmetrical IMPRESSION This is a gentleman with severe morbid obesity with previous gastric sleeve surgery which had initially worked but now has put on sig weight, very severe obstructive sleep apnea with previous cor pulmonale right more than left heart dysfunction in the past, moderate COPD, significant smoking history more than [id number] smoker now smokes more than 1 packs a day, noncompliant with CPAP management, diabetes history, hypertension, hyperlipidemia, history of hypothyroidism, previous admission to this hospital for biventricular heart failure respiratory failure and cor pulmonale, chronic lymphedema of both legs, chronic dermatitis of his leg with lymphedema, previous history of recurrent cellulitis and lymphadenopathy in the groin now comes in with * Resolved Acute on chronic Hypercarbic resp failure due to noncompliance with cpap * Improving Acute corpulmonale with rt heart failure * 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 packs a day smoker) * Sig copd with Acute bronchitis now better * Morbid obesity * Severe TAN and not compliant with cpap * DM and hypothryoid on meds at home * Chronic lymphedema of both lower ext REC/PLAN CPAP at 12 upon dc Keep HOB up Cont lasix but reduce it to bid and last dose should be taken at 2 pm (he does not use cpap due to frequent urination at night) (Can use a higher dose bid) Keep potassium above 4 Wean off steroids in 2 days Cont nebs atc start spiriva one puff daily Symbicort bid Wean oxygen and keep sat at 92 Pt needs home oxygen Cont lovenox Pt counselled about his cpap use and wt loss and he understands risks and benefits of rx PT needs to use cpap at hs and to continue oxygen aswell with cpap
--- NOTE | 2017-05-01 12:32 | PN- Cardiology ---
Subjective Subjective: stable without change Objective Vital Signs and I&Os Vital Signs Date Time Temp Pulse Resp B/P B/P Pulse O2 O2 Flow FiO2 Mean Ox Delivery Rate 05/01 0841 93 Nasal 4.0L Cannula 05/01 0800 93 Nasal 4.0L Cannula 05/01 0600 98.9 76 18 100/64 92 05/01 0006 66 94 05/01 0000 95 CPAP 04/30 2231 97.0 76 18 104/58 95 04/30 2223 74 92 04/30 2050 96 Nasal 5.0L Cannula 04/30 1505 97.9 80 18 118/68 96 Nasal 5.0L Cannula Intake & Output 05/01 1600 05/01 0800 05/01 0000 04/30 1600 04/30 0800 04/30 0000 Intake Total 1122 730 200 760 Output Total 325 1750 1100 1250 2800 Balance -325 -628 -370 -1050 -2040 Intake, IV 10 Intake, Oral 1122 720 200 760 Number 1 1 Bowel Movements Output, Urine 325 1750 1100 1250 2800 Patient 370 lb 378 lb Weight Physical Exam: Gen: NAD HEENT: normal Lungs: clear to auscultation, normal resp. effort Heart: RRR, S1, S2, no murmurs Abdomen: Soft, nontender, no masses Extremities: No clubbing, cyanosis, or edema. Neuro: Alert and oriented x 3, cranial nerves intact Current Medications: Current Medications Sig/Teo Start time Last Medication Dose Route Stop Time Status Admin Acetaminophen 1,000 MG Q6P PRN 04/25 2100 AC IV Albuterol Sulfate 3 ML TID 04/26 1600 AC 05/01 INH 0832 Budesonide/ 2 PUF BID 04/28 220 AC 05/01 Formoterol Fumarate INH 1016 Enoxaparin Sodium 40 MG DAILY 04/26 1000 AC 05/01 SC 1015 Furosemide 100 MG 0730,1400 05/01 1400 AC PO Furosemide 80 MG 0700,1300,1900 04/30 1300 DC 05/01 PO 0709 Loperamide HCl 2 MG Q6P PRN 04/30 1400 AC 04/30 PO 1938 Metformin HCl 1,000 MG 0800,1700 04/28 1700 AC 05/01 PO 0709 Ondansetron HCl 4 MG Q6P PRN 04/26 1545 AC IV Potassium Chloride 40 MEQ BID 04/27 2199 AC 05/01 PO 1016 Prednisone 10 MG DAILY 05/02 1000 AC PO 05/03 1001 Prednisone 20 MG DAILY 04/30 1000 DC 05/01 PO 05/01 1001 1015 Sitagliptin Phosphate 100 MG DAILY 04/27 1112 AC 05/01 PO 1016 Tiotropium [place] 1 PUF DAILY 04/27 1115 AC 05/01 INH 1015 Results Last 48 Hrs of Labs/Mics: Laboratory Tests 05/01/17 0623: Anion Gap 10, Estimated GFR > 60, BUN/Creatinine Ratio 26.7 H, CBC w Diff NO MAN DIFF REQ, RBC 5.39, MCV 94.2 H, MCH 30.1, MCHC 32.0 L, RDW 16.3 H, MPV 7.5, Gran % 74.1, Lymphocytes % 16.3 L, Monocytes % 7.3, Eosinophils % 2.0, Basophils % 0.3, Absolute Granulocytes 8.5 H, Absolute Lymphocytes 1.9, Absolute Monocytes 0.8 H, Absolute Eosinophils 0.2, Absolute Basophils 0 04/30/17 0635: Anion Gap 6, Estimated GFR > 60, BUN/Creatinine Ratio 22.0 Microbiology 04/29 1900 STOOL: Clostridium difficile Toxin A & B - COMP Assessment/Plan Assessment/Plan Assessment: 1. Acute on chronic hypoxic/hypercapnic respiratory failure 2. COPD exacerbation 3. Reported history of cor pulmonale 4. History of prior myocardial infarction 5. Obstructive sleep apnea, noncompliant with CPAP 6. Hypothyroidism 7. Hypertension 8. Hyperlipidemia 9. Diabetes 10. chronic lower extremity edema/lymphedema 11. Obesity Plan: * Patient might benefit from complex physical therapy with treatment aimed at improving lymphedema with manual lymphatic drainage, massage, and exercise. * Will defer to Pulmonology and medical team regarding diuretic use and dosing since patient does not have clinical signs of acute decompensated CHF, his edema is mostly lymphatic and nonpitting. * Monitor input and output while on diuretic theray * Discussed plan with cardiology attending, formal attending addendum/note to follow Continue telemetry? No
[2017-05-01] MEDS ORDERED: PREDNISONE10 M2 PO (13:13)
[2017-05-01] MEDS ORDERED: SYMBICORT 80-10.2 GM INH (13:15)
[2017-05-01 15:35] VITALS: BP 104/64
[2017-05-01 21:47] VITALS: BP 116/60
[2017-05-02 07:02] VITALS: BP 104/62
--- NOTE | 2017-05-02 08:17 | PN- Housestaff ---
Jamari PALM,[facility] 05/02/17 0817: Subjective Follow-up For: Acute respiratory failure secondary to COPD CHF Diabetes Tele-Events Since Last Visit: NSR 6682 PAC Junctional beats Subjective: No acute events overnight. Patient states no shortness of breath despite decreasing from 4 to 3L o2. States he tolerated CPAP. Review of Systems Constitutional: Reports: see HPI. Objective Last 24 Hrs of Vital Signs/I&O Vital Signs Date Time Temp Pulse Resp B/P B/P Pulse O2 O2 Flow FiO2 Mean Ox Delivery Rate 05/02 0818 93 Nasal 3.0L Cannula 05/02 0702 98.0 72 18 104/62 92 Nasal Cannula 05/02 0031 74 94 05/01 2242 Nasal 4.0L Cannula 05/01 2147 98.6 78 18 116/60 93 Nasal 4.0L Cannula 05/01 1918 95 Nasal 4.0L Cannula 05/01 1900 91 Room Air 05/01 1900 81 Nasal Cannula 05/01 1900 95 Nasal 4.0L Cannula 05/01 1900 93 Nasal 4.0L Cannula 05/01 1535 98.7 88 18 104/64 92 Intake & Output 05/02 1600 05/02 0800 05/02 0000 Intake Total 480 240 Output Total 800 700 Balance -320 -460 Intake, Oral 480 240 Number 0 Bowel Movements Output, Urine 800 700 Patient 372 lb Weight Weight Bed scale Measurement Method Physical Exam General Appearance: Alert, Oriented X3, Cooperative, No Acute Distress Cardiovascular: Regular Rate Lungs: basilar crackles Abdomen: Normal Bowel Sounds, Soft, No Tenderness Extremities: 3+ left lower extremity edema, right 2+ lower extremity, left lower extremity larger than right. Patient states this is chronic, anterior LE dryness and chronic stasis changes Vascular: 2+ radial pulses Current Medications: Current Medications Sig/Teo Start time Last Medication Dose Route Stop Time Status Admin Acetaminophen 1,000 MG Q6P PRN 04/25 2100 AC IV Albuterol Sulfate 3 ML TID 04/26 1600 AC 05/02 INH 0817 Budesonide/ 2 PUF BID 04/28 2200 AC 05/02 Formoterol Fumarate INH 0912 Enoxaparin Sodium 40 MG DAILY 04/26 1000 AC 05/02 SC 0914 Furosemide 80 MG 7:30 AM, & 4:30 PM 05/02 0730 AC 05/02 PO 0757 Furosemide 80 MG 0700,1300,1900 05/01 1900 DC 05/01 PO 1814 Furosemide 100 MG 0730,1400 05/01 1400 DC 05/01 PO 1356 Furosemide 80 MG 0700,1300,1900 04/30 1300 DC 05/01 PO 0709 Loperamide HCl 2 MG Q6P PRN 04/30 1400 AC 05/01 PO 2335 Metformin HCl 1,000 MG 0800,1700 04/28 1700 AC 05/02 PO 0758 Ondansetron HCl 4 MG Q6P PRN 04/26 1545 AC IV Potassium Chloride 40 MEQ ONCE ONE 05/02 0845 DC 05/02 PO 05/02 0846 0913 Potassium Chloride 40 MEQ BID 04/27 2200 AC 05/02 PO 0913 Prednisone 10 MG DAILY 05/02 1000 AC 05/02 PO 05/03 1001 0914 Sitagliptin Phosphate 100 MG DAILY 04/27 1112 AC 05/02 PO 0914 Tiotropium [place] 1 PUF DAILY 04/27 1115 AC 05/02 INH 0912 Last 24 Hrs of Lab/Donato Results Last 24 Hrs of Labs/Mics: Laboratory Tests 05/02/17 0642: Anion Gap 9, Estimated GFR > 60, BUN/Creatinine Ratio 22.2 Assessment/Plan Assessment: A: 57-year-old male with past history of COPD, obstructive sleep apnea noncompliant with CPAP, cor pulmonale, [place], hypertension, hyperlipidemia, diabetes, hypothyroidism, gastric bypass surgery, chronic lymphedema presenting for acute on chronic hypercarbic respiratory failure secondary to COPD initially admitted to the ICU and new onset diabetes. P: #Acute on chronic hypoxic hypercarbic respiratory failure 2/2 COPD, CHF, acute bronchitis Patient's clinical picture, lab values, and a fairly benign chest x-ray is suggestive of acute bronchitis that exacerbated his COPD and landed up in acute respiratory failure as shown by the ABG. He received BiPAP treatments originally ICU, and is now saturating well on nasal cannula. Lower extremity Dopplers were negative for DVT. * Continue by mouth Lasix 80TID, patient refused 100 BID dosing. Will discuss with patient regarding optimization of timings for lasix based on his needs. * added slow mg to help with possible cramps 2/2 lasix * Completed 5 day course of azithromycin * Monitor potassium, keep above 4 * Continue by mouth steroid taper, cont spiriva, symbicort * Continue TRC/nebs at night cpap * Follow Sputum culture if possible * Patient will be discharged with nicotine gum and cpap * Follow pulmonology and cardiology recommendations * pt should f/u with chf clinic upon discharge * Patient does not want oxygen upon discharge #Mild leukocytosis -Patient afebrile,cont to monitor. Most likely secondary to steroids. #Diabetes mellitus Patient's previous HbA1c levels were consistently high but although the patient had not accepted the diagnosis yet, according to the discussions with the patient himself and his PCP Orion Nicole MD. We had a conversation about the condition yesterday at length, and he agreed to continue diabetes care and would further follow-up with his PCP. * Hemoglobin A1c 8.3, albumin 3.4 * Diabetic diet, Encourage protein supplementation * Continue januvia and Metformin per endocrinology recommendations. * Continue to follow endocrinology recommendations * Discharge with GLP-1 analog #Cardiology recs: Followed troponin x2 <.01, EKG to rule out ACS, and continuing diuresis. Echo results were limited by body habitus, but showed LV 60-65%, with physiologic pericardial effusion, and mild diastolic dysfunction was noted among other findings. * Continue follow cardiology recommendations #DVT ppx:SQ Lovenox #Code status: Full code Problem List: 1. Diabetes mellitus 2. Congestive heart failure 3. COPD (chronic obstructive pulmonary disease) Pain Ratin Pain Location: none Pain Goal: Pain 4 or less Pain Plan: pain pathway Tomorrow's Labs & Rationales: cbc Brianda De Leon 05/02/17 1339: Attending MD Review Statement Attending Statement Attending MD Statement: examined this patient, discuss w/resident/PA/LINEN ATTENDANT, agreed w/resident/PA/LINEN ATTENDANT, reviewed EMR data (avail), discussed with nursing, discussed with case mgmt Attending Assessment/Plan: On lasix po for now. d/w pt the dosing of lasxi as well as timing of lasix. He does not want lasix to be more than 80 mg as it gives him lots of cramps. Will add magnesium supplement. Will keep him on 80mg lasix po bid. Pt on oxygen still. Will try to arrange for oxygen. Pt says he is motivated this time to quit smoking. f/u on pulm recommendations.
--- NOTE | 2017-05-02 09:43 | PN- Pulmonary ---
Subjective HPI/Critical Care Issues: Events and data reviewed stable afebrile Objective Current Medications: Current Medications Sig/Teo Start time Last Medication Dose Route Stop Time Status Admin Acetaminophen 1,000 MG Q6P PRN 04/25 2100 AC IV Albuterol Sulfate 3 ML TID 04/26 1600 AC 05/02 INH 0817 Budesonide/ 2 PUF BID 04/28 2200 AC 05/02 Formoterol Fumarate INH 0912 Enoxaparin Sodium 40 MG DAILY 04/26 1000 AC 05/02 SC 0914 Furosemide 80 MG 7:30 AM, & 4:30 PM 05/02 0730 AC 05/02 PO 0757 Furosemide 80 MG 0700,1300,1900 05/01 1900 DC 05/01 PO 1814 Furosemide 100 MG 0730,1400 05/01 1400 DC 05/01 PO 1356 Furosemide 80 MG 0700,1300,1900 04/30 1300 DC 05/01 PO 0709 Loperamide HCl 2 MG Q6P PRN 04/30 1400 AC 05/01 PO 2335 Metformin HCl 1,000 MG 0800,1700 04/28 1700 AC 05/02 PO 0758 Ondansetron HCl 4 MG Q6P PRN 04/26 1545 AC IV Potassium Chloride 40 MEQ ONCE ONE 05/02 0845 DC 05/02 PO 05/02 0846 0913 Potassium Chloride 40 MEQ BID 04/27 2200 AC 05/02 PO 0913 Prednisone 10 MG DAILY 05/02 1000 AC 05/02 PO 05/03 1001 0914 Prednisone 20 MG DAILY 04/30 1000 DC 05/01 PO 05/01 1001 1015 Sitagliptin Phosphate 100 MG DAILY 04/27 1112 AC 05/02 PO 0914 Tiotropium [place] 1 PUF DAILY 04/27 1115 AC 05/02 INH 0912 Vital Signs & I&O Last 24 Hrs of Vitals and I&O: Vital Signs Date Time Temp Pulse Resp B/P B/P Pulse O2 O2 Flow FiO2 Mean Ox Delivery Rate 05/02 0818 93 Nasal 3.0L Cannula 05/02 0702 98.0 72 18 104/62 92 Nasal Cannula 05/02 0031 74 94 05/01 2242 Nasal 4.0L Cannula 05/017 98.6 78 18 116/60 93 Nasal 4.0L Cannula 05/01 1918 95 Nasal 4.0L Cannula 05/01 1900 91 Room Air 05/01 1900 81 Nasal Cannula 05/01 190 95 Nasal 4.0L Cannula 05/01 1899 93 Nasal 4.0L Cannula 05/01 1535 98.7 88 18 104/64 92 Intake & Output 05/02 1600 05/02 0800 05/02 0000 Intake Total 480 240 Output Total 800 700 Balance -320 -460 Intake, Oral 480 240 Number 0 Bowel Movements Output, Urine 800 700 Patient 372 lb Weight Weight Bed scale Measurement Method Impression/Plan Impression/Plan Impression/Plan: General Appearancepoff cpap A/A/O x 3 Skin No Rashes, No Breakdown, No Significant Lesion Skin Temp/Moisture Exam: Warm/Dry Sepsis Skin Exam (color): Normal for Ethnicity HEENT Atraumatic, PERRLA, EOMI, Mucous Membr. moist/pink Neck Supple, No JVD Cardiovascular Regular Rate, Normal S1, Normal S2, No Murmurs Lungs Clear to Auscultation, Diminished airflow in all lung garcia with scattered rhonchi anteriorly, no wheezing or crackles Abdomen Normal Bowel Sounds, Soft, No Tenderness, No Hepatospenomegaly, No Masses Neurological Somnolent, AAOx0, follows simple commands Extremities No Clubbing, No Cyanosis, No Edema, Normal Pulses, No Tenderness/ Swelling, 4+ bilateral lower extremity swelling with severe scaling, no open wounds Vascular Normal Pulses, Pulses Symmetrical IMPRESSION This is a gentleman with severe morbid obesity with previous gastric sleeve surgery which had initially worked but now has put on sig weight, very severe obstructive sleep apnea with previous cor pulmonale right more than left heart dysfunction in the past, moderate COPD, significant smoking history more than [id number] smoker now smokes more than 1 packs a day, noncompliant with CPAP management, diabetes history, hypertension, hyperlipidemia, history of hypothyroidism, previous admission to this hospital for biventricular heart failure respiratory failure and cor pulmonale, chronic lymphedema of both legs, chronic dermatitis of his leg with lymphedema, previous history of recurrent cellulitis and lymphadenopathy in the groin now comes in with * Resolved Acute on chronic Hypercarbic resp failure due to noncompliance with cpap * Improving Acute corpulmonale with rt heart failure * 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 packs a day smoker) * Sig copd with Acute bronchitis now better * Morbid obesity * Severe TAN and not compliant with cpap * DM and hypothryoid on meds at home * Chronic lymphedema of both lower ext REC/PLAN CPAP at 12 upon dc Keep HOB up Cont lasix but reduce it to bid and last dose should be taken at 2 pm (he does not use cpap due to frequent urination at night) (Can use a higher dose bid) Keep potassium above 4 needs to go home on potassium Wean off steroids in 2 days Cont nebs atc start spiriva one puff daily Symbicort bid Wean oxygen and keep sat at 92 Pt needs home oxygen Cont lovenox Pt counselled about his cpap use and wt loss and he understands risks and benefits of rx PT needs to use cpap at hs and to continue oxygen aswell with cpap
--- NOTE | 2017-05-02 10:52 | PN- Cardiology ---
Subjective Subjective: Mr. Edwards feels well overall and at his baseline. He states that he feels the swelling is at the level where he can go back to work. He denied any difficulty breathing or feelings of breathlessness although he is on oxygen supplementation. He denied any chest pain or discomfort, palpitations, or dizziness/lightheadedness. Of note, he states his Lasix dose was at one point 80 mg 4 times a day, which worked well to keep his swelling at bay. He does complain of some cramping with these doses however states it is tolerable. He states any higher doses and he has significant cramping to the point where he can't complete his activities of daily living. His vitals remained stable overnight and throughout the day, on oxygen supplementation, currently being titrated down. His rhythm strip overnight and this morning revealed sinus rhythm with a rate ranging from 66-83 bpm and some PACs. Objective Vital Signs and I&Os Vital Signs Date Time Temp Pulse Resp B/P B/P Pulse O2 O2 Flow FiO2 Mean Ox Delivery Rate 05/02 0818 93 Nasal 3.0L Cannula 05/02 0702 98.0 72 18 104/62 92 Nasal Cannula 05/02 0031 74 94 05/01 2242 Nasal 4.0L Cannula 05/01 2147 98.6 78 18 116/60 93 Nasal 4.0L Cannula 05/01 1918 95 Nasal 4.0L Cannula 05/01 1900 91 Room Air 05/01 1900 81 Nasal Cannula 05/01 1900 95 Nasal 4.0L Cannula 05/01 1900 93 Nasal 4.0L Cannula 05/01 1535 98.7 88 18 104/64 92 Intake & Output 05/02 1600 05/02 0800 05/02 0000 05/01 1600 05/01 0800 05/01 0000 Intake Total 480 093 212 0513 Output Total 800 554 989 5686 Balance -320 -460 780 -325 -628 Intake, Oral 480 745 901 3468 Number 0 Bowel Movements Output, Urine 800 963 151 5085 Patient 168.906 kg 167.914 kg Weight Weight Bed scale Measurement Method Physical Exam General Appearance: well developed/nourished, alert, awake, comfortable Ears, Nose, Throat: mild cyanosis of lips Neck: full range of motion, no JVD noted, although he has a large neck circumference Respiratory: diminished air entry BL and diffusely. no wheezing, rales, rhonchi noted. Cardiovascular: regular rate/rhythm, no significant murmurs, rubs or gallops noted Abdomen: normal bowel sounds, soft, non-tender, distention (obese) Extremities: significant LE non-pitting edema BL. Pt states this is his baseline. stasis dermatitis changes noted. Current Medications: Current Medications Sig/Teo Start time Last Medication Dose Route Stop Time Status Admin Acetaminophen 1,000 MG Q6P PRN 04/25 2100 AC IV Albuterol Sulfate 3 ML TID 04/26 1600 AC 05/02 INH 0817 Budesonide/ 2 PUF BID 04/28 2200 AC 05/02 Formoterol Fumarate INH 0912 Enoxaparin Sodium 40 MG DAILY 04/26 1000 AC 05/02 SC 0914 Furosemide 80 MG 7:30 AM, & 4:30 PM 05/02 0730 AC 05/02 PO 0757 Furosemide 80 MG 0700,1300,1900 05/01 1900 DC 05/01 PO 1814 Furosemide 100 MG 0730,1400 05/01 1400 DC 05/01 PO 1356 Furosemide 80 MG 0700,1300,1900 04/30 1300 DC 05/01 PO 0709 Loperamide HCl 2 MG Q6P PRN 04/30 1400 AC 05/01 PO 2335 Metformin HCl 1,000 MG 0800,1700 04/28 1700 AC 05/02 PO 0758 Ondansetron HCl 4 MG Q6P PRN 04/26 1545 AC IV Potassium Chloride 40 MEQ ONCE ONE 05/02 0845 DC 05/02 PO 05/02 0846 0913 Potassium Chloride 40 MEQ BID 04/27 2200 AC 05/02 PO 0913 Prednisone 10 MG DAILY 05/02 1000 AC 05/02 PO 05/03 1001 0914 Sitagliptin Phosphate 100 MG DAILY 04/27 1112 AC 05/02 PO 0914 Tiotropium [place] 1 PUF DAILY 04/27 1115 AC 05/02 INH 0912 Results Last 48 Hrs of Labs/Mics: Laboratory Tests 05/02/17 0642: Anion Gap 9, Estimated GFR > 60, BUN/Creatinine Ratio 22.2 05/01/17 0623: Anion Gap 10, Estimated GFR > 60, BUN/Creatinine Ratio 26.7 H, CBC w Diff NO MAN DIFF REQ, RBC 5.39, MCV 94.2 H, MCH 30.1, MCHC 32.0 L, RDW 16.3 H, MPV 7.5, Gran % 74.1, Lymphocytes % 16.3 L, Monocytes % 7.3, Eosinophils % 2.0, Basophils % 0.3, Absolute Granulocytes 8.5 H, Absolute Lymphocytes 1.9, Absolute Monocytes 0.8 H, Absolute Eosinophils 0.2, Absolute Basophils 0 Assessment/Plan Assessment/Plan Problem List 1. Acute on chronic hypoxic/hypercapnic respiratory failure secondary to COPD exacerbation 2. Obstructive sleep apnea 3. Chronic lower extremity edema/lymphedema 4. Hypertension 5. Hyperlipidemia 6. Diabetes 7. Hypothyroidism 8. Morbid Obesity Plan: * Patient appears to be at his baseline. With intensive diuretic therapy he has not had significant improvement with his lower extremity edema, and his only lost 4 kg. Given his echocardiogram findings and previous lower extremity infections, more notably his left lower extremity which required surgery, his lower extremity edema is most likely secondary to lymphedema [due to multiple infections/obesity], as opposed to a cardiogenic etiology. * I would continue his current diuretics, with care to keep his electrolytes repleted given his high diuretic dose/requirement. Consider follow-up in the CHF clinic for weekly labs, and if he persistently remains hypokalemic, we will consider a potassium sparing diuretic. * He will also require specialty physical therapy treatment with lower extremity massage, elevation and compression, and exercise. * Plan to discharge to home today with O2 supplementation * Plan to f/u with Pulmonology and CHF clinic in the outpt setting. Continue telemetry? No
[2017-05-02 14:06] VITALS: BP 100/50
[2017-05-02 22:52] VITALS: BP 108/70
[2017-05-03 07:39] VITALS: BP 112/72
--- NOTE | 2017-05-03 09:16 | PN- Pulmonary ---
Subjective HPI/Critical Care Issues: DOing well stable WIlling to go home on oxygen Objective Current Medications: Current Medications Sig/Teo Start time Last Medication Dose Route Stop Time Status Admin Acetaminophen 1,000 MG Q6P PRN 04/25 2100 AC IV Albuterol Sulfate 3 ML TID 04/26 1600 AC 05/03 INH 0827 Budesonide/ 2 PUF BID 04/28 2200 AC 05/03 Formoterol Fumarate INH 0820 Enoxaparin Sodium 40 MG DAILY 04/26 1000 AC 05/03 SC 0819 Furosemide 80 MG 7:30 AM, & 4:30 PM 05/02 0730 AC 05/03 PO 0818 Loperamide HCl 2 MG .STK-MED ONE 05/02 1836 DC PO 05/02 1837 Loperamide HCl 2 MG Q6P PRN 04/30 1400 AC 05/02 PO 1839 Magnesium Chloride 64 MG DAILY 05/02 1130 AC 05/03 PO 0819 Metformin HCl 1,000 MG 0800,1700 04/28 1700 AC 05/03 PO 0818 Ondansetron HCl 4 MG Q6P PRN 04/26 1545 AC IV Potassium Chloride 40 MEQ BID 04/27 2200 AC 05/03 PO 0819 Prednisone 10 MG DAILY 05/02 1000 AC 05/03 PO 05/03 1001 0819 Sitagliptin Phosphate 100 MG DAILY 04/27 1112 AC 05/03 PO 0818 Tiotropium [place] 1 PUF DAILY 04/27 1115 AC 05/03 INH 0820 Vital Signs & I&O Last 24 Hrs of Vitals and I&O: Vital Signs Date Time Temp Pulse Resp B/P B/P Pulse O2 O2 Flow FiO2 Mean Ox Delivery Rate 05/04 827 94 Nasal 3.0L Cannula 05/03 0739 98.4 73 18 112/72 93 Nasal Cannula 05/03 0017 76 96 05/03 0000 BIPAP 05/02 2252 96.9 75 18 108/70 94 Room Air 05/023 76 96 05/02 2024 94 Nasal 4.0L Cannula 05/02 1600 Nasal 3.0L Cannula 05/02 1406 98.9 79 22 100/50 93 Nasal 3.0L Cannula Intake & Output 05/03 1600 05/03 0800 05/03 0000 Intake Total 110 1000 Output Total 1500 Balance 110 -500 Intake, IV 10 Intake, Oral 100 1000 Number 2 Bowel Movements Output, Urine 1500 Patient 369 lb Weight Impression/Plan Impression/Plan Impression/Plan: Impression/Plan: General Appearancepoff cpap A/A/O x 3 Skin No Rashes, No Breakdown, No Significant Lesion Skin Temp/Moisture Exam: Warm/Dry Sepsis Skin Exam (color): Normal for Ethnicity HEENT Atraumatic, PERRLA, EOMI, Mucous Membr. moist/pink Neck Supple, No JVD Cardiovascular Regular Rate, Normal S1, Normal S2, No Murmurs Lungs Clear to Auscultation, Diminished airflow in all lung garcia with scattered rhonchi anteriorly, no wheezing or crackles Abdomen Normal Bowel Sounds, Soft, No Tenderness, No Hepatospenomegaly, No Masses Neurological Somnolent, AAOx0, follows simple commands Extremities No Clubbing, No Cyanosis, No Edema, Normal Pulses, No Tenderness/ Swelling, 4+ bilateral lower extremity swelling with severe scaling, no open wounds Vascular Normal Pulses, Pulses Symmetrical IMPRESSION This is a gentleman with severe morbid obesity with previous gastric sleeve surgery which had initially worked but now has put on sig weight, very severe obstructive sleep apnea with previous cor pulmonale right more than left heart dysfunction in the past, moderate COPD, significant smoking history more than [id number] smoker now smokes more than 1 packs a day, noncompliant with CPAP management, diabetes history, hypertension, hyperlipidemia, history of hypothyroidism, previous admission to this hospital for biventricular heart failure respiratory failure and cor pulmonale, chronic lymphedema of both legs, chronic dermatitis of his leg with lymphedema, previous history of recurrent cellulitis and lymphadenopathy in the groin now comes in with * Resolved Acute on chronic Hypercarbic resp failure due to noncompliance with cpap * Improving Acute corpulmonale with rt heart failure * 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 packs a day smoker) * Sig copd with Acute bronchitis now better * Morbid obesity * Severe TAN and not compliant with cpap * DM and hypothryoid on meds at home * Chronic lymphedema of both lower ext REC/PLAN CPAP at 12 upon dc Ask resp therapist to adjust the setting on his home machine Keep HOB up Lasix twice a day with 40 meq daily Dc steroids start spiriva one puff daily Symbicort bid Wean oxygen and keep sat at 92 Pt needs home oxygen and pt willing to use it at home Pt counselled about his cpap use and wt loss and he understands risks and benefits of rx PT needs to use cpap at hs and to continue oxygen aswell with cpap
--- NOTE | 2017-05-03 09:39 | PN- Housestaff ---
Jamari PALM,[facility] 05/03/17 0939: Subjective Follow-up For: Acute respiratory failure secondary to COPD CHF Diabetes Subjective: No acute events overnight. No SOB, currently on 3L. No complaints. Review of Systems Constitutional: Reports: see HPI. Objective Last 24 Hrs of Vital Signs/I&O Vital Signs Date Time Temp Pulse Resp B/P B/P Pulse O2 O2 Flow FiO2 Mean Ox Delivery Rate 05/03 0828 94 Nasal 3.0L Cannula 05/03 0800 94 Nasal 3.0L Cannula 05/03 0739 98.4 73 18 112/72 93 Nasal Cannula 05/03 0017 76 96 05/03 0000 BIPAP 05/02 2252 96.9 75 18 108/70 94 Room Air Intake & Output 05/03 1600 05/03 0800 05/03 0000 Intake Total 110 1000 Output Total 1500 Balance 110 -500 Intake, IV 10 Intake, Oral 100 1000 Number 2 Bowel Movements Output, Urine 1500 Patient 369 lb Weight Physical Exam General Appearance: Alert, Oriented X3, Cooperative, No Acute Distress Cardiovascular: Regular Rate, Normal S1, Normal S2 Lungs: basilar crackles Abdomen: Normal Bowel Sounds, Soft, No Tenderness Extremities: 3+ LLE edema, 2+ RLE edema Vascular: 2+ radial pulse Assessment/Plan Assessment: Assessment: A: 57-year-old male with past history of COPD, obstructive sleep apnea noncompliant with CPAP, cor pulmonale, [place], hypertension, hyperlipidemia, diabetes, hypothyroidism, gastric bypass surgery, chronic lymphedema presenting for acute on chronic hypercarbic respiratory failure secondary to COPD initially admitted to the ICU and new onset diabetes. P: #Acute on chronic hypoxic hypercarbic respiratory failure 2/2 COPD, CHF, acute bronchitis Patient's clinical picture, lab values, and a fairly benign chest x-ray is suggestive of acute bronchitis that exacerbated his COPD and landed up in acute respiratory failure as shown by the ABG. He received BiPAP treatments originally ICU, and is now saturating well on nasal cannula. Lower extremity Dopplers were negative for DVT. * Patient being discharged with home O2 and cpap * Continue by mouth Lasix 80BID, patient refused >100mg dosing * added slow mg during admision to help with possible cramps 2/2 lasix * Completed 5 day course of azithromycin * Monitor potassium, keep above 4 * Completed steroid taper, cont spiriva, symbicort * Continue TRC/nebs at night cpap * Follow Sputum culture if possible * Patient will be discharged with nicotine gum * Follow pulmonology and cardiology recommendations * pt should f/u with chf clinic upon discharge #Mild leukocytosis -Patient afebrile,cont to monitor. Most likely secondary to steroids. #Diabetes mellitus Patient's previous HbA1c levels were consistently high but although the patient had not accepted the diagnosis yet, according to the discussions with the patient himself and his PCP Orion Nicole MD. We had a conversation about the condition yesterday at length, and he agreed to continue diabetes care and would further follow-up with his PCP. * Hemoglobin A1c 8.3, albumin 3.4 * Diabetic diet, Encourage protein supplementation * Continue januvia and Metformin per endocrinology recommendations. * Continue to follow endocrinology recommendations * f/u outpatient for GLP-1 agonist * #Cardiology recs: Followed troponin x2 <.01, EKG to rule out ACS, and continuing diuresis. Echo results were limited by body habitus, but showed LV 60-65%, with physiologic pericardial effusion, and mild diastolic dysfunction was noted among other findings. * Continue follow cardiology recommendations #DVT ppx:SQ Lovenox #Code status: Full code Problem List: 1. Diabetes mellitus 2. Congestive heart failure 3. COPD (chronic obstructive pulmonary disease) Pain Ratin Pain Location: none Pain Goal: Pain 4 or less Pain Plan: pain pathway Tomorrow's Labs & Rationales: none [email or web address] 05/03/17 1454: Attending MD Review Statement Attending Statement Attending MD Statement: examined this patient, discuss w/resident/PA/MANAGER OF SECURITY, agreed w/resident/PA/MANAGER OF SECURITY, reviewed EMR data (avail), discussed with nursing, discussed with case mgmt Attending Assessment/Plan: Pt being dced to home and home oxygen and cpap was arranged. Pt counselled on quiting smoking and says he is going to quit it and refused nictoine replacement therapy. Pt told to be compliant with CPAP at home. d/w p the care plan. see dc summary for more details.
[2017-05-03] MEDS ORDERED: LASIX40 M1 PO (11:02)
[2017-05-03] MEDS ORDERED: JANUVIA100 M1 PO ×2 (11:07→11:30)
[2017-05-03] MEDS ORDERED: SPIRIVA18 MCG INH (11:30)
[2017-05-03] MEDS ORDERED: METFORMIN HCL1000 M1 PO (11:30)
[2017-05-03] MEDS ORDERED: NICOTINE LOZENGE2 M1 PO (11:30)
[2017-05-03] MEDS ORDERED: SYMBICORT 80-10.2 GM INH (11:30)
--- NOTE | 2017-05-04 17:10 | Discharge Summary ---
Visit Information Visit Dates Admission Date: 04/25/17 Discharge Date: 05/03/17 Hospital Course Course Attending Physician: Moises PALM,Brianda Carr Primary Care Physician: Orion Nicole MD Hospital Course: A: 57-year-old male with past history of COPD, obstructive sleep apnea noncompliant with CPAP, cor pulmonale, [place], hypertension, hyperlipidemia, diabetes, hypothyroidism, gastric bypass surgery, chronic lymphedema presenting for acute on chronic hypercarbic respiratory failure secondary to COPD initially initially admitted to the ICU and also found to have new onset diabetes. P: #Acute on chronic hypoxic hypercarbic respiratory failure 2/2 COPD, CHF, acute bronchitis Upon presentation, the patient's clinical data and cxr suggested acute bronchitis that exacerbated his COPD. His ABG suggested acute resp failure requiring BiPAP treatments in the ICU. Of note, the patient is noncompliant on cpap. B/l duplex us of LE and d-dimer were negative. His clinical presentation improved and he was transitioned to nasal cannula and downgraded to the telemtry unit. He was continued on oxygen and cpap at night and weaned down to 3L upon discharge. He completed a 5 day course of azithromycin for possible bronchitis. He was started on IV steroids and completed a po prednisone taper. He was also treated with trc, nebs, symbicort and spiriva. The patient was initally treated with IV lasix and transitioned to po lasix 80 TID, his home dose. We attempted to change his regimen to 100mg BID but the patient refused due to cramping. He was given slow mag during admission to help with the possible crampings. Echocardiogram revealed LVEF 60-65%, with physiologic pericardial effusion, and mild diastolic dysfunction, but the RV systolic pressure was unassassble. He was discharged on home O2 and cpap. He was counseled on smoking cessation and discharged with nicotine gum. He was advised to f/u with pulm, cards and the chf clinic. #Diabetes mellitus The patient has HbA1c levels were consistent with diabetes during outpatient testing but had refused to accept he was diabetic. Hemoglobin A1c was 8.3. He was seen by endocrinology and started on januvia and metformin. His blood sugars were well controlled during admission. He was instructed to follow up with endocrinology to begin a GLP-1 agonist. #Mild leukocytosis secondary to steroids The patient remained afebrile during admission with mild leukocytosis. Most likely secondary to steroids. Allergies: Coded Allergies: NO KNOWN ALLERGIES (05/18/14) Disposition Summary Disposition Principal Diagnosis: Acute on chronic hypoxic hypercarbic respiratory failure Additional Diagnosis: COPD CHF Acute bronchitis CPAP noncompliance Diabetes Discharge Disposition: home health services Discharge Instructions General Discharge Information Code Status: Full Code Patient's Diet: Heart healthy Patient's Activity: As tolerated Follow-Up Instructions/Appts: Please follow up with your PCP. Please follow up with your engineering systems analyst. Please follow up with your new pulmnologist Dr. Talbot. Please follow up with Dr. West your new manager functional. Please continue your medications as perscribed. Please follow up with the COPD/CHF wellness clinic here at [phone]. Medications at Discharge Discharge Medications: Stop taking the following medications: Furosemide (Furosemide) 80 MG TABLET ORAL THREE TIMES DAILY Days = 30 Start taking the following new medications: Sitagliptin Phosphate (Januvia) 100 MG TABLET 1 Tablet ORAL DAILY Qty = 30 No Refills Instructions: . Comments: Last Taken: 05/03/17 Time: 0820 AM Metformin HCl (Metformin HCl) 1,000 MG TABLET 1 Tablet ORAL 0800,1700 Qty = 60 No Refills Instructions: . Comments: Last Taken: 05/03/17 Time: 0820 AM Budesonide/Formoterol Fumarate (Symbicort 80-4.5 Mcg Inhaler) 80 MCG-4.5 MCG/ ACTUATION HFA.AER.AD 2 Puff Inhale through mouth TWICE DAILY Qty = 1 Refills = 1 Instructions: . Comments: Last Taken: 05/03/17. Time: 0820 AM Nicotine Polacrilex (Nicotine Lozenge) 2 MG LOZNG.MINI 1 Lozenge ORAL EVERY 2 HOURS NEEDED as needed for NICOTINE Qty = 1 No Refills Instructions: . Comments: NOT GIVEN IN HOSPITAL. Tiotropium [place] (Spiriva) 18 MCG CAP.W.DEV 1 Puff Inhale through mouth DAILY Qty = 1 Refills = 1 Instructions: . Comments: Last Taken: 05/03/17 Time: 0820 AM Potassium Chloride (Klor-Con M20) 20 MEQ TAB.ER.PRT 2 Tablet ORAL TWICE DAILY Qty = 60 No Refills Comments: Last Taken: 05/03/17. Time: 0820 AM Furosemide (Lasix) 40 MG TABLET 2 Tablet ORAL 730AM AND 2PM Qty = 120 No Refills Comments: Last Taken: 05/03/17. Time: 0820 AM Copies To: Corey PALM,Orion Rankin
== END 2017-05-03 13:30 | DRG 189 ==
LOC: ERH 16:30 → ERHI 19:43 → CRI 19:43 → ENRESERV 20:12 → ENTRNSPT 21:46 → EDTRNSPT 21:53 → EDTRNSPTSTS 21:53 → CRI 22:05 → CMPTRNSPT 22:21 → 1NO 04-27 16:00 → ENPENDDIS 05-03 11:31 → ENTRNSPT 05-03 13:19 → EDTRNSPTSTS 05-03 13:20 → 1NO 05-03 13:30 → CMPTRNSPT 05-03 13:32
PROVIDERS: Emergency Medicine; Internal Medicine Interventional Cardiology; Student in an Organized Health Care Education/Training Program
PROC: 5A09457 Assistance with Respiratory Ventilation, 24-96 Consecutive Hours, Continuous Positive Airway Pressure (ICD-10-PCS; principal; 2017-04-26)
DX: J96.21 Acute and chronic respiratory failure with hypoxia (principal); I26.09 Other pulmonary embolism with acute cor pulmonale; I50.33 Acute on chronic diastolic (congestive) heart failure; E87.3 Alkalosis; J44.0 Chronic obstructive pulmonary disease with (acute) lower respiratory infection; E66.01 Morbid (severe) obesity due to excess calories; E11.9 Type 2 diabetes mellitus without complications; D72.829 Elevated white blood cell count, unspecified; Z68.43 Body mass index [BMI] 50.0-59.9, adult; J44.1 Chronic obstructive pulmonary disease with (acute) exacerbation; E78.5 Hyperlipidemia, unspecified; J96.22 Acute and chronic respiratory failure with hypercapnia; G47.33 Obstructive sleep apnea (adult) (pediatric); E03.9 Hypothyroidism, unspecified; Z85.05 Personal history of malignant neoplasm of liver; I25.2 Old myocardial infarction; I87.2 Venous insufficiency (chronic) (peripheral); Z82.49 Family history of ischemic heart disease and other diseases of the circulatory system; Z83.3 Family history of diabetes mellitus; Z80.1 Family history of malignant neoplasm of trachea, bronchus and lung; Z80.3 Family history of malignant neoplasm of breast; Z98.84 Bariatric surgery status; I10 Essential (primary) hypertension; F17.210 Nicotine dependence, cigarettes, uncomplicated; Z91.19 Patient's noncompliance with other medical treatment and regimen; J20.9 Acute bronchitis, unspecified; R60.0 Localized edema; R19.7 Diarrhea, unspecified
CPT/HCPCS: 1NSP; CCU; 36415; 36592; 71045; 80307; 81003; 82436; 87070; 87086; 93005; 93010; 93970; 96374; 99291; C8929; J0456; J0696; J1650; J1815; J1940; J2405; J2920; J2930; J3490; J7060; J7512; Q9957